=== PATIENT | male | born 1945 | race African-American/Black ===

== ENCOUNTER 2019-05-07 17:17 | Inpatient (IN) | payer OTHER ==
[~2019-05-07] VITALS: Ht 182.9 cm; Wt 87.5 kg
[2019-05-07] MEDS ORDERED: POTA20TA4 PO (18:54)
[2019-05-07] MEDS ORDERED: CIME200T6 PO (18:54)
[2019-05-07] MEDS ORDERED: CHOL200027 PO (18:54)
[2019-05-07] MEDS ORDERED: PRAV10TA2 PO (18:54)
[2019-05-07] MEDS ORDERED: SERT100T8 PO (18:54)
[2019-05-07] MEDS ORDERED: CYAN100031 PO (18:54)
[2019-05-07] MEDS ORDERED: OLAN5TAB7 PO (18:54)
[2019-05-07] MEDS ORDERED: FLUT15.812 NS (18:54)
[2019-05-07] MEDS ORDERED: ACET500T68 PO (18:54)
[2019-05-07] MEDS ORDERED: METF-550 PO (18:54)
[2019-05-07] MEDS ORDERED: QUET50TA5 PO (18:54)
[2019-05-07] MEDS ORDERED: RIVA1PAT23 TD (18:54)
[2019-05-07] MEDS ORDERED: GLIP5TAB10 PO (18:54)
[2019-05-07] MEDS ORDERED: MEMA10TA PO (18:54)
[2019-05-07] MEDS ORDERED: FLUO40CA2 PO (18:54)
[2019-05-07] MEDS ORDERED: ASPI-630 PO (18:54)
[2019-05-07] MEDS ORDERED: LISI10TA2 PO (18:54)
[2019-05-07] MEDS ORDERED: EXEN10PE3 SQ (18:54)
[2019-05-07] MEDS ORDERED: FOLI0.8C PO (18:54)
[2019-05-07] MEDS ORDERED: QUET200T4 PO (18:54)
[2019-05-07] MEDS ORDERED: MULT1CAP15 PO (18:54)
--- NOTE | 2019-05-07 19:00 | HP ---
ADMIT DATE: 05/07/2019 PSYCHIATRIC ADMISSION HISTORY AND EVALUATION This note covers elements not covered in my initial note 05/07/2019. IDENTIFYING DATA: The patient is a 73-year-old -Samoan male, referred to us from the [facility] in [place] Emergency Room where he presented from [facility] at the behest of the rn case mgr at [facility]. The patient has a history of dementia; Alzheimer's, vascular type. He has been an inpatient at [facility] for several weeks. Despite this behaviorally, he was unmanageable, more angry, irritable, labile in the evening and therefore could not be accepted for placement in a nursing facility. [facility] staff coordinated his visit to the ER, he was found to be medically stable and then referred to us for inpatient psychiatric stabilization. CHIEF COMPLAINT: "There is nothing wrong with my memory." On direct questioning after this, the patient was unaware of the year or who the president was, quite oriented just to himself. HISTORY OF PRESENT ILLNESS: The patient has a history of dementia; Alzheimer's, vascular type. Reportedly, he also has a past history of alcohol abuse, though details are unclear. Additionally, the patient has a history of PTSD. As noted, he has been at the [facility], inpatient hospitalization for 6-8 weeks and adjustments were being made in his psychotropics, but he had failed all of this. He was grabbing at nursing staff's breast. He was agitated, pacing, urinating on the floor at times, aggressive towards staff and peers. No clear history of bipolar disorder, suicidal or homicidal ideation. PAST PSYCHIATRIC HISTORY: As above. MEDICAL HISTORY: Positive for diabetes mellitus, hypertension, CHF, edema, osteoarthritis. He is in a wheelchair. DRUG ALLERGIES: Negative. CODE STATUS: DNR. FAMILY HISTORY: Noncontributory. SOCIAL HISTORY: Positive for PTSD from past trauma and service questionably. Positive for questionable alcohol abuse. No physical, sexual or elder abuse history is noted. Not known to be a perpetrator. DIET: Regular. CURRENT PSYCHOTROPICS: MRAD was reviewed. LABORATORY DATA: Reviewed. MENTAL STATUS EXAMINATION: The patient was seen individually in the evening of 05/07/2019. He is seated in a wheelchair in his room, met him shortly after he arrived on the unit. He is not very verbal. Insight, judgment, recent and remote memory, attention, concentration, fund of knowledge poor consistent with his diagnosis. He does appear somewhat paranoid, depressed. LABORATORY DATA: Reviewed. IMPRESSION: Major neurocognitive disorder, multifactorial, possibly Alzheimer, vascular, questionably alcohol with delusion, depression, behavioral disturbance; anxiety disorder, unspecified; impulse control disorder, unspecified. Rest as above. PLAN: Admit to Geropsychiatry Unit at [facility]. I will see the patient daily individually from a psychiatric standpoint. Medical followup with Dr. Garcia. Continue the patient on his current psychotropics. Observe baseline, adjust further as clinically indicated. Consider Depakote as a mood stabilizer. Estimated length of stay 10-12 days. DISPOSITION: Plans to [facility] as coordinated with the [facility]. ABIGAIL HORNE MD DR: MINOO/parul JOB#: [id number] / [id number]
[2019-05-07] MEDS ORDERED: MAG HYDROX/AL HYDROX/SIMETH 30 ML ORAL.SUSP PO PRN (19:45)
[2019-05-07] MEDS: FAMOTIDINE 20 MG TABLET PO SCH (20:08)
[2019-05-07] MEDS: QUEtiapine 100 MG TABLET. PO SCH (20:08)
[2019-05-07] MEDS: ATORVASTATIN CALCIUM 10 MG TABLET. PO SCH (20:08)
[2019-05-07] MEDS: ACETAMINOPHEN 500 MG TABLET PO SCH (20:08)
[2019-05-07 21:11] VITALS: BP 135/83
--- NOTE | 2019-05-07 21:36 | PDOC ---
Exam Note: Hamlet Note: Please also refer to the separate dictated note~for this date of service dictated separately.~Patient seen individually. Discussed the patient with Nursing staff reviewed the chart.~Reviewed interim history and current functioning. Reviewed vital signs,~Labs/ Radiology~and current medications noted below. Continue current treatment with the changes noted in the dictated addendum note Assessment: Vital Signs/I&O: Vital Signs Date Time Temp Pulse Resp B/P (MAP) Pulse Ox O2 Delivery O2 Flow Rate FiO2 05/07/19 21:11 98.2 79 18 135/83 (100) 100 Room Air Labs: Laboratory Tests Test 05/07/19 19:12 Glucose (Fingerstick) 193 mg/dL (70-99) H Current Medications: Meds: Current Medications Medications (Trade) Dose Ordered Sig/Samaria Route PRN Reason Start Time Stop Time Status Last Admin Dose Admin Acetaminophen (Tylenol) 500 mg BID PO 05/07/19 21:00 05/07/19 20:08 Famotidine (Pepcid) 20 mg HS PO 05/07/19 21:00 05/07/19 20:08 Atorvastatin Calcium (Lipitor) 5 mg QHS PO 05/07/19 21:00 05/07/19 20:08 Quetiapine Fumarate (SEROquel) 200 mg HS PO 05/07/19 21:00 05/07/19 20:08 I have reviewed the current psychotropics carefully including drug interactions. Risk benefit ratio favors no change other than as noted in my dictated progress note. Diagnosis: Problems: (1) Anxiety disorder (2) Dementia in Alzheimer's disease with delusions (3) Dementia in Alzheimer's disease with depression (4) Dementia, vascular, with delusions (5) Dementia, vascular, with depression (6) Impulse control disorder ABIGAIL HORNE MD May 07, 2019 21:36
[2019-05-08 05:34] VITALS: BP 148/76
[2019-05-08 07:14] LABS: BACTERIA,URINE 0 /HPF (0-FEW); BILIRUBIN,URINE NEG (NEG); CLARITY,URINE CLEAR; COLOR,URINE YELLOW; GLUCOSE,URINE 500 mg/dL (NEG); NITRITE,URINE NEG (NEG); SQUAMOUS EPITHELIAL CELL,UR FEW /LPF
[2019-05-08 08:44] LABS: BASO % 0 % (0-3); EOS # 0.1 x10^3/uL (0.0-0.7); EOS % 3 % (0-3); HEMATOCRIT 38.6 % (39.0-53.0); HEMOGLOBIN 12.5 g/dL (13.0-17.5); LYMPH # 1.3 x10^3/uL (1.0-4.8); LYMPH % 32 % (24-48); MEAN CORPUSCULAR HEMOGLOBIN 28 pg (25-35); MEAN CORPUSCULAR HGB CONC 33 g/dL (31-37); MEAN CORPUSCULAR VOLUME 87 fL (79-100); MONO # 0.3 x10^3/uL (0.0-1.1); MONO % 8 % (0-9); NEUT # 2.4 x10^3uL (1.8-7.7); NEUT % 57 % (31-73); PLATELET COUNT 202 x10^3/uL (140-400); RED BLOOD COUNT 4.45 x10^6/uL (4.30-5.70); RED CELL DISTRIBUTION WIDTH 14.3 % (11.5-14.5); WHITE BLOOD COUNT 4.2 x10^3/uL (4.0-11.0)
[2019-05-08 08:53] LABS: ALBUMIN/GLOBULIN RATIO 0.7 (1.0-1.7); CALCIUM 8.5 mg/dL (8.5-10.1); CREATININE 1.2 mg/dL (0.7-1.3); GFR 71.8; MAGNESIUM 1.3 mg/dL (1.8-2.4); POTASSIUM 4.1 mmol/L (3.5-5.1); TOTAL BILIRUBIN 0.3 mg/dL (0.2-1.0); TOTAL PROTEIN 7.3 g/dL (6.4-8.2)
[2019-05-08] MEDS: MEMANTINE 10 MG TABLET. PO SCH (09:00)
[2019-05-08] MEDS: CYANOCOBALAMIN (VITAMIN B-12) 1,000 MCG TABLET. PO SCH (09:08)
[2019-05-08] MEDS: MULTIVITAMIN with MINERAL TABLET. PO SCH (09:08)
[2019-05-08] MEDS: FLUoxetine HCL 20 MG CAPSULE PO SCH (09:08)
[2019-05-08] MEDS: LISINOPRIL 10 MG TABLET PO SCH (09:08)
[2019-05-08] MEDS: QUEtiapine 50 MG TABLET. PO SCH ×2 (09:08→14:13)
[2019-05-08] MEDS: CHOLECALCIFEROL (VITAMIN D3) 1,000 UNIT TABLET PO SCH (09:09)
[2019-05-08] MEDS: metFORMIN XR 500 MG TAB.ER.24H PO SCH ×2 (09:10→17:38)
[2019-05-08] MEDS: ACETAMINOPHEN 500 MG TABLET PO SCH ×2 (09:11→19:01)
[2019-05-08] MEDS: ASPIRIN 81 MG TAB.CHEW PO SCH (09:11)
[2019-05-08] MEDS: SERTRALINE 100 MG TABLET. PO SCH (09:11)
[2019-05-08] MEDS: POTASSIUM CHLORIDE 20 MEQ TABLET.ER. PO SCH (09:11)
[2019-05-08] MEDS: FOLIC ACID 1 MG TABLET PO SCH (09:12)
[2019-05-08] MEDS: RIVASTIGMINE 9.5MG PATCH. TD SCH (09:12)
[2019-05-08] MEDS: glipiZIDE 5 MG TABLET PO SCH ×2 (09:12→17:38)
[2019-05-08] MEDS: FLUTICASONE 50MCG/NASAL SPRAY 16GM BOTTLE. NS SCH (09:13)
[2019-05-08 12:59] LABS: THYROID STIM HORMONE (TSH) 2.499 uIU/mL (0.358-3.740)
--- NOTE | 2019-05-08 13:45 | PN ---
DATE: 05/08/2019 SUBJECTIVE: The patient was seen today, met with the staff, chart reviewed and also covering for Dr. Chiu. Staff reports since admission, he has settled down, mostly calm and cooperative. The patient apparently was making sexually inappropriate comments towards female staff prior to coming here. The patient apparently spent [address] [facility] in [place] and he was a resident prior to that at [facility] then he returned to [facility] and they decided to send him here because of the patient's continued behavior problems. The patient also exhibited other behavior problems including increased agitation, pacing and urinating on the floor and also grabbing nursing staff breasts. OBSERVATION: VITAL SIGNS: Temperature 98.1, blood pressure 148/76, pulse 69, respirations 18, O2 sat 97%. GENERAL: Slept about 6 hours last night. The patient's appetite is fair. The patient tends to isolate himself. MEDICATIONS: The patient's current medications include Prozac 40 mg daily plus 100 mg daily, Exelon patch 1 daily, Seroquel 50 mg b.i.d., Namenda 10 mg daily, Seroquel 200 mg at night and also olanzapine 5 mg b.i.d. p.r.n. The patient is not having any side effects. LABORATORY DATA: The patient's lab reviewed. No significant change from prior levels. ASSESSMENT: Major neurocognitive disorder, most likely Alzheimer's with delusions, depression and behavioral disturbances, generalized anxiety disorder and consider alcohol amnestic disorder. PLAN: Continue with the treatment. LENGTH OF STAY: 7-10 days. SHANIKA HILL MD DR: RANDALL/parul JOB#: [id number] / [id number]
[2019-05-08 15:37] VITALS: BP 127/83
[2019-05-08] MEDS: FAMOTIDINE 20 MG TABLET PO SCH (19:01)
[2019-05-08] MEDS: QUEtiapine 100 MG TABLET. PO SCH (19:01)
[2019-05-08] MEDS: ATORVASTATIN CALCIUM 10 MG TABLET. PO SCH (19:01)
[2019-05-08] MEDS: MAGNESIUM OXIDE 400 MG TABLET PO SCH (19:37)
--- NOTE | 2019-05-09 04:00 | EKG ---
[address] [address] Test Date: 2019-05-08 Test Time: 09:44:49 Pat Name: TOMÁS OSORIO Department: Room: [facility] 1 Gender: M Master Black Belt: TERRY : 1945 Requested By: ABIGAIL HORNE Order Number: [id number] Reading MD: Ilir Velez MD Measurements Intervals [place] Rate: 82 P: 53 NH: 190 QRS: -48 QRSD: 72 T: 85 QT: 342 QTc: 402 Interpretive Statements SINUS RHYTHM Electronically Signed On 06-09-2019 10:00:02 THIRD HELPER by Ilir Velez MD
[2019-05-09 05:37] LABS: HEMOGLOBIN A1C 7.8 % (4.8-5.6)
[2019-05-09 05:45] VITALS: BP 126/66
[2019-05-09] MEDS ORDERED: FLU VAX QS 2019-20 (36MOS+)/PF 0.5 ML SYRINGE. VAX IM ONE (09:00)
[2019-05-09] MEDS: RIVASTIGMINE 9.5MG PATCH. TD SCH (09:04)
[2019-05-09] MEDS: FLUoxetine HCL 20 MG CAPSULE PO SCH (09:05)
[2019-05-09] MEDS: metFORMIN XR 500 MG TAB.ER.24H PO SCH ×2 (09:05→16:49)
[2019-05-09] MEDS: LISINOPRIL 10 MG TABLET PO SCH (09:05)
[2019-05-09] MEDS: POTASSIUM CHLORIDE 20 MEQ TABLET.ER. PO SCH (09:05)
[2019-05-09] MEDS: FOLIC ACID 1 MG TABLET PO SCH (09:06)
[2019-05-09] MEDS: QUEtiapine 50 MG TABLET. PO SCH ×2 (09:06→14:06)
[2019-05-09] MEDS: ACETAMINOPHEN 500 MG TABLET PO SCH ×2 (09:06→20:17)
[2019-05-09] MEDS: CYANOCOBALAMIN (VITAMIN B-12) 1,000 MCG TABLET. PO SCH (09:06)
[2019-05-09] MEDS: MULTIVITAMIN with MINERAL TABLET. PO SCH (09:06)
[2019-05-09] MEDS: CHOLECALCIFEROL (VITAMIN D3) 1,000 UNIT TABLET PO SCH (09:06)
[2019-05-09] MEDS: MAGNESIUM OXIDE 400 MG TABLET PO SCH ×3 (09:06→20:17)
[2019-05-09] MEDS: SERTRALINE 100 MG TABLET. PO SCH (09:06)
[2019-05-09] MEDS: MEMANTINE 10 MG TABLET. PO SCH (09:06)
[2019-05-09] MEDS: ASPIRIN 81 MG TAB.CHEW PO SCH (09:07)
[2019-05-09] MEDS: glipiZIDE 5 MG TABLET PO SCH ×2 (09:07→16:49)
[2019-05-09] MEDS: FLUTICASONE 50MCG/NASAL SPRAY 16GM BOTTLE. NS SCH (09:07)
[2019-05-09 16:15] VITALS: BP 160/91
[2019-05-09] MEDS ORDERED: QUEtiapine 50 MG TABLET. PO ONE (20:00)
[2019-05-09] MEDS: ATORVASTATIN CALCIUM 10 MG TABLET. PO SCH (20:16)
[2019-05-09] MEDS: FAMOTIDINE 20 MG TABLET PO SCH (20:16)
[2019-05-09] MEDS: QUEtiapine 100 MG TABLET. PO SCH (20:17)
[2019-05-09] MEDS ORDERED: INSULIN GLARGINE SYRINGE. SQ SCH (21:00)
--- NOTE | 2019-05-10 04:01 | CONS ---
DATE OF CONSULTATION: 05/08/2019 REASON FOR CONSULTATION: Medical management. HISTORY OF PRESENT ILLNESS: The patient is a 73-year-old -Y[place]i male patient who apparently was at [place] [facility] as well as [facility]. He was admitted to this unit on account of being aggressive towards staff and peers, grabbing at the nursing staff breasts, agitated, pacing, urinating on the floor, all this in a background of dementia, posttraumatic stress disorder and impulse control disorder. The patient himself is very demented, does not really give any useful information. PAST MEDICAL HISTORY: Significant for type 2 diabetes mellitus, diabetic peripheral neuropathy, diabetic retinopathy and chronic kidney disease most likely due to diabetic nephropathy. He has also hypertension, benign prostatic hypertrophy, erectile dysfunction, hyperlipidemia, obstructive sleep apnea, iron deficiency anemia and gastroesophageal reflux disease. PAST SURGICAL HISTORY: Unobtainable. FAMILY HISTORY: Noncontributory. SOCIAL HISTORY: He apparently is a resident at [facility]. He apparently has questionable alcohol abuse and is known to have posttraumatic stress disorder from ____ services. ALLERGIES: He is allergic to LISINOPRIL, LOSARTAN and SILDENAFIL. MEDICATIONS: He is currently on following medications: Rivastigmine for Exelon 9.5 mg 24 hours transdermal patch daily, pravastatin sodium 10 mg at bedtime, lisinopril 10 mg once a day, aspirin 81 mg chewable tablet once a day, acetaminophen 500 mg twice a day, fluoxetine 40 mg daily, sertraline 100 mg daily, olanzapine 5 mg twice a day as needed for agitation, Seroquel 50 mg p.o. b.i.d., Seroquel 200 mg at bedtime. He is on Namenda 10 mg daily, potassium chloride 20 mEq once a day, Flonase 2 sprays to each nostril once a day, cimetidine 200 mg at bedtime, metformin 500 mg extended release, he takes 750 mg twice a day, Byetta 10 mcg in 0.04 mL injector the patient takes 250 mg mcg subcutaneously weekly, glipizide 5 mg twice a day, cyanocobalamin 1000 mcg once a day, folic acid 800 mcg once a day, vitamin D3/cholecalciferol 2000 international units once a day and multivitamin 1 tablet once a day. REVIEW OF SYSTEMS: Unobtainable. PHYSICAL EXAMINATION: GENERAL: When I saw him this afternoon, he was sitting at the edge of the bed comfortably, in no apparent distress. There is no pallor, jaundice or cyanosis. No lymphadenopathy, no thyromegaly. No jugular venous distention. No limb edema. VITAL SIGNS: His heart rate was 88, blood pressure was 127/83, temperature was 97.4, respiratory rate was 16, and oxygen saturation was 98% on room air. HEAD, EYES, EARS, NOSE AND THROAT: Showed normocephalic, atraumatic. NECK: Supple. CARDIAC: Normal first and second heart sounds. No gallop or murmur. CHEST: Clear to auscultation. No crepitation or rhonchi. ABDOMEN: Distended, soft, nontender. NEUROLOGIC: He is demented, but without any obvious lateralizing sign. All his cranial nerves are intact. He moves extremities without difficulty, ambulates without assistance or assistive devices. LABORATORY DATA: Showed a white cell count 4200, hemoglobin 12.5, hematocrit 38.6, MCV 87, and platelet count 202,000 with normal manual differential. His chemistry showed a serum sodium 139, potassium 4.1, chloride 102, bicarbonate 33, anion gap of 4, BUN 15, creatinine 1.2, estimated GFR was 72 mL per minute, glucose 188, calcium was 8.5, magnesium was 1.3. Serum iron was 45, TIBC was 199 and iron saturation was 23. His total bilirubin, AST, ALT, alkaline phosphatase were normal. Total protein was 7.3, albumin 3. Serum triglycerides were 80, total cholesterol 124, LDL cholesterol was 59, VLDL was 16, and HDL cholesterol was 49, the ratio was 2. His TSH was 2.499. His total T3 was 60 and total T4 was 6.1. Urinalysis was essentially unremarkable. IMPRESSION AND PLAN: All in all, this patient is medically stable. His vital signs are stable. All his lab works are within acceptable range. There is no evidence of any urinary tract infection. The only abnormality obviously is marked hypomagnesemia. His magnesium is only 1.3, for which I will start him on magnesium oxide. Other than that, I would continue all his other medications and we will follow all his labs that are still pending at the time of this dictation. Thank you, Dr. Chiu for allowing me to participate in the care of this patient. NATA CHE MD DR: Brianne JOB#: [id number] / [id number]
[2019-05-10] MEDS: LISINOPRIL 10 MG TABLET PO SCH (05:49)
[2019-05-10 05:58] VITALS: BP 182/102
[2019-05-10] MEDS ORDERED: INSULIN NPH/REG HUM 70/30 300 UNITS/3 ML VIAL. SQ SCH ×2 (08:00→12:00)
[2019-05-10] MEDS: SERTRALINE 100 MG TABLET. PO SCH (09:03)
[2019-05-10] MEDS: MEMANTINE 10 MG TABLET. PO SCH (09:03)
[2019-05-10] MEDS: CHOLECALCIFEROL (VITAMIN D3) 1,000 UNIT TABLET PO SCH (09:03)
[2019-05-10] MEDS: metFORMIN XR 500 MG TAB.ER.24H PO SCH ×2 (09:04→17:14)
[2019-05-10] MEDS: FOLIC ACID 1 MG TABLET PO SCH (09:04)
[2019-05-10] MEDS: FLUoxetine HCL 20 MG CAPSULE PO SCH (09:04)
[2019-05-10] MEDS: MULTIVITAMIN with MINERAL TABLET. PO SCH (09:04)
[2019-05-10] MEDS: QUEtiapine 50 MG TABLET. PO SCH ×2 (09:04→14:28)
[2019-05-10] MEDS: ACETAMINOPHEN 500 MG TABLET PO SCH ×2 (09:04→21:21)
[2019-05-10] MEDS: CYANOCOBALAMIN (VITAMIN B-12) 1,000 MCG TABLET. PO SCH (09:05)
[2019-05-10] MEDS: POTASSIUM CHLORIDE 20 MEQ TABLET.ER. PO SCH (09:05)
[2019-05-10] MEDS: ASPIRIN 81 MG TAB.CHEW PO SCH (09:05)
[2019-05-10] MEDS: MAGNESIUM OXIDE 400 MG TABLET PO SCH ×3 (09:05→21:21)
[2019-05-10] MEDS: glipiZIDE 5 MG TABLET PO SCH ×2 (09:05→17:14)
[2019-05-10] MEDS: FLUTICASONE 50MCG/NASAL SPRAY 16GM BOTTLE. NS SCH (09:06)
[2019-05-10] MEDS: RIVASTIGMINE 9.5MG PATCH. TD SCH (09:06)
--- NOTE | 2019-05-10 10:10 | PN ---
DATE: 05/09/2019 SUBJECTIVE: The patient was seen today, met with the staff, chart reviewed. The patient continued to exhibit some emotional lability, increased agitation, combative, also verbally abusive at times and the patient is also exhibiting impulse control, explosive temper and having difficulty processing information. OBSERVATION: VITAL SIGNS: Temperature 97.3, blood pressure 126/66, pulse 79, respirations 14, O2 sat 100%. GENERAL: Slept about 7 hours last night. LABORATORY DATA: The patient's lab reviewed. MEDICATIONS: The patient's current medications include Prozac 40 mg daily, Zoloft 100 mg daily, Exelon patch 9.5 mg daily, Seroquel 50 mg b.i.d. and 200 mg at night, Namenda 10 mg daily and Zyprexa 5 mg p.r.n. twice a day. The patient is not having any side effects to medications. ASSESSMENT: 1. Major neurocognitive disorder, multifactorial including Alzheimer's, vascular, alcohol-induced with delusions, depression and behavioral disturbances. 2. Anxiety disorder, unspecified. 3. Impulse control disorder, unspecified. PLAN: To continue with the treatment. Continue with the current medications. LENGTH OF STAY: 4-5 days. SHANIKA HILL MD DR: RANDALL/parul JOB#: [id number] / [id number]
[2019-05-10] MEDS: INSULIN LISPRO 300 UNITS/3 ML VIAL. SQ SCH ×2 (12:00→17:17)
[2019-05-10 15:57] VITALS: BP 137/80
[2019-05-10] MEDS: INSULIN GLARGINE SYRINGE. SQ SCH (21:00)
--- NOTE | 2019-05-10 21:15 | PDOC ---
Exam Note: Hamlet Note: Please also refer to the separate dictated note~for this date of service dictated separately.~Patient seen individually. Discussed the patient with Nursing staff reviewed the chart.~Reviewed interim history and current functioning. Reviewed vital signs,~Labs/ Radiology~and current medications noted below. Continue current treatment with the changes noted in the dictated addendum note Assessment: Vital Signs/I&O: Vital Signs Date Time Temp Pulse Resp B/P (MAP) Pulse Ox O2 Delivery O2 Flow Rate FiO2 05/10/19 15:57 97.8 83 18 137/80 (99) 98 05/08/19 05:34 Room Air I & O 05/09/19 05/09/19 05/10/19 15:00 23:00 07:00 Intake Total 960 ml 540 ml Balance 960 ml 540 ml Labs: Laboratory Tests Test 05/10/19 07:57 05/10/19 12:15 05/10/19 16:43 05/10/19 19:45 Glucose (Fingerstick) 84 mg/dL (70-99) 97 mg/dL (70-99) 181 mg/dL (70-99) H 82 mg/dL (70-99) Current Medications: Meds: Current Medications Medications (Trade) Dose Ordered Sig/Samaria Route PRN Reason Start Time Stop Time Status Last Admin Dose Admin Insulin Human Lispro (HumaLOG) 12 units BIDWMEALS SQ 05/10/19 17:00 05/10/19 17:17 I have reviewed the current psychotropics carefully including drug interactions. Risk benefit ratio favors no change other than as noted in my dictated progress note. Diagnosis: Problems: (1) Anxiety disorder (2) Dementia in Alzheimer's disease with delusions (3) Dementia in Alzheimer's disease with depression (4) Dementia, vascular, with delusions (5) Dementia, vascular, with depression (6) Impulse control disorder ABIGAIL HORNE MD May 10, 2019 21:15
[2019-05-10] MEDS: FAMOTIDINE 20 MG TABLET PO SCH (21:21)
[2019-05-10] MEDS: ATORVASTATIN CALCIUM 10 MG TABLET. PO SCH (21:21)
[2019-05-10] MEDS: QUEtiapine 100 MG TABLET. PO SCH (21:22)
[2019-05-11 05:21] VITALS: BP 136/76
[2019-05-11] MEDS: INSULIN LISPRO 300 UNITS/3 ML VIAL. SQ SCH ×3 (08:00→17:00)
[2019-05-11] MEDS: POTASSIUM CHLORIDE 20 MEQ TABLET.ER. PO SCH (08:59)
[2019-05-11] MEDS: ACETAMINOPHEN 500 MG TABLET PO SCH ×2 (08:59→21:26)
[2019-05-11] MEDS: ASPIRIN 81 MG TAB.CHEW PO SCH (08:59)
[2019-05-11] MEDS: FOLIC ACID 1 MG TABLET PO SCH (09:00)
[2019-05-11] MEDS: glipiZIDE 5 MG TABLET PO SCH ×2 (09:00→17:18)
[2019-05-11] MEDS: SERTRALINE 100 MG TABLET. PO SCH (09:00)
[2019-05-11] MEDS: CHOLECALCIFEROL (VITAMIN D3) 1,000 UNIT TABLET PO SCH (09:00)
[2019-05-11] MEDS: MULTIVITAMIN with MINERAL TABLET. PO SCH (09:00)
[2019-05-11] MEDS: MAGNESIUM OXIDE 400 MG TABLET PO SCH ×3 (09:00→21:26)
[2019-05-11] MEDS: metFORMIN XR 500 MG TAB.ER.24H PO SCH ×2 (09:00→17:18)
[2019-05-11] MEDS: FLUTICASONE 50MCG/NASAL SPRAY 16GM BOTTLE. NS SCH (09:01)
[2019-05-11] MEDS: LISINOPRIL 10 MG TABLET PO SCH (09:01)
[2019-05-11] MEDS: CYANOCOBALAMIN (VITAMIN B-12) 1,000 MCG TABLET. PO SCH (09:01)
[2019-05-11] MEDS: QUEtiapine 25 MG TABLET. PO SCH (09:01)
[2019-05-11] MEDS: QUEtiapine 50 MG TABLET. PO SCH (14:39)
[2019-05-11 16:17] VITALS: BP 154/85
[2019-05-11] MEDS ORDERED: DEXTROSE ORAL GEL 15 GM TUBE. ONE (20:40)
[2019-05-11] MEDS: INSULIN GLARGINE SYRINGE. SQ SCH (21:00)
[2019-05-11] MEDS: QUEtiapine 100 MG TABLET. PO SCH (21:26)
[2019-05-11] MEDS: FAMOTIDINE 20 MG TABLET PO SCH (21:26)
[2019-05-11] MEDS: ATORVASTATIN CALCIUM 10 MG TABLET. PO SCH (21:26)
--- NOTE | 2019-05-11 21:33 | PDOC ---
Exam Note: Hamlet Note: Please also refer to the separate dictated note~for this date of service dictated separately.~Patient seen individually. Discussed the patient with Nursing staff reviewed the chart.~Reviewed interim history and current functioning. Reviewed vital signs,~Labs/ Radiology~and current medications noted below. Continue current treatment with the changes noted in the dictated addendum note Assessment: Vital Signs/I&O: Vital Signs Date Time Temp Pulse Resp B/P (MAP) Pulse Ox O2 Delivery O2 Flow Rate FiO2 05/11/19 16:17 98.6 84 16 154/85 (108) 97 05/08/19 05:34 Room Air I & O 05/10/19 05/10/19 05/11/19 15:00 23:00 07:00 Intake Total 840 ml 720 ml Balance 840 ml 720 ml Labs: Laboratory Tests Test 05/11/19 12:02 05/11/19 17:06 05/11/19 19:19 05/11/19 20:39 Glucose (Fingerstick) 147 mg/dL (70-99) H 111 mg/dL (70-99) H 57 mg/dL (70-99) L 55 mg/dL (70-99) L Current Medications: Meds: Current Medications Medications (Trade) Dose Ordered Sig/Samaria Route PRN Reason Start Time Stop Time Status Last Admin Dose Admin Quetiapine Fumarate (SEROquel) 75 mg DAILY PO 05/11/19 09:00 05/11/19 09:01 Quetiapine Fumarate (SEROquel) 50 mg 1400 PO 05/11/19 14:00 05/11/19 14:39 I have reviewed the current psychotropics carefully including drug interactions. Risk benefit ratio favors no change other than as noted in my dictated progress note. Diagnosis: Problems: (1) Anxiety disorder (2) Dementia in Alzheimer's disease with delusions (3) Dementia in Alzheimer's disease with depression (4) Dementia, vascular, with delusions (5) Dementia, vascular, with depression (6) Impulse control disorder ABIGAIL HORNE MD May 11, 2019 21:33
[2019-05-12 05:18] VITALS: BP 120/67
[2019-05-12] MEDS: FLUTICASONE 50MCG/NASAL SPRAY 16GM BOTTLE. NS SCH ×2 (09:00→09:14)
[2019-05-12] MEDS: ASPIRIN 81 MG TAB.CHEW PO SCH (09:12)
[2019-05-12] MEDS: CYANOCOBALAMIN (VITAMIN B-12) 1,000 MCG TABLET. PO SCH (09:12)
[2019-05-12] MEDS: SERTRALINE 100 MG TABLET. PO SCH (09:13)
[2019-05-12] MEDS: MAGNESIUM OXIDE 400 MG TABLET PO SCH ×3 (09:13→19:22)
[2019-05-12] MEDS: CHOLECALCIFEROL (VITAMIN D3) 1,000 UNIT TABLET PO SCH (09:13)
[2019-05-12] MEDS: glipiZIDE 5 MG TABLET PO SCH ×2 (09:13→17:33)
[2019-05-12] MEDS: POTASSIUM CHLORIDE 20 MEQ TABLET.ER. PO SCH (09:13)
[2019-05-12] MEDS: QUEtiapine 25 MG TABLET. PO SCH (09:13)
[2019-05-12] MEDS: LISINOPRIL 10 MG TABLET PO SCH (09:14)
[2019-05-12] MEDS: MULTIVITAMIN with MINERAL TABLET. PO SCH (09:14)
[2019-05-12] MEDS: FOLIC ACID 1 MG TABLET PO SCH (09:14)
[2019-05-12] MEDS: metFORMIN XR 500 MG TAB.ER.24H PO SCH ×2 (09:14→17:33)
[2019-05-12] MEDS: ACETAMINOPHEN 500 MG TABLET PO SCH ×2 (09:15→19:21)
[2019-05-12] MEDS: INSULIN LISPRO 300 UNITS/3 ML VIAL. SQ SCH ×3 (09:17→17:00)
[2019-05-12] MEDS: QUEtiapine 50 MG TABLET. PO SCH (13:54)
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
[2019-05-12 15:44] VITALS: BP 138/82
[2019-05-12] MEDS: METHYL SALICYLATE/MENTHOL TOPICAL OINTMENT 57GM TUBE. TP PRN (16:42)
[2019-05-12] MEDS: DEXTROSE ORAL GEL 15 GM TUBE. PO PRN (19:20)
[2019-05-12] MEDS: QUEtiapine 100 MG TABLET. PO SCH (19:21)
[2019-05-12] MEDS: FAMOTIDINE 20 MG TABLET PO SCH (19:21)
[2019-05-12] MEDS: ATORVASTATIN CALCIUM 10 MG TABLET. PO SCH (19:22)
[2019-05-12] MEDS: INSULIN GLARGINE SYRINGE. SQ SCH (19:22)
--- NOTE | 2019-05-12 20:54 | PDOC ---
Exam Note: Hamlet Note: Please also refer to the separate dictated note~for this date of service dictated separately.~Patient seen individually. Discussed the patient with Nursing staff reviewed the chart.~Reviewed interim history and current functioning. Reviewed vital signs,~Labs/ Radiology~and current medications noted below. Continue current treatment with the changes noted in the dictated addendum note Assessment: Vital Signs/I&O: Vital Signs Date Time Temp Pulse Resp B/P (MAP) Pulse Ox O2 Delivery O2 Flow Rate FiO2 05/12/19 15:44 98.2 88 18 138/82 (100) 99 05/12/19 05:18 Room Air I & O 05/11/19 05/11/19 05/12/19 14:59 22:59 06:59 Intake Total 840 ml 360 ml Balance 840 ml 360 ml Labs: Laboratory Tests Test 05/11/19 21:30 05/12/19 07:31 05/12/19 12:08 05/12/19 16:48 Glucose (Fingerstick) 88 mg/dL (70-99) 83 mg/dL (70-99) 190 mg/dL (70-99) H 74 mg/dL (70-99) Test 05/12/19 19:13 05/12/19 19:49 Glucose (Fingerstick) 57 mg/dL (70-99) L 69 mg/dL (70-99) L Current Medications: Meds: Current Medications Medications (Trade) Dose Ordered Sig/Samaria Route PRN Reason Start Time Stop Time Status Last Admin Dose Admin Glucose (Insta-Glucose) 15 gm PRN Q15MIN PRN PO LOW BLOOD SUGAR 05/12/19 09:45 05/12/19 19:20 I have reviewed the current psychotropics carefully including drug interactions. Risk benefit ratio favors no change other than as noted in my dictated progress note. Diagnosis: Problems: (1) Anxiety disorder (2) Dementia in Alzheimer's disease with delusions (3) Dementia in Alzheimer's disease with depression (4) Dementia, vascular, with delusions (5) Dementia, vascular, with depression (6) Impulse control disorder ABIGAIL HORNE MD May 12, 2019 20:54
[2019-05-13 05:44] VITALS: BP 153/91
[2019-05-13] MEDS: metFORMIN XR 500 MG TAB.ER.24H PO SCH ×2 (07:41→17:00)
[2019-05-13] MEDS: DIVALPROEX 125 MG CAP.SPRINK PO SCH ×2 (07:41→17:00)
[2019-05-13] MEDS: MAGNESIUM OXIDE 400 MG TABLET PO SCH ×3 (07:41→19:19)
[2019-05-13] MEDS: POTASSIUM CHLORIDE 20 MEQ TABLET.ER. PO SCH (07:42)
[2019-05-13] MEDS: FOLIC ACID 1 MG TABLET PO SCH (07:42)
[2019-05-13] MEDS: LISINOPRIL 10 MG TABLET PO SCH (07:42)
[2019-05-13] MEDS: ASPIRIN 81 MG TAB.CHEW PO SCH (07:42)
[2019-05-13] MEDS: CYANOCOBALAMIN (VITAMIN B-12) 1,000 MCG TABLET. PO SCH (07:42)
[2019-05-13] MEDS: CHOLECALCIFEROL (VITAMIN D3) 1,000 UNIT TABLET PO SCH (07:43)
[2019-05-13] MEDS: SERTRALINE 100 MG TABLET. PO SCH (07:43)
[2019-05-13] MEDS: QUEtiapine 25 MG TABLET. PO SCH (07:43)
[2019-05-13] MEDS: glipiZIDE 5 MG TABLET PO SCH ×2 (07:43→17:00)
[2019-05-13] MEDS: MULTIVITAMIN with MINERAL TABLET. PO SCH (07:43)
[2019-05-13] MEDS: ACETAMINOPHEN 500 MG TABLET PO SCH ×2 (07:43→19:22)
[2019-05-13] MEDS: FLUTICASONE 50MCG/NASAL SPRAY 16GM BOTTLE. NS SCH (09:00)
[2019-05-13] MEDS: INSULIN LISPRO 300 UNITS/3 ML VIAL. SQ SCH ×3 (09:07→17:00)
[2019-05-13] MEDS: QUEtiapine 50 MG TABLET. PO SCH (14:00)
[2019-05-13 16:25] VITALS: BP 101/61
[2019-05-13] MEDS ORDERED: INSULIN GLARGINE SYRINGE. SQ SCH (18:15)
[2019-05-13] MEDS: DEXTROSE ORAL GEL 15 GM TUBE. PO PRN (19:17)
[2019-05-13] MEDS: QUEtiapine 100 MG TABLET. PO SCH (19:19)
[2019-05-13] MEDS: FAMOTIDINE 20 MG TABLET PO SCH (19:19)
[2019-05-13] MEDS: ATORVASTATIN CALCIUM 10 MG TABLET. PO SCH (19:20)
[2019-05-13] MEDS: INSULIN GLARGINE SYRINGE. SQ SCH (19:21)
[2019-05-13 20:13] VITALS: BP 146/93
--- NOTE | 2019-05-13 21:12 | PDOC ---
Exam Note: Hamlet Note: Please also refer to the separate dictated note~for this date of service dictated separately.~Patient seen individually. Discussed the patient with Nursing staff reviewed the chart.~Reviewed interim history and current functioning. Reviewed vital signs,~Labs/ Radiology~and current medications noted below. Continue current treatment with the changes noted in the dictated addendum note Assessment: Vital Signs/I&O: Vital Signs Date Time Temp Pulse Resp B/P (MAP) Pulse Ox O2 Delivery O2 Flow Rate FiO2 05/13/19 20:13 78 20 146/93 (110) 96 Room Air 05/13/19 16:25 98.0 I & O 05/12/19 05/12/19 05/13/19 15:00 23:00 07:00 Intake Total 720 ml 480 ml 240 ml Balance 720 ml 480 ml 240 ml Labs: Laboratory Tests Test 05/13/19 07:22 05/13/19 11:50 05/13/19 17:01 05/13/19 19:13 Glucose (Fingerstick) 162 mg/dL (70-99) H 110 mg/dL (70-99) H 73 mg/dL (70-99) 55 mg/dL (70-99) L Test 05/13/19 19:48 05/13/19 20:12 Glucose (Fingerstick) 74 mg/dL (70-99) 119 mg/dL (70-99) H Current Medications: Meds: Current Medications Medications (Trade) Dose Ordered Sig/Samaria Route PRN Reason Start Time Stop Time Status Last Admin Dose Admin Divalproex Sodium (Depakote Sprinkles) 125 mg 0900,1700 PO 05/13/19 09:00 05/13/19 07:41 I have reviewed the current psychotropics carefully including drug interactions. Risk benefit ratio favors no change other than as noted in my dictated progress note. Diagnosis: Problems: (1) Anxiety disorder (2) Dementia in Alzheimer's disease with delusions (3) Dementia in Alzheimer's disease with depression (4) Dementia, vascular, with delusions (5) Dementia, vascular, with depression (6) Impulse control disorder ABIGAIL HORNE MD May 13, 2019 21:12
--- NOTE | 2019-05-14 00:50 | PN ---
DATE: 05/10/2019 PSYCHIATRIC PROGRESS NOTE This late entry 05/10/2019 covers elements not covered in my initial note. SUBJECTIVE: I met with the patient evening of 05/10/2019. Discussed with nursing staff, reviewed the chart, and reviewed information from Dr. Hernandez, who covered for me over the past couple of days. The patient slept 5-1/2 hours previous night per GREGORY Garcia. He remains confused, oriented x 1, verbally aggressive after lunch. He is quite demented and it is unclear whether Namenda and Exelon patch any benefit for him and we will stop it and change the Prozac 40 mg a day to Zoloft 100 mg a day for his mood, anxiety, irritability, and obsessive thought processes. REVIEW OF SYSTEMS: No CV, , pulmonary, eye, ENT system symptoms on review. Reliability poor. Gait unsteady at times. MENTAL STATUS EXAM: Oriented to himself. Insight, judgment, recent and remote memory, attention, concentration, fund of knowledge poor, consistent with his diagnosis mentioned in my initial note. PLAN: Make the changes noted above and increase the Seroquel from 50 mg twice a day and 200 mg at bedtime to 75 mg in the morning, 50 mg in the afternoon, and 200 mg at night. Rest as above. ABIGAIL HORNE MD DR: MINOO/parul JOB#: [id number] / [id number]
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
[2019-05-14 04:54] VITALS: BP 166/82
[2019-05-14] MEDS: INSULIN LISPRO 300 UNITS/3 ML VIAL. SQ SCH ×3 (08:03→17:18)
[2019-05-14] MEDS: metFORMIN XR 500 MG TAB.ER.24H PO SCH ×2 (08:03→16:30)
[2019-05-14] MEDS: FLUTICASONE 50MCG/NASAL SPRAY 16GM BOTTLE. NS SCH (08:04)
[2019-05-14] MEDS: ASPIRIN 81 MG TAB.CHEW PO SCH (08:05)
[2019-05-14] MEDS: POTASSIUM CHLORIDE 20 MEQ TABLET.ER. PO SCH (08:05)
[2019-05-14] MEDS: DIVALPROEX 125 MG CAP.SPRINK PO SCH ×2 (08:05→16:06)
[2019-05-14] MEDS: MAGNESIUM OXIDE 400 MG TABLET PO SCH ×3 (08:05→19:52)
[2019-05-14] MEDS: FOLIC ACID 1 MG TABLET PO SCH (08:05)
[2019-05-14] MEDS: LISINOPRIL 10 MG TABLET PO SCH (08:06)
[2019-05-14] MEDS: QUEtiapine 25 MG TABLET. PO SCH (08:06)
[2019-05-14] MEDS: MULTIVITAMIN with MINERAL TABLET. PO SCH (08:06)
[2019-05-14] MEDS: ACETAMINOPHEN 500 MG TABLET PO SCH ×2 (08:06→19:52)
[2019-05-14] MEDS: CYANOCOBALAMIN (VITAMIN B-12) 1,000 MCG TABLET. PO SCH (08:06)
[2019-05-14] MEDS: SERTRALINE 100 MG TABLET. PO SCH (08:07)
[2019-05-14] MEDS: CHOLECALCIFEROL (VITAMIN D3) 1,000 UNIT TABLET PO SCH (08:07)
[2019-05-14] MEDS ORDERED: EXENATIDE SQ SCH (09:00)
[2019-05-14 09:42] LABS: BASO % 0 % (0-3); EOS # 0.2 x10^3/uL (0.0-0.7); EOS % 3 % (0-3); HEMATOCRIT 35.8 % (39.0-53.0); HEMOGLOBIN 11.8 g/dL (13.0-17.5); LYMPH % 19 % (24-48); MEAN CORPUSCULAR HEMOGLOBIN 29 pg (25-35); MEAN CORPUSCULAR HGB CONC 33 g/dL (31-37); MEAN CORPUSCULAR VOLUME 88 fL (79-100); MONO # 0.5 x10^3/uL (0.0-1.1); MONO % 11 % (0-9); NEUT # 3.3 x10^3uL (1.8-7.7); NEUT % 67 % (31-73); PLATELET COUNT 218 x10^3/uL (140-400); RED BLOOD COUNT 4.08 x10^6/uL (4.30-5.70); RED CELL DISTRIBUTION WIDTH 14.8 % (11.5-14.5)
[2019-05-14 09:53] LABS: ALBUMIN 3.1 g/dL (3.4-5.0); ALBUMIN/GLOBULIN RATIO 0.8 (1.0-1.7); CREATININE 1.2 mg/dL (0.7-1.3); GFR 71.8; POTASSIUM 4.4 mmol/L (3.5-5.1); TOTAL BILIRUBIN 0.3 mg/dL (0.2-1.0); TOTAL PROTEIN 7.1 g/dL (6.4-8.2)
--- NOTE | 2019-05-14 11:07 | PN ---
DATE: 05/13/2019 PSYCHIATRIC PROGRESS NOTE This late entry 05/13/2019 covers elements not covered in my initial note. SUBJECTIVE: I met with the patient evening of 05/13/2019. Per GREGORY Torres, the patient slept 5-1/4 hours previous night. He remains confused, forgetful, less agitated, but redirected. He did receive Zyprexa p.r.n. at night, seemed to do better and gets more agitated, confused in the evening, sometimes sexually inappropriate. He was sedated in the evening of 05/13/2019. His medications at 1700 were held as a consequence of this. Blood sugar was low, will defer to Dr. Garcia. REVIEW OF SYSTEMS: No CV, , pulmonary, eye, ENT system symptoms on review. Reliability poor. MENTAL STATUS EXAM: Oriented to himself. Insight, judgment, recent and remote memory, attention, concentration, fund of knowledge poor, consistent with his diagnosis. IMPRESSION: Major neurocognitive disorder, Alzheimer, vascular with delusion, depression, behavioral disturbance; anxiety disorder, unspecified; impulse control disorder, unspecified; post-traumatic stress disorder. Rest unchanged from admission. PLAN: Continue current psychotropics, Zoloft 100 mg a day, Seroquel 75 mg a.m., 50 mg at 1400, 200 mg at bedtime. We may need to reduce this if sedation persists. Continue Zyprexa p.r.n., Depakote Sprinkles 125 mg twice a day. Check CBC, CMP, valproic acid level, then adjust as clinically indicated. ABIGAIL HORNE MD DR: MINOO/parul JOB#: [id number] / [id number]
[2019-05-14] MEDS ORDERED: INSULIN LISPRO 300 UNITS/3 ML VIAL. SQ SCH (12:00)
[2019-05-14] MEDS: QUEtiapine 50 MG TABLET. PO SCH (13:49)
[2019-05-14 15:47] VITALS: BP 110/72
[2019-05-14] MEDS: QUEtiapine 100 MG TABLET. PO SCH (19:52)
[2019-05-14] MEDS: FAMOTIDINE 20 MG TABLET PO SCH (19:53)
[2019-05-14] MEDS: PRAZOSIN 1 MG CAPSULE. PO SCH (19:53)
[2019-05-14] MEDS: ATORVASTATIN CALCIUM 10 MG TABLET. PO SCH (19:53)
[2019-05-14] MEDS: INSULIN GLARGINE SYRINGE. SQ SCH (19:58)
--- NOTE | 2019-05-14 21:00 | PDOC ---
Exam Note: Hamlet Note: Please also refer to the separate dictated note~for this date of service dictated separately.~Patient seen individually. Discussed the patient with Nursing staff reviewed the chart.~Reviewed interim history and current functioning. Reviewed vital signs,~Labs/ Radiology~and current medications noted below. Continue current treatment with the changes noted in the dictated addendum note Assessment: Vital Signs/I&O: Vital Signs Date Time Temp Pulse Resp B/P (MAP) Pulse Ox O2 Delivery O2 Flow Rate FiO2 05/14/19 19:53 84 163/72 05/14/19 15:47 97.4 16 98 05/14/19 04:54 Room Air I & O 05/13/19 05/13/19 05/14/19 15:00 23:00 07:00 Intake Total 960 ml 480 ml Balance 960 ml 480 ml Labs: Laboratory Tests Test 05/14/19 07:07 05/14/19 09:18 05/14/19 11:39 05/14/19 16:36 Glucose (Fingerstick) 122 mg/dL (70-99) H 127 mg/dL (70-99) H 113 mg/dL (70-99) H White Blood Count 5.0 x10^3/uL (4.0-11.0) Red Blood Count 4.08 x10^6/uL (4.30-5.70) L Hemoglobin 11.8 g/dL (13.0-17.5) L Hematocrit 35.8 % (39.0-53.0) L Mean Corpuscular Volume 88 fL (79-100) Mean Corpuscular Hemoglobin 29 pg (25-35) Mean Corpuscular Hemoglobin Concent 33 g/dL (31-37) Red Cell Distribution Width 14.8 % (11.5-14.5) H Platelet Count 218 x10^3/uL (140-400) Neutrophils (%) (Auto) 67 % (31-73) Lymphocytes (%) (Auto) 19 % (24-48) L Monocytes (%) (Auto) 11 % (0-9) H Eosinophils (%) (Auto) 3 % (0-3) Basophils (%) (Auto) 0 % (0-3) Neutrophils # (Auto) 3.3 x10^3uL (1.8-7.7) Lymphocytes # (Auto) 1.0 x10^3/uL (1.0-4.8) Monocytes # (Auto) 0.5 x10^3/uL (0.0-1.1) Eosinophils # (Auto) 0.2 x10^3/uL (0.0-0.7) Basophils # (Auto) 0.0 x10^3/uL (0.0-0.2) Sodium Level 142 mmol/L (136-145) Potassium Level 4.4 mmol/L (3.5-5.1) Chloride Level 104 mmol/L (98-107) Carbon Dioxide Level 32 mmol/L (21-32) Anion Gap 6 (6-14) Blood Urea Nitrogen 20 mg/dL (8-26) Creatinine 1.2 mg/dL (0.7-1.3) Estimated GFR (Cockcroft-Gault) 71.8 BUN/Creatinine Ratio 17 (6-20) Glucose Level 181 mg/dL (70-99) H Calcium Level 9.0 mg/dL (8.5-10.1) Total Bilirubin 0.3 mg/dL (0.2-1.0) Aspartate Amino Transferase (AST) 15 U/L (15-37) Alanine Aminotransferase (ALT) 19 U/L (16-63) Alkaline Phosphatase 56 U/L (46-116) Total Protein 7.1 g/dL (6.4-8.2) Albumin 3.1 g/dL (3.4-5.0) L Albumin/Globulin Ratio 0.8 (1.0-1.7) L Test 05/14/19 19:16 Glucose (Fingerstick) 161 mg/dL (70-99) H Current Medications: Meds: Current Medications Medications (Trade) Dose Ordered Sig/Samaria Route PRN Reason Start Time Stop Time Status Last Admin Dose Admin Insulin Human Lispro (HumaLOG) 8 units TIDWMEALS SQ 05/14/19 08:00 05/14/19 17:18 Prazosin HCl (Minipress) 1 mg HS PO 05/14/19 21:00 05/15/19 23:00 05/14/19 19:53 I have reviewed the current psychotropics carefully including drug interactions. Risk benefit ratio favors no change other than as noted in my dictated progress note. Diagnosis: Problems: (1) Anxiety disorder (2) Dementia in Alzheimer's disease with delusions (3) Dementia in Alzheimer's disease with depression (4) Dementia, vascular, with delusions (5) Dementia, vascular, with depression (6) Impulse control disorder ABIGAIL HORNE MD May 14, 2019 21:00
[2019-05-15 04:58] VITALS: BP 152/81
[2019-05-15] MEDS: metFORMIN XR 500 MG TAB.ER.24H PO SCH ×2 (08:23→16:53)
[2019-05-15] MEDS: FLUTICASONE 50MCG/NASAL SPRAY 16GM BOTTLE. NS SCH (08:23)
[2019-05-15] MEDS: ASPIRIN 81 MG TAB.CHEW PO SCH (08:23)
[2019-05-15] MEDS: LISINOPRIL 10 MG TABLET PO SCH (08:24)
[2019-05-15] MEDS: POTASSIUM CHLORIDE 20 MEQ TABLET.ER. PO SCH (08:24)
[2019-05-15] MEDS: DIVALPROEX 125 MG CAP.SPRINK PO SCH ×2 (08:24→16:53)
[2019-05-15] MEDS: QUEtiapine 25 MG TABLET. PO SCH (08:24)
[2019-05-15] MEDS: MAGNESIUM OXIDE 400 MG TABLET PO SCH ×3 (08:24→21:54)
[2019-05-15] MEDS: FOLIC ACID 1 MG TABLET PO SCH (08:24)
[2019-05-15] MEDS: CHOLECALCIFEROL (VITAMIN D3) 1,000 UNIT TABLET PO SCH (08:25)
[2019-05-15] MEDS: ACETAMINOPHEN 500 MG TABLET PO SCH ×2 (08:25→21:55)
[2019-05-15] MEDS: MULTIVITAMIN with MINERAL TABLET. PO SCH (08:25)
[2019-05-15] MEDS: CYANOCOBALAMIN (VITAMIN B-12) 1,000 MCG TABLET. PO SCH (08:25)
[2019-05-15] MEDS: SERTRALINE 100 MG TABLET. PO SCH (08:25)
[2019-05-15] MEDS: INSULIN LISPRO 300 UNITS/3 ML VIAL. SQ SCH ×2 (08:26→12:22)
[2019-05-15] MEDS: QUEtiapine 50 MG TABLET. PO SCH (13:12)
[2019-05-15 16:42] VITALS: BP 98/64
[2019-05-15] MEDS: INSULIN GLARGINE SYRINGE. SQ SCH (21:00)
--- NOTE | 2019-05-15 21:26 | PDOC ---
Exam Note: Hamlet Note: Please also refer to the separate dictated note~for this date of service dictated separately.~Patient seen individually. Discussed the patient with Nursing staff reviewed the chart.~Reviewed interim history and current functioning. Reviewed vital signs,~Labs/ Radiology~and current medications noted below. Continue current treatment with the changes noted in the dictated addendum note Assessment: Vital Signs/I&O: Vital Signs Date Time Temp Pulse Resp B/P (MAP) Pulse Ox O2 Delivery O2 Flow Rate FiO2 05/15/19 16:42 98.2 104 20 98/64 (75) 98 Room Air I & O 05/14/19 05/14/19 05/15/19 15:00 23:00 07:00 Intake Total 1080 ml 600 ml Balance 1080 ml 600 ml Labs: Laboratory Tests Test 05/15/19 07:49 05/15/19 11:46 05/15/19 16:33 05/15/19 19:18 Glucose (Fingerstick) 128 mg/dL (70-99) H 165 mg/dL (70-99) H 96 mg/dL (70-99) 39 mg/dL (70-99) *L Test 05/15/19 20:09 Glucose (Fingerstick) 83 mg/dL (70-99) Current Medications: Meds: Current Medications Medications (Trade) Dose Ordered Sig/Samaria Route PRN Reason Start Time Stop Time Status Last Admin Dose Admin Olanzapine (ZyPREXA ZYDIS) 5 mg PRN QID PRN PO PSYCHOSIS 05/14/19 21:45 05/15/19 12:17 I have reviewed the current psychotropics carefully including drug interactions. Risk benefit ratio favors no change other than as noted in my dictated progress note. Diagnosis: Problems: (1) Anxiety disorder (2) Dementia in Alzheimer's disease with delusions (3) Dementia in Alzheimer's disease with depression (4) Dementia, vascular, with delusions (5) Dementia, vascular, with depression (6) Impulse control disorder ABIGAIL HORNE MD May 15, 2019 21:26
[2019-05-15] MEDS: ATORVASTATIN CALCIUM 10 MG TABLET. PO SCH (21:54)
[2019-05-15] MEDS: FAMOTIDINE 20 MG TABLET PO SCH (21:55)
[2019-05-15] MEDS: QUEtiapine 100 MG TABLET. PO SCH (21:55)
[2019-05-15] MEDS: PRAZOSIN 1 MG CAPSULE. PO SCH (22:00)
[2019-05-16 05:05] VITALS: BP 104/52
[2019-05-16] MEDS: INSULIN LISPRO 300 UNITS/3 ML VIAL. SQ SCH ×3 (08:00→17:00)
[2019-05-16] MEDS: MULTIVITAMIN with MINERAL TABLET. PO SCH (08:19)
[2019-05-16] MEDS: CYANOCOBALAMIN (VITAMIN B-12) 1,000 MCG TABLET. PO SCH (08:19)
[2019-05-16] MEDS: DIVALPROEX 125 MG CAP.SPRINK PO SCH ×2 (08:19→17:00)
[2019-05-16] MEDS: QUEtiapine 25 MG TABLET. PO SCH (08:19)
[2019-05-16] MEDS: POTASSIUM CHLORIDE 20 MEQ TABLET.ER. PO SCH (08:19)
[2019-05-16] MEDS: FOLIC ACID 1 MG TABLET PO SCH (08:19)
[2019-05-16] MEDS: metFORMIN XR 500 MG TAB.ER.24H PO SCH ×2 (08:19→17:00)
[2019-05-16] MEDS: CHOLECALCIFEROL (VITAMIN D3) 1,000 UNIT TABLET PO SCH (08:20)
[2019-05-16] MEDS: ASPIRIN 81 MG TAB.CHEW PO SCH (08:20)
[2019-05-16] MEDS: MAGNESIUM OXIDE 400 MG TABLET PO SCH ×3 (08:20→21:53)
[2019-05-16] MEDS: SERTRALINE 100 MG TABLET. PO SCH (08:21)
[2019-05-16] MEDS: ACETAMINOPHEN 500 MG TABLET PO SCH ×2 (08:21→21:53)
[2019-05-16] MEDS: LISINOPRIL 10 MG TABLET PO SCH (08:21)
[2019-05-16] MEDS: FLUTICASONE 50MCG/NASAL SPRAY 16GM BOTTLE. NS SCH (08:22)
[2019-05-16 08:34] LABS: ALBUMIN/GLOBULIN RATIO 0.7 (1.0-1.7); ALK PHOS 57 U/L (46-116); ALT (SGPT) 18 U/L (16-63); ANION GAP 8 (6-14); AST (SGOT) 15 U/L (15-37); BLOOD UREA NITROGEN 18 mg/dL (8-26); BUN/CREATININE RATIO 16 (6-20); CALCIUM 8.8 mg/dL (8.5-10.1); CARBON DIOXIDE 29 mmol/L (21-32); CHLORIDE 104 mmol/L (98-107); CREATININE 1.1 mg/dL (0.7-1.3); GFR 79.4; GLUCOSE 145 mg/dL (70-99); POTASSIUM 4.4 mmol/L (3.5-5.1); SODIUM 141 mmol/L (136-145); TOTAL BILIRUBIN 0.3 mg/dL (0.2-1.0); TOTAL PROTEIN 7.1 g/dL (6.4-8.2)
[2019-05-16 08:57] LABS: BASO % 0 % (0-3); EOS # 0.2 x10^3/uL (0.0-0.7); EOS % 3 % (0-3); HEMATOCRIT 35.9 % (39.0-53.0); HEMOGLOBIN 11.7 g/dL (13.0-17.5); LYMPH # 0.9 x10^3/uL (1.0-4.8); LYMPH % 18 % (24-48); MEAN CORPUSCULAR HEMOGLOBIN 29 pg (25-35); MEAN CORPUSCULAR HGB CONC 33 g/dL (31-37); MEAN CORPUSCULAR VOLUME 88 fL (79-100); MONO # 0.7 x10^3/uL (0.0-1.1); MONO % 15 % (0-9); NEUT # 3.3 x10^3uL (1.8-7.7); NEUT % 64 % (31-73); PLATELET COUNT 211 x10^3/uL (140-400); RED BLOOD COUNT 4.08 x10^6/uL (4.30-5.70); RED CELL DISTRIBUTION WIDTH 14.8 % (11.5-14.5); WHITE BLOOD COUNT 5.1 x10^3/uL (4.0-11.0)
[2019-05-16 09:28] LABS: VAL ACID 16 mcg/mL (50-100)
[2019-05-16] MEDS: QUEtiapine 50 MG TABLET. PO SCH (12:59)
--- NOTE | 2019-05-16 13:54 | RAD ---
AP chest. HISTORY: Diminished lung sounds, congestion AP view was taken of the chest. There is elevation of the right diaphragm. I do not have an old study for comparison. Heart is within normal limits in size. There is mild atelectasis in the right lung base without other definite infiltrates. There is not evidence of heart failure. IMPRESSION: 1. Elevated right diaphragm. 2. Linear atelectasis without other definite infiltrates. Electronically signed by: Onel Rojo MD (05/16/2019 1:51 PM) [id number]
[2019-05-16 15:52] VITALS: BP 161/88
--- NOTE | 2019-05-16 20:47 | PDOC ---
Exam Note: Hamlet Note: Please also refer to the separate dictated note~for this date of service dictated separately.~Patient seen individually. Discussed the patient with Nursing staff reviewed the chart.~Reviewed interim history and current functioning. Reviewed vital signs,~Labs/ Radiology~and current medications noted below. Continue current treatment with the changes noted in the dictated addendum note Assessment: Vital Signs/I&O: Vital Signs Date Time Temp Pulse Resp B/P (MAP) Pulse Ox O2 Delivery O2 Flow Rate FiO2 05/16/19 15:52 97.7 89 16 161/88 (112) 99 05/15/19 16:42 Room Air I & O 05/15/19 05/15/19 05/16/19 15:00 23:00 07:00 Intake Total 480 ml 480 ml Balance 480 ml 480 ml Labs: Laboratory Tests Test 05/16/19 04:59 05/16/19 08:05 05/16/19 11:38 05/16/19 16:25 Glucose (Fingerstick) 109 mg/dL (70-99) H 160 mg/dL (70-99) H 143 mg/dL (70-99) H White Blood Count 5.1 x10^3/uL (4.0-11.0) Red Blood Count 4.08 x10^6/uL (4.30-5.70) L Hemoglobin 11.7 g/dL (13.0-17.5) L Hematocrit 35.9 % (39.0-53.0) L Mean Corpuscular Volume 88 fL (79-100) Mean Corpuscular Hemoglobin 29 pg (25-35) Mean Corpuscular Hemoglobin Concent 33 g/dL (31-37) Red Cell Distribution Width 14.8 % (11.5-14.5) H Platelet Count 211 x10^3/uL (140-400) Neutrophils (%) (Auto) 64 % (31-73) Lymphocytes (%) (Auto) 18 % (24-48) L Monocytes (%) (Auto) 15 % (0-9) H Eosinophils (%) (Auto) 3 % (0-3) Basophils (%) (Auto) 0 % (0-3) Neutrophils # (Auto) 3.3 x10^3uL (1.8-7.7) Lymphocytes # (Auto) 0.9 x10^3/uL (1.0-4.8) L Monocytes # (Auto) 0.7 x10^3/uL (0.0-1.1) Eosinophils # (Auto) 0.2 x10^3/uL (0.0-0.7) Basophils # (Auto) 0.0 x10^3/uL (0.0-0.2) Sodium Level 141 mmol/L (136-145) Potassium Level 4.4 mmol/L (3.5-5.1) Chloride Level 104 mmol/L (98-107) Carbon Dioxide Level 29 mmol/L (21-32) Anion Gap 8 (6-14) Blood Urea Nitrogen 18 mg/dL (8-26) Creatinine 1.1 mg/dL (0.7-1.3) Estimated GFR (Cockcroft-Gault) 79.4 BUN/Creatinine Ratio 16 (6-20) Glucose Level 145 mg/dL (70-99) H Calcium Level 8.8 mg/dL (8.5-10.1) Total Bilirubin 0.3 mg/dL (0.2-1.0) Aspartate Amino Transferase (AST) 15 U/L (15-37) Alanine Aminotransferase (ALT) 18 U/L (16-63) Alkaline Phosphatase 57 U/L (46-116) Total Protein 7.1 g/dL (6.4-8.2) Albumin 3.0 g/dL (3.4-5.0) L Albumin/Globulin Ratio 0.7 (1.0-1.7) L Valproic Acid Level 16 mcg/mL (50-100) L Valproic Acid Last Dose Date 05/15/19 Valproic Acid Last Dose Time 1700 Test 05/16/19 19:32 Glucose (Fingerstick) 155 mg/dL (70-99) H Current Medications: Meds: Current Medications Medications (Trade) Dose Ordered Sig/Samaria Route PRN Reason Start Time Stop Time Status Last Admin Dose Admin Insulin Human Lispro (HumaLOG) 4 units TIDWMEALS SQ 05/16/19 08:00 05/16/19 17:00 I have reviewed the current psychotropics carefully including drug interactions. Risk benefit ratio favors no change other than as noted in my dictated progress note. Diagnosis: Problems: (1) Anxiety disorder (2) Dementia in Alzheimer's disease with delusions (3) Dementia in Alzheimer's disease with depression (4) Dementia, vascular, with delusions (5) Dementia, vascular, with depression (6) Impulse control disorder ABIGAIL HORNE MD May 16, 2019 20:47
[2019-05-16] MEDS: FAMOTIDINE 20 MG TABLET PO SCH (21:53)
[2019-05-16] MEDS: ATORVASTATIN CALCIUM 10 MG TABLET. PO SCH (21:53)
[2019-05-16] MEDS: QUEtiapine 100 MG TABLET. PO SCH (21:53)
[2019-05-16] MEDS: INSULIN GLARGINE SYRINGE. SQ SCH (21:57)
[2019-05-16] MEDS: PRAZOSIN 1 MG CAPSULE. PO SCH (21:58)
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
--- NOTE | 2019-05-17 00:51 | PN ---
DATE: 05/15/2019 PSYCHIATRIC PROGRESS NOTE This late entry 05/15/2019 covers the elements not covered in my initial note. SUBJECTIVE: I met with the patient in the evening of 05/15/2019. The patient slept 6 hours previous night. He was somewhat sexually inappropriate with nursing staff, winking at staff, compliant with medications. Blood sugar was 39, later 85. We will check CBC, CMP, valproic acid level 15. REVIEW OF SYSTEMS: No CV, , pulmonary, eye, ENT system symptoms on review. Reliability poor. MENTAL STATUS EXAM: Oriented to himself. Insight, judgment, recent and remote memory, attention, concentration, fund of knowledge poor, consistent with his diagnosis mentioned in my initial note. PLAN: No change from initial note. MAN Louie HORNE MD DR: MINOO/parul JOB#: [id number] / [id number]
[2019-05-17 06:00] VITALS: BP 149/71
[2019-05-17] MEDS: FLUTICASONE 50MCG/NASAL SPRAY 16GM BOTTLE. NS SCH (08:17)
[2019-05-17] MEDS: metFORMIN XR 500 MG TAB.ER.24H PO SCH ×2 (08:18→17:27)
[2019-05-17] MEDS: CHOLECALCIFEROL (VITAMIN D3) 1,000 UNIT TABLET PO SCH (08:19)
[2019-05-17] MEDS: MAGNESIUM OXIDE 400 MG TABLET PO SCH ×3 (08:19→20:59)
[2019-05-17] MEDS: LISINOPRIL 10 MG TABLET PO SCH (08:19)
[2019-05-17] MEDS: ACETAMINOPHEN 500 MG TABLET PO SCH ×2 (08:20→20:59)
[2019-05-17] MEDS: CYANOCOBALAMIN (VITAMIN B-12) 1,000 MCG TABLET. PO SCH (08:20)
[2019-05-17] MEDS: DIVALPROEX 125 MG CAP.SPRINK PO SCH ×2 (08:20→17:26)
[2019-05-17] MEDS: POTASSIUM CHLORIDE 20 MEQ TABLET.ER. PO SCH (08:20)
[2019-05-17] MEDS: ASPIRIN 81 MG TAB.CHEW PO SCH (08:21)
[2019-05-17] MEDS: FOLIC ACID 1 MG TABLET PO SCH (08:21)
[2019-05-17] MEDS: QUEtiapine 25 MG TABLET. PO SCH (08:21)
[2019-05-17] MEDS: SERTRALINE 100 MG TABLET. PO SCH (08:21)
[2019-05-17] MEDS: MULTIVITAMIN with MINERAL TABLET. PO SCH (08:21)
[2019-05-17] MEDS: INSULIN GLARGINE SYRINGE. SQ SCH (08:26)
[2019-05-17] MEDS: INSULIN LISPRO 300 UNITS/3 ML VIAL. SQ SCH ×3 (08:32→17:29)
[2019-05-17] MEDS: QUEtiapine 50 MG TABLET. PO SCH (15:08)
[2019-05-17 15:55] VITALS: BP 158/88
--- NOTE | 2019-05-17 20:50 | PDOC ---
Exam Note: Hamlet Note: Please also refer to the separate dictated note~for this date of service dictated separately.~Patient seen individually. Discussed the patient with Nursing staff reviewed the chart.~Reviewed interim history and current functioning. Reviewed vital signs,~Labs/ Radiology~and current medications noted below. Continue current treatment with the changes noted in the dictated addendum note Assessment: Vital Signs/I&O: Vital Signs Date Time Temp Pulse Resp B/P (MAP) Pulse Ox O2 Delivery O2 Flow Rate FiO2 05/17/19 15:55 97.2 93 16 158/88 (111) 100 05/15/19 16:42 Room Air I & O 05/16/19 05/16/19 05/17/19 15:00 23:00 07:00 Intake Total 480 ml 360 ml 240 ml Balance 480 ml 360 ml 240 ml Labs: Laboratory Tests Test 05/17/19 01:15 05/17/19 07:31 05/17/19 11:50 05/17/19 16:59 Glucose (Fingerstick) 161 mg/dL (70-99) H 136 mg/dL (70-99) H 111 mg/dL (70-99) H 147 mg/dL (70-99) H Test 05/17/19 19:18 Glucose (Fingerstick) 146 mg/dL (70-99) H Current Medications: Meds: Current Medications Medications (Trade) Dose Ordered Sig/Samaria Route PRN Reason Start Time Stop Time Status Last Admin Dose Admin Prazosin HCl (Minipress) 2 mg HS PO 05/16/19 21:00 05/16/19 21:58 I have reviewed the current psychotropics carefully including drug interactions. Risk benefit ratio favors no change other than as noted in my dictated progress note. Diagnosis: Problems: (1) Anxiety disorder (2) Dementia in Alzheimer's disease with delusions (3) Dementia in Alzheimer's disease with depression (4) Dementia, vascular, with delusions (5) Dementia, vascular, with depression (6) Impulse control disorder ABIGALI HORNE MD May 17, 2019 20:50
[2019-05-17] MEDS: ATORVASTATIN CALCIUM 10 MG TABLET. PO SCH (20:59)
[2019-05-17] MEDS: FAMOTIDINE 20 MG TABLET PO SCH (20:59)
[2019-05-17] MEDS: PRAZOSIN 1 MG CAPSULE. PO SCH (20:59)
[2019-05-17] MEDS: QUEtiapine 100 MG TABLET. PO SCH (20:59)
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
[2019-05-18 05:55] VITALS: BP 144/79
[2019-05-18] MEDS: INSULIN LISPRO 300 UNITS/3 ML VIAL. SQ SCH ×3 (08:00→17:00)
[2019-05-18] MEDS: metFORMIN XR 500 MG TAB.ER.24H PO SCH ×2 (09:02→18:03)
[2019-05-18] MEDS: MULTIVITAMIN with MINERAL TABLET. PO SCH (09:03)
[2019-05-18] MEDS: ACETAMINOPHEN 500 MG TABLET PO SCH ×2 (09:03→19:45)
[2019-05-18] MEDS: CHOLECALCIFEROL (VITAMIN D3) 1,000 UNIT TABLET PO SCH (09:03)
[2019-05-18] MEDS: MAGNESIUM OXIDE 400 MG TABLET PO SCH ×3 (09:03→19:45)
[2019-05-18] MEDS: FOLIC ACID 1 MG TABLET PO SCH (09:04)
[2019-05-18] MEDS: SERTRALINE 100 MG TABLET. PO SCH (09:04)
[2019-05-18] MEDS: CYANOCOBALAMIN (VITAMIN B-12) 1,000 MCG TABLET. PO SCH (09:04)
[2019-05-18] MEDS: ASPIRIN 81 MG TAB.CHEW PO SCH (09:05)
[2019-05-18] MEDS: LISINOPRIL 10 MG TABLET PO SCH (09:05)
[2019-05-18] MEDS: POTASSIUM CHLORIDE 20 MEQ TABLET.ER. PO SCH (09:05)
[2019-05-18] MEDS: DIVALPROEX 125 MG CAP.SPRINK PO SCH ×2 (09:05→18:03)
[2019-05-18] MEDS: QUEtiapine 25 MG TABLET. PO SCH (09:06)
[2019-05-18] MEDS: FLUTICASONE 50MCG/NASAL SPRAY 16GM BOTTLE. NS SCH (09:06)
[2019-05-18] MEDS: QUEtiapine 50 MG TABLET. PO SCH (12:41)
[2019-05-18 15:38] VITALS: BP 134/83
[2019-05-18] MEDS: FAMOTIDINE 20 MG TABLET PO SCH (19:45)
[2019-05-18] MEDS: QUEtiapine 100 MG TABLET. PO SCH (19:45)
[2019-05-18] MEDS: ATORVASTATIN CALCIUM 10 MG TABLET. PO SCH (19:46)
[2019-05-18] MEDS: PRAZOSIN 1 MG CAPSULE. PO SCH (19:46)
[2019-05-18] MEDS: INSULIN GLARGINE SYRINGE. SQ SCH (19:50)
--- NOTE | 2019-05-18 21:13 | PDOC ---
Exam Note: Hamlet Note: Please also refer to the separate dictated note~for this date of service dictated separately.~Patient seen individually. Discussed the patient with Nursing staff reviewed the chart.~Reviewed interim history and current functioning. Reviewed vital signs,~Labs/ Radiology~and current medications noted below. Continue current treatment with the changes noted in the dictated addendum note Assessment: Vital Signs/I&O: Vital Signs Date Time Temp Pulse Resp B/P (MAP) Pulse Ox O2 Delivery O2 Flow Rate FiO2 05/18/19 19:46 93 134/83 05/18/19 15:38 97.9 18 98 05/15/19 16:42 Room Air I & O 05/17/19 05/17/19 05/18/19 15:00 23:00 07:00 Intake Total 480 ml 360 ml Balance 480 ml 360 ml Labs: Laboratory Tests Test 05/18/19 00:28 05/18/19 01:58 05/18/19 05:30 05/18/19 07:30 Glucose (Fingerstick) 65 mg/dL (70-99) L 112 mg/dL (70-99) H 128 mg/dL (70-99) H 107 mg/dL (70-99) H Test 05/18/19 11:57 05/18/19 16:54 05/18/19 19:13 Glucose (Fingerstick) 223 mg/dL (70-99) H 81 mg/dL (70-99) 105 mg/dL (70-99) H Current Medications: I have reviewed the current psychotropics carefully including drug interactions. Risk benefit ratio favors no change other than as noted in my dictated progress note. Diagnosis: Problems: (1) Anxiety disorder (2) Dementia in Alzheimer's disease with delusions (3) Dementia in Alzheimer's disease with depression (4) Dementia, vascular, with delusions (5) Dementia, vascular, with depression (6) Impulse control disorder ABIGAIL HORNE MD May 18, 2019 21:13
--- NOTE | 2019-05-18 22:33 | PN ---
DATE: 05/17/2019 PSYCHIATRIC PROGRESS NOTE This late entry 05/17/2019 covers elements not covered in my initial note. SUBJECTIVE: I met with the patient evening of 05/17/2019. Per GREGORY Jonas, the patient slept 6 hours previous night. He apparently had a "great day" per nursing staff, he has been confused, but more redirectable, not aggressive. Valproic acid level on 05/16/2015, subtherapeutic. AST, ALT unremarkable. Hemoglobin and hematocrit is low, will defer to Dr. Garcia. REVIEW OF SYSTEMS: No CV, , pulmonary, eye, ENT system symptoms on review. Reliability poor. MENTAL STATUS EXAM: Oriented to himself. Insight, judgment, recent and remote memory, attention, concentration, fund of knowledge poor, consistent with his diagnosis mentioned in my initial note. PLAN: No change from initial note. MAN Louie HORNE MD DR: MINOO/parul JOB#: [id number] / [id number]
[2019-05-19 06:05] VITALS: BP 123/72
[2019-05-19] MEDS: metFORMIN XR 500 MG TAB.ER.24H PO SCH ×2 (08:13→16:17)
[2019-05-19] MEDS: FLUTICASONE 50MCG/NASAL SPRAY 16GM BOTTLE. NS SCH (08:19)
[2019-05-19] MEDS: INSULIN LISPRO 300 UNITS/3 ML VIAL. SQ SCH ×3 (08:19→17:30)
[2019-05-19] MEDS: ASPIRIN 81 MG TAB.CHEW PO SCH (08:20)
[2019-05-19] MEDS: MAGNESIUM OXIDE 400 MG TABLET PO SCH ×3 (08:21→19:58)
[2019-05-19] MEDS: POTASSIUM CHLORIDE 20 MEQ TABLET.ER. PO SCH (08:21)
[2019-05-19] MEDS: DIVALPROEX 125 MG CAP.SPRINK PO SCH ×2 (08:21→16:17)
[2019-05-19] MEDS: QUEtiapine 25 MG TABLET. PO SCH (08:21)
[2019-05-19] MEDS: LISINOPRIL 10 MG TABLET PO SCH (08:21)
[2019-05-19] MEDS: FOLIC ACID 1 MG TABLET PO SCH (08:21)
[2019-05-19] MEDS: CHOLECALCIFEROL (VITAMIN D3) 1,000 UNIT TABLET PO SCH (08:22)
[2019-05-19] MEDS: MULTIVITAMIN with MINERAL TABLET. PO SCH (08:22)
[2019-05-19] MEDS: ACETAMINOPHEN 500 MG TABLET PO SCH ×2 (08:22→19:58)
[2019-05-19] MEDS: CYANOCOBALAMIN (VITAMIN B-12) 1,000 MCG TABLET. PO SCH (08:22)
[2019-05-19] MEDS: SERTRALINE 100 MG TABLET. PO SCH (08:22)
[2019-05-19] MEDS: QUEtiapine 50 MG TABLET. PO SCH (13:12)
[2019-05-19 15:52] VITALS: BP 164/89
[2019-05-19] MEDS: FAMOTIDINE 20 MG TABLET PO SCH (19:58)
[2019-05-19] MEDS: ATORVASTATIN CALCIUM 10 MG TABLET. PO SCH (19:58)
[2019-05-19] MEDS: PRAZOSIN 1 MG CAPSULE. PO SCH (19:59)
[2019-05-19] MEDS: QUEtiapine 100 MG TABLET. PO SCH (19:59)
[2019-05-19] MEDS: INSULIN GLARGINE SYRINGE. SQ SCH (20:03)
--- NOTE | 2019-05-19 21:01 | PDOC ---
Exam Note: Hamlet Note: Please also refer to the separate dictated note~for this date of service dictated separately.~Patient seen individually. Discussed the patient with Nursing staff reviewed the chart.~Reviewed interim history and current functioning. Reviewed vital signs,~Labs/ Radiology~and current medications noted below. Continue current treatment with the changes noted in the dictated addendum note Assessment: Vital Signs/I&O: Vital Signs Date Time Temp Pulse Resp B/P (MAP) Pulse Ox O2 Delivery O2 Flow Rate FiO2 05/19/19 19:59 83 164/89 05/19/19 15:52 98.5 18 98 Room Air I & O 05/18/19 05/18/19 05/19/19 15:00 23:00 07:00 Intake Total 960 ml 240 ml 120 ml Balance 960 ml 240 ml 120 ml Labs: Laboratory Tests Test 05/19/19 07:54 05/19/19 11:53 05/19/19 12:57 05/19/19 17:09 Glucose (Fingerstick) 124 mg/dL (70-99) H 59 mg/dL (70-99) L 90 mg/dL (70-99) 162 mg/dL (70-99) H Test 05/19/19 19:12 Glucose (Fingerstick) 117 mg/dL (70-99) H Current Medications: I have reviewed the current psychotropics carefully including drug interactions. Risk benefit ratio favors no change other than as noted in my dictated progress note. Diagnosis: Problems: (1) Anxiety disorder (2) Dementia in Alzheimer's disease with delusions (3) Dementia in Alzheimer's disease with depression (4) Dementia, vascular, with delusions (5) Dementia, vascular, with depression (6) Impulse control disorder ABIGAIL HORNE MD May 19, 2019 21:01
--- NOTE | 2019-05-20 03:10 | PN ---
DATE: 05/18/2019 PSYCHIATRIC PROGRESS NOTE This late entry 05/18/2019 covers elements not covered in my initial note. SUBJECTIVE: I met with the patient evening of 05/18/2019. Per report from nursing staff, the patient remains confused, anxious, restless at times, less agitated. REVIEW OF SYSTEMS: No CV, , pulmonary, eye system symptoms on review. Reliability poor. He has not been sexually inappropriate. MENTAL STATUS EXAM: Oriented to himself. Insight, judgment, recent and remote memory, attention, concentration, fund of knowledge poor, consistent with his diagnosis mentioned in my initial note. PLAN: No change from initial note. MAN Louie HORNE MD DR: MINOO/parul JOB#: [id number] / [id number]
[2019-05-20 05:56] VITALS: BP 164/83
[2019-05-20] MEDS: ASPIRIN 81 MG TAB.CHEW PO SCH (08:19)
[2019-05-20] MEDS: FOLIC ACID 1 MG TABLET PO SCH (08:19)
[2019-05-20] MEDS: MULTIVITAMIN with MINERAL TABLET. PO SCH (08:20)
[2019-05-20] MEDS: QUEtiapine 25 MG TABLET. PO SCH (08:20)
[2019-05-20] MEDS: SERTRALINE 100 MG TABLET. PO SCH (08:21)
[2019-05-20] MEDS: DIVALPROEX 125 MG CAP.SPRINK PO SCH ×2 (08:21→17:16)
[2019-05-20] MEDS: LISINOPRIL 10 MG TABLET PO SCH (08:21)
[2019-05-20] MEDS: metFORMIN XR 500 MG TAB.ER.24H PO SCH ×2 (08:21→17:17)
[2019-05-20] MEDS: CHOLECALCIFEROL (VITAMIN D3) 1,000 UNIT TABLET PO SCH (08:21)
[2019-05-20] MEDS: ACETAMINOPHEN 500 MG TABLET PO SCH ×2 (08:22→19:57)
[2019-05-20] MEDS: CYANOCOBALAMIN (VITAMIN B-12) 1,000 MCG TABLET. PO SCH (08:22)
[2019-05-20] MEDS: MAGNESIUM OXIDE 400 MG TABLET PO SCH ×3 (08:22→19:49)
[2019-05-20] MEDS: POTASSIUM CHLORIDE 20 MEQ TABLET.ER. PO SCH (08:22)
[2019-05-20] MEDS: FLUTICASONE 50MCG/NASAL SPRAY 16GM BOTTLE. NS SCH (08:22)
[2019-05-20] MEDS: INSULIN LISPRO 300 UNITS/3 ML VIAL. SQ SCH ×3 (08:29→17:19)
[2019-05-20] MEDS: QUEtiapine 50 MG TABLET. PO SCH (13:24)
[2019-05-20 15:39] VITALS: BP 113/71
[2019-05-20] MEDS: FAMOTIDINE 20 MG TABLET PO SCH (19:49)
[2019-05-20] MEDS: QUEtiapine 100 MG TABLET. PO SCH (19:50)
[2019-05-20] MEDS: ATORVASTATIN CALCIUM 10 MG TABLET. PO SCH (19:50)
[2019-05-20] MEDS: PRAZOSIN 1 MG CAPSULE. PO SCH (19:50)
[2019-05-20] MEDS: INSULIN GLARGINE SYRINGE. SQ SCH (19:52)
--- NOTE | 2019-05-20 21:07 | PDOC ---
Exam Note: Hamlet Note: Please also refer to the separate dictated note~for this date of service dictated separately.~Patient seen individually. Discussed the patient with Nursing staff reviewed the chart.~Reviewed interim history and current functioning. Reviewed vital signs,~Labs/ Radiology~and current medications noted below. Continue current treatment with the changes noted in the dictated addendum note Assessment: Vital Signs/I&O: Vital Signs Date Time Temp Pulse Resp B/P (MAP) Pulse Ox O2 Delivery O2 Flow Rate FiO2 05/20/19 19:50 96 113/71 05/20/19 15:39 97.5 19 99 Room Air I & O 05/19/19 05/19/19 05/20/19 15:00 23:00 07:00 Intake Total 720 ml 360 ml Balance 720 ml 360 ml Labs: Laboratory Tests Test 05/20/19 07:44 05/20/19 12:16 05/20/19 16:34 05/20/19 19:09 Glucose (Fingerstick) 69 mg/dL (70-99) L 127 mg/dL (70-99) H 73 mg/dL (70-99) 54 mg/dL (70-99) L Test 05/20/19 19:52 Glucose (Fingerstick) 56 mg/dL (70-99) L Current Medications: Meds: Current Medications Medications (Trade) Dose Ordered Sig/Samaria Route PRN Reason Start Time Stop Time Status Last Admin Dose Admin Divalproex Sodium (Depakote Sprinkles) 250 mg 0900,1700 PO 05/20/19 09:00 05/20/19 17:16 I have reviewed the current psychotropics carefully including drug interactions. Risk benefit ratio favors no change other than as noted in my dictated progress note. Diagnosis: Problems: (1) Anxiety disorder (2) Dementia in Alzheimer's disease with delusions (3) Dementia in Alzheimer's disease with depression (4) Dementia, vascular, with delusions (5) Dementia, vascular, with depression (6) Impulse control disorder ABIGAIL HORNE MD May 20, 2019 21:07
[2019-05-21 06:02] VITALS: BP 158/81
[2019-05-21] MEDS: QUEtiapine 25 MG TABLET. PO SCH (08:22)
[2019-05-21] MEDS: CHOLECALCIFEROL (VITAMIN D3) 1,000 UNIT TABLET PO SCH (08:22)
[2019-05-21] MEDS: DIVALPROEX 125 MG CAP.SPRINK PO SCH ×2 (08:23→17:34)
[2019-05-21] MEDS: LISINOPRIL 10 MG TABLET PO SCH (08:23)
[2019-05-21] MEDS: POTASSIUM CHLORIDE 20 MEQ TABLET.ER. PO SCH (08:23)
[2019-05-21] MEDS: MAGNESIUM OXIDE 400 MG TABLET PO SCH ×3 (08:24→20:56)
[2019-05-21] MEDS: metFORMIN XR 500 MG TAB.ER.24H PO SCH ×2 (08:24→17:34)
[2019-05-21] MEDS: ACETAMINOPHEN 500 MG TABLET PO SCH ×2 (08:24→20:55)
[2019-05-21] MEDS: MULTIVITAMIN with MINERAL TABLET. PO SCH (08:24)
[2019-05-21] MEDS: ASPIRIN 81 MG TAB.CHEW PO SCH (08:24)
[2019-05-21] MEDS: CYANOCOBALAMIN (VITAMIN B-12) 1,000 MCG TABLET. PO SCH (08:24)
[2019-05-21] MEDS: SERTRALINE 100 MG TABLET. PO SCH (08:24)
[2019-05-21] MEDS: FLUTICASONE 50MCG/NASAL SPRAY 16GM BOTTLE. NS SCH (08:25)
[2019-05-21] MEDS: FOLIC ACID 1 MG TABLET PO SCH (08:25)
[2019-05-21] MEDS: INSULIN LISPRO 300 UNITS/3 ML VIAL. SQ SCH ×3 (08:35→17:00)
[2019-05-21] MEDS: QUEtiapine 50 MG TABLET. PO SCH (14:00)
[2019-05-21 15:49] VITALS: BP 127/86
[2019-05-21] MEDS: ATORVASTATIN CALCIUM 10 MG TABLET. PO SCH (20:56)
[2019-05-21] MEDS: FAMOTIDINE 20 MG TABLET PO SCH (20:56)
[2019-05-21] MEDS: PRAZOSIN 1 MG CAPSULE. PO SCH (20:57)
[2019-05-21] MEDS: QUEtiapine 100 MG TABLET. PO SCH (20:57)
[2019-05-21] MEDS: INSULIN GLARGINE SYRINGE. SQ SCH (20:58)
--- NOTE | 2019-05-21 21:09 | PDOC ---
Exam Note: Hamlet Note: Please also refer to the separate dictated note~for this date of service dictated separately.~Patient seen individually. Discussed the patient with Nursing staff reviewed the chart.~Reviewed interim history and current functioning. Reviewed vital signs,~Labs/ Radiology~and current medications noted below. Continue current treatment with the changes noted in the dictated addendum note Assessment: Vital Signs/I&O: Vital Signs Date Time Temp Pulse Resp B/P (MAP) Pulse Ox O2 Delivery O2 Flow Rate FiO2 05/21/19 20:57 89 127/86 05/21/19 15:49 98.0 18 99 05/20/19 15:39 Room Air I & O 05/20/19 05/20/19 05/21/19 15:00 23:00 07:00 Intake Total 960 ml 360 ml Balance 960 ml 360 ml Labs: Laboratory Tests Test 05/20/19 21:19 05/21/19 07:42 05/21/19 11:40 05/21/19 17:06 Glucose (Fingerstick) 77 mg/dL (70-99) 86 mg/dL (70-99) 103 mg/dL (70-99) H 44 mg/dL (70-99) L Test 05/21/19 17:08 05/21/19 19:21 Glucose (Fingerstick) 60 mg/dL (70-99) L 189 mg/dL (70-99) H Current Medications: Meds: Current Medications Medications (Trade) Dose Ordered Sig/Samaria Route PRN Reason Start Time Stop Time Status Last Admin Dose Admin Insulin Glargine (Lantus Syringe) 6 unit QHS SQ 05/21/19 21:00 05/21/19 20:58 I have reviewed the current psychotropics carefully including drug interactions. Risk benefit ratio favors no change other than as noted in my dictated progress note. Diagnosis: Problems: (1) Anxiety disorder (2) Dementia in Alzheimer's disease with delusions (3) Dementia in Alzheimer's disease with depression (4) Dementia, vascular, with delusions (5) Dementia, vascular, with depression (6) Impulse control disorder ABIGAIL HORNE MD May 21, 2019 21:09
--- NOTE | 2019-05-21 22:46 | PN ---
DATE: 05/19/2019 PSYCHIATRIC PROGRESS NOTE This late entry 05/19/2019 covers the elements not covered in my initial note. SUBJECTIVE: I met with the patient in the evening of 05/19/2019. Per GREGORY Thomson, the patient slept 6-1/4 hours previous night. He did well the previous night and during the day on 05/19/2019, laughing, joking, is a little anxious, restless at times, received Zyprexa Zydis x 2. He got agitated at one of the other demented patient and used profanity "I'm not going to [place] for __ M ----F---- R-----". This is per nursing report. REVIEW OF SYSTEMS: No CV, , pulmonary, eye, ENT system symptoms on review. Reliability is poor. MENTAL STATUS EXAM: Oriented to himself. Insight, judgment, recent and remote memory, attention, concentration, fund of knowledge poor, consistent with his diagnosis. IMPRESSION: Major neurocognitive disorder, Alzheimer, vascular with delusion, depression, behavioral disturbance; anxiety disorder, unspecified; impulse control disorder, unspecified; post-traumatic stress disorder. Rest unchanged. PLAN: Valproic acid level subtherapeutic at 16 on Depakote Sprinkles 125 mg twice a day, increase to 250 twice a day. Continue Minipress 2 mg a day, may need to increase this further. Maintain Zoloft, Seroquel. Rest unchanged for now. ABIGAIL HORNE MD DR: MINOO/parul JOB#: [id number] / [id number]
--- NOTE | 2019-05-22 02:05 | PN ---
DATE: 05/20/2019 PSYCHIATRIC PROGRESS NOTE This late entry 05/20/2019 covers elements not covered in my initial note. SUBJECTIVE: I met with the patient in the evening of 05/20/2019 and staffed at a treatment team meeting earlier in the day. The patient is sleeping about 6-1/2 hours average. Appetite 100%, calm, cooperative, disorganized. Received Zyprexa twice on 05/19/2019, none on 05/20/2019. He may be accepted at the [facility] on in [facility]. Labs are to be done on the since we adjusted the Depakote. REVIEW OF SYSTEMS: No CV, , pulmonary, eye, ENT system symptoms on review. Reliability poor. MENTAL STATUS EXAM: Oriented to himself. Insight, judgment, recent and remote memory, attention, concentration, fund of knowledge poor, consistent with his diagnosis. IMPRESSION: Major neurocognitive disorder, Alzheimer, vascular with delusion, depression, behavioral disturbance; anxiety disorder, unspecified; impulse control disorder, unspecified; post-traumatic stress disorder. Rest unchanged. PLAN: Continue psychotropics from initial note. Check labs level on the Depakote on 05/23/2019. Adjust further to reach therapeutic level. Rest unchanged for now. ABIGAIL HORNE MD DR: MINOO/parul JOB#: [id number] / [id number]
[2019-05-22 05:24] VITALS: BP 161/83
[2019-05-22] MEDS: metFORMIN XR 500 MG TAB.ER.24H PO SCH ×2 (08:16→17:18)
[2019-05-22] MEDS: INSULIN LISPRO 300 UNITS/3 ML VIAL. SQ SCH ×3 (08:18→17:19)
[2019-05-22] MEDS: FLUTICASONE 50MCG/NASAL SPRAY 16GM BOTTLE. NS SCH (08:18)
[2019-05-22] MEDS: ASPIRIN 81 MG TAB.CHEW PO SCH (08:19)
[2019-05-22] MEDS: POTASSIUM CHLORIDE 20 MEQ TABLET.ER. PO SCH (08:19)
[2019-05-22] MEDS: DIVALPROEX 125 MG CAP.SPRINK PO SCH ×2 (08:19→17:18)
[2019-05-22] MEDS: FOLIC ACID 1 MG TABLET PO SCH (08:19)
[2019-05-22] MEDS: MAGNESIUM OXIDE 400 MG TABLET PO SCH ×3 (08:20→21:18)
[2019-05-22] MEDS: MULTIVITAMIN with MINERAL TABLET. PO SCH (08:20)
[2019-05-22] MEDS: LISINOPRIL 10 MG TABLET PO SCH (08:20)
[2019-05-22] MEDS: QUEtiapine 25 MG TABLET. PO SCH (08:20)
[2019-05-22] MEDS: ACETAMINOPHEN 500 MG TABLET PO SCH ×2 (08:20→21:17)
[2019-05-22] MEDS: CYANOCOBALAMIN (VITAMIN B-12) 1,000 MCG TABLET. PO SCH (08:21)
[2019-05-22] MEDS: SERTRALINE 100 MG TABLET. PO SCH (08:21)
[2019-05-22] MEDS: CHOLECALCIFEROL (VITAMIN D3) 1,000 UNIT TABLET PO SCH (08:21)
[2019-05-22] MEDS: QUEtiapine 50 MG TABLET. PO SCH (13:29)
[2019-05-22 16:10] VITALS: BP 121/71
[2019-05-22] MEDS: FAMOTIDINE 20 MG TABLET PO SCH (21:17)
[2019-05-22] MEDS: QUEtiapine 100 MG TABLET. PO SCH (21:18)
[2019-05-22] MEDS: PRAZOSIN 1 MG CAPSULE. PO SCH (21:18)
[2019-05-22] MEDS: ATORVASTATIN CALCIUM 10 MG TABLET. PO SCH (21:18)
[2019-05-22] MEDS: INSULIN GLARGINE SYRINGE. SQ SCH (21:26)
--- NOTE | 2019-05-22 21:46 | PDOC ---
Exam Note: Hamlet Note: Please also refer to the separate dictated note~for this date of service dictated separately.~Patient seen individually. Discussed the patient with Nursing staff reviewed the chart.~Reviewed interim history and current functioning. Reviewed vital signs,~Labs/ Radiology~and current medications noted below. Continue current treatment with the changes noted in the dictated addendum note Assessment: Vital Signs/I&O: Vital Signs Date Time Temp Pulse Resp B/P (MAP) Pulse Ox O2 Delivery O2 Flow Rate FiO2 05/22/19 21:18 68 121/71 05/22/19 16:10 97.8 18 96 05/20/19 15:39 Room Air I & O 05/21/19 05/21/19 05/22/19 15:00 23:00 07:00 Intake Total 960 ml 720 ml Balance 960 ml 720 ml Labs: Laboratory Tests Test 05/22/19 07:41 05/22/19 11:50 05/22/19 17:13 05/22/19 19:17 Glucose (Fingerstick) 123 mg/dL (70-99) H 112 mg/dL (70-99) H 87 mg/dL (70-99) 128 mg/dL (70-99) H Current Medications: Meds: Current Medications Medications (Trade) Dose Ordered Sig/Samaria Route PRN Reason Start Time Stop Time Status Last Admin Dose Admin Insulin Human Lispro (HumaLOG) 3 units TIDWMEALS SQ 05/22/19 08:00 05/22/19 12:31 I have reviewed the current psychotropics carefully including drug interactions. Risk benefit ratio favors no change other than as noted in my dictated progress note. Diagnosis: Problems: (1) Anxiety disorder (2) Dementia in Alzheimer's disease with delusions (3) Dementia in Alzheimer's disease with depression (4) Dementia, vascular, with delusions (5) Dementia, vascular, with depression (6) Impulse control disorder ABIGAIL HORNE MD May 22, 2019 21:45
[2019-05-23 06:59] VITALS: BP 138/88
[2019-05-23] MEDS: FLUTICASONE 50MCG/NASAL SPRAY 16GM BOTTLE. NS SCH (08:17)
[2019-05-23] MEDS: INSULIN LISPRO 300 UNITS/3 ML VIAL. SQ SCH ×3 (08:17→17:21)
[2019-05-23] MEDS: ASPIRIN 81 MG TAB.CHEW PO SCH (08:17)
[2019-05-23] MEDS: metFORMIN XR 500 MG TAB.ER.24H PO SCH ×2 (08:17→17:21)
[2019-05-23] MEDS: POTASSIUM CHLORIDE 20 MEQ TABLET.ER. PO SCH (08:18)
[2019-05-23] MEDS: LISINOPRIL 10 MG TABLET PO SCH (08:18)
[2019-05-23] MEDS: MAGNESIUM OXIDE 400 MG TABLET PO SCH ×3 (08:18→20:01)
[2019-05-23] MEDS: DIVALPROEX 125 MG CAP.SPRINK PO SCH ×2 (08:18→17:21)
[2019-05-23] MEDS: FOLIC ACID 1 MG TABLET PO SCH (08:18)
[2019-05-23] MEDS: QUEtiapine 50 MG TABLET. PO SCH (08:19)
[2019-05-23] MEDS: MULTIVITAMIN with MINERAL TABLET. PO SCH (08:19)
[2019-05-23] MEDS: ACETAMINOPHEN 500 MG TABLET PO SCH ×2 (08:20→20:00)
[2019-05-23] MEDS: SERTRALINE 100 MG TABLET. PO SCH (08:20)
[2019-05-23] MEDS: CHOLECALCIFEROL (VITAMIN D3) 1,000 UNIT TABLET PO SCH (08:20)
[2019-05-23] MEDS: CYANOCOBALAMIN (VITAMIN B-12) 1,000 MCG TABLET. PO SCH (08:20)
[2019-05-23 10:31] LABS: BASO % 0 % (0-3); EOS # 0.1 x10^3/uL (0.0-0.7); EOS % 2 % (0-3); HEMATOCRIT 35.5 % (39.0-53.0); HEMOGLOBIN 11.6 g/dL (13.0-17.5); LYMPH # 1.3 x10^3/uL (1.0-4.8); LYMPH % 21 % (24-48); MEAN CORPUSCULAR HEMOGLOBIN 29 pg (25-35); MEAN CORPUSCULAR HGB CONC 33 g/dL (31-37); MEAN CORPUSCULAR VOLUME 87 fL (79-100); MONO # 0.5 x10^3/uL (0.0-1.1); MONO % 8 % (0-9); NEUT # 4.6 x10^3uL (1.8-7.7); NEUT % 69 % (31-73); PLATELET COUNT 219 x10^3/uL (140-400); RED BLOOD COUNT 4.09 x10^6/uL (4.30-5.70); RED CELL DISTRIBUTION WIDTH 14.5 % (11.5-14.5); WHITE BLOOD COUNT 6.6 x10^3/uL (4.0-11.0)
[2019-05-23 11:02] LABS: ALBUMIN 2.9 g/dL (3.4-5.0); ALBUMIN/GLOBULIN RATIO 0.7 (1.0-1.7); ALK PHOS 55 U/L (46-116); ALT (SGPT) 17 U/L (16-63); ANION GAP 3 (6-14); AST (SGOT) 15 U/L (15-37); BLOOD UREA NITROGEN 16 mg/dL (8-26); BUN/CREATININE RATIO 15 (6-20); CALCIUM 8.8 mg/dL (8.5-10.1); CARBON DIOXIDE 35 mmol/L (21-32); CHLORIDE 104 mmol/L (98-107); CREATININE 1.1 mg/dL (0.7-1.3); GFR 79.4; GLUCOSE 161 mg/dL (70-99); POTASSIUM 4.3 mmol/L (3.5-5.1); SODIUM 142 mmol/L (136-145); TOTAL BILIRUBIN 0.2 mg/dL (0.2-1.0); TOTAL PROTEIN 7.2 g/dL (6.4-8.2)
[2019-05-23 11:06] LABS: VAL ACID 31 mcg/mL (50-100)
[2019-05-23] MEDS: QUEtiapine 25 MG TABLET. PO SCH (13:37)
[2019-05-23 15:53] VITALS: BP 138/72
--- NOTE | 2019-05-23 16:10 | PN ---
DATE: 05/21/2019 PSYCHIATRIC PROGRESS NOTE This late entry 05/21/2019 covers elements not covered in my initial note. SUBJECTIVE: I met with the patient evening of 05/21/2019. Per Brian RN, the patient slept 7 hours previous night. He has made some inappropriate sexual comments to female nursing staff previous night and I addressed this with him. During the day on 05/21/2019, he has been fairly appropriate, was quite delusional previous night adamant that his paycheck was lying on the nursing station, but not aggressive. REVIEW OF SYSTEMS: No CV, , pulmonary, eye, ENT system symptoms on review. MENTAL STATUS EXAM: Oriented to himself. Insight, judgment, recent and remote memory, attention, concentration, fund of knowledge poor, consistent with his diagnosis mentioned in my initial note. PLAN: No change from initial note. MAN Louie HORNE MD DR: MINOO/parul JOB#: [id number] / [id number]
[2019-05-23] MEDS: PRAZOSIN 1 MG CAPSULE. PO SCH (20:00)
[2019-05-23] MEDS: ATORVASTATIN CALCIUM 10 MG TABLET. PO SCH (20:01)
[2019-05-23] MEDS: QUEtiapine 100 MG TABLET. PO SCH (20:01)
[2019-05-23] MEDS: FAMOTIDINE 20 MG TABLET PO SCH (20:01)
[2019-05-23] MEDS: INSULIN GLARGINE SYRINGE. SQ SCH (20:02)
--- NOTE | 2019-05-23 20:54 | PDOC ---
Exam Note: Hamlet Note: Please also refer to the separate dictated note~for this date of service dictated separately.~Patient seen individually. Discussed the patient with Nursing staff reviewed the chart.~Reviewed interim history and current functioning. Reviewed vital signs,~Labs/ Radiology~and current medications noted below. Continue current treatment with the changes noted in the dictated addendum note Assessment: Vital Signs/I&O: Vital Signs Date Time Temp Pulse Resp B/P (MAP) Pulse Ox O2 Delivery O2 Flow Rate FiO2 05/23/19 20:00 76 138/72 05/23/19 15:53 97.4 20 100 05/20/19 15:39 Room Air I & O 05/22/19 05/22/19 05/23/19 15:00 23:00 07:00 Intake Total 720 ml 480 ml Balance 720 ml 480 ml Labs: Laboratory Tests Test 05/23/19 00:59 05/23/19 07:41 05/23/19 10:05 05/23/19 11:38 Glucose (Fingerstick) 132 mg/dL (70-99) H 92 mg/dL (70-99) 160 mg/dL (70-99) H White Blood Count 6.6 x10^3/uL (4.0-11.0) Red Blood Count 4.09 x10^6/uL (4.30-5.70) L Hemoglobin 11.6 g/dL (13.0-17.5) L Hematocrit 35.5 % (39.0-53.0) L Mean Corpuscular Volume 87 fL (79-100) Mean Corpuscular Hemoglobin 29 pg (25-35) Mean Corpuscular Hemoglobin Concent 33 g/dL (31-37) Red Cell Distribution Width 14.5 % (11.5-14.5) Platelet Count 219 x10^3/uL (140-400) Neutrophils (%) (Auto) 69 % (31-73) Lymphocytes (%) (Auto) 21 % (24-48) L Monocytes (%) (Auto) 8 % (0-9) Eosinophils (%) (Auto) 2 % (0-3) Basophils (%) (Auto) 0 % (0-3) Neutrophils # (Auto) 4.6 x10^3uL (1.8-7.7) Lymphocytes # (Auto) 1.3 x10^3/uL (1.0-4.8) Monocytes # (Auto) 0.5 x10^3/uL (0.0-1.1) Eosinophils # (Auto) 0.1 x10^3/uL (0.0-0.7) Basophils # (Auto) 0.0 x10^3/uL (0.0-0.2) Sodium Level 142 mmol/L (136-145) Potassium Level 4.3 mmol/L (3.5-5.1) Chloride Level 104 mmol/L (98-107) Carbon Dioxide Level 35 mmol/L (21-32) H Anion Gap 3 (6-14) L Blood Urea Nitrogen 16 mg/dL (8-26) Creatinine 1.1 mg/dL (0.7-1.3) Estimated GFR (Cockcroft-Gault) 79.4 BUN/Creatinine Ratio 15 (6-20) Glucose Level 161 mg/dL (70-99) H Calcium Level 8.8 mg/dL (8.5-10.1) Total Bilirubin 0.2 mg/dL (0.2-1.0) Aspartate Amino Transferase (AST) 15 U/L (15-37) Alanine Aminotransferase (ALT) 17 U/L (16-63) Alkaline Phosphatase 55 U/L (46-116) Total Protein 7.2 g/dL (6.4-8.2) Albumin 2.9 g/dL (3.4-5.0) L Albumin/Globulin Ratio 0.7 (1.0-1.7) L Valproic Acid Level 31 mcg/mL (50-100) L Valproic Acid Last Dose Date 05/22/19 Valproic Acid Last Dose Time 1700 Test 05/23/19 17:03 05/23/19 19:09 Glucose (Fingerstick) 71 mg/dL (70-99) 171 mg/dL (70-99) H Current Medications: Meds: Current Medications Medications (Trade) Dose Ordered Sig/Samaria Route PRN Reason Start Time Stop Time Status Last Admin Dose Admin Quetiapine Fumarate (SEROquel) 25 mg DAILY@1400 PO 05/23/19 14:00 05/23/19 13:37 Quetiapine Fumarate (SEROquel) 50 mg DAILY PO 05/23/19 09:00 05/23/19 08:19 I have reviewed the current psychotropics carefully including drug interactions. Risk benefit ratio favors no change other than as noted in my dictated progress note. Diagnosis: Problems: (1) Anxiety disorder (2) Dementia in Alzheimer's disease with delusions (3) Dementia in Alzheimer's disease with depression (4) Dementia, vascular, with delusions (5) Dementia, vascular, with depression (6) Impulse control disorder ABIGAIL HORNE MD May 23, 2019 20:54
--- NOTE | 2019-05-23 21:52 | PN ---
DATE: 05/22/2019 PSYCHIATRIC PROGRESS NOTE. This late entry of 05/22/2019 covers the elements not covered in my initial note. SUBJECTIVE: I met with the patient in the evening. The patient slept 5-3/4 hours previous night. He remains confused, but no sexually inappropriate behaviors noted. He is compliant with medications. He has some trouble swallowing. Swallow study is being conducted and we will reduce the Seroquel slightly to see if this helps with the swallowing problems. He is currently on Seroquel 75 mg a.m., 50 mg at 1400, 200 mg at bedtime. We will reduce the morning Seroquel 75 mg down to 50 mg and the 50 mg at 1400 down to 25 mg, continue 200 mg at bedtime. REVIEW OF SYSTEMS: No CV, , pulmonary, eye, ENT system symptoms on review. Reliability poor. MENTAL STATUS EXAM: Oriented to himself. Insight, judgment, recent and remote memory, attention, concentration, fund of knowledge poor, consistent with his diagnosis. IMPRESSION: Major neurocognitive disorder, Alzheimer, vascular with delusion, depression, behavioral disturbance; anxiety disorder, unspecified; impulse control disorder, unspecified; post-traumatic stress disorder. Rest unchanged. PLAN: Change the Seroquel as noted above for reasons noted above, maintain Depakote along with Minipress 2 mg at bedtime, Zoloft 100 mg a day, Zyprexa p.r.n. Rest unchanged for now. Valproic acid level is subtherapeutic, but clinically adequate for now. ABIGAIL HORNE MD DR: MINOO/parul JOB#: [id number] / [id number]
[2019-05-24 06:01] VITALS: BP 146/78
[2019-05-24] MEDS: INSULIN LISPRO 300 UNITS/3 ML VIAL. SQ SCH ×4 (08:00→17:28)
[2019-05-24] MEDS: metFORMIN XR 500 MG TAB.ER.24H PO SCH ×2 (08:43→17:25)
[2019-05-24] MEDS: DIVALPROEX 125 MG CAP.SPRINK PO SCH ×2 (08:44→17:25)
[2019-05-24] MEDS: FOLIC ACID 1 MG TABLET PO SCH (08:44)
[2019-05-24] MEDS: MAGNESIUM OXIDE 400 MG TABLET PO SCH ×3 (08:44→19:53)
[2019-05-24] MEDS: ASPIRIN 81 MG TAB.CHEW PO SCH (08:44)
[2019-05-24] MEDS: POTASSIUM CHLORIDE 20 MEQ TABLET.ER. PO SCH (08:44)
[2019-05-24] MEDS: CHOLECALCIFEROL (VITAMIN D3) 1,000 UNIT TABLET PO SCH (08:45)
[2019-05-24] MEDS: MULTIVITAMIN with MINERAL TABLET. PO SCH (08:45)
[2019-05-24] MEDS: QUEtiapine 50 MG TABLET. PO SCH (08:45)
[2019-05-24] MEDS: ACETAMINOPHEN 500 MG TABLET PO SCH ×2 (08:45→19:53)
[2019-05-24] MEDS: LISINOPRIL 10 MG TABLET PO SCH (08:45)
[2019-05-24] MEDS: CYANOCOBALAMIN (VITAMIN B-12) 1,000 MCG TABLET. PO SCH (08:45)
[2019-05-24] MEDS: SERTRALINE 100 MG TABLET. PO SCH (08:46)
[2019-05-24] MEDS: FLUTICASONE 50MCG/NASAL SPRAY 16GM BOTTLE. NS SCH (09:00)
[2019-05-24] MEDS: QUEtiapine 25 MG TABLET. PO SCH (13:54)
[2019-05-24 15:56] VITALS: BP 151/79
[2019-05-24] MEDS: PRAZOSIN 1 MG CAPSULE. PO SCH (19:52)
[2019-05-24] MEDS: QUEtiapine 100 MG TABLET. PO SCH (19:53)
[2019-05-24] MEDS: FAMOTIDINE 20 MG TABLET PO SCH (19:53)
[2019-05-24] MEDS: ATORVASTATIN CALCIUM 10 MG TABLET. PO SCH (19:53)
[2019-05-24] MEDS: INSULIN GLARGINE SYRINGE. SQ SCH (19:56)
--- NOTE | 2019-05-24 21:15 | PDOC ---
Exam Note: Hamlet Note: Please also refer to the separate dictated note~for this date of service dictated separately.~Patient seen individually. Discussed the patient with Nursing staff reviewed the chart.~Reviewed interim history and current functioning. Reviewed vital signs,~Labs/ Radiology~and current medications noted below. Continue current treatment with the changes noted in the dictated addendum note Assessment: Vital Signs/I&O: Vital Signs Date Time Temp Pulse Resp B/P (MAP) Pulse Ox O2 Delivery O2 Flow Rate FiO2 05/24/19 19:52 90 151/79 05/24/19 15:56 97.2 18 97 Room Air I & O 05/23/19 05/23/19 05/24/19 15:00 23:00 07:00 Intake Total 720 ml 360 ml Balance 720 ml 360 ml Labs: Laboratory Tests Test 05/24/19 03:46 05/24/19 07:47 05/24/19 11:35 05/24/19 17:19 Glucose (Fingerstick) 61 mg/dL (70-99) L 130 mg/dL (70-99) H 96 mg/dL (70-99) 131 mg/dL (70-99) H Test 05/24/19 19:36 Glucose (Fingerstick) 138 mg/dL (70-99) H Current Medications: Meds: Current Medications Medications (Trade) Dose Ordered Sig/Samaria Route PRN Reason Start Time Stop Time Status Last Admin Dose Admin Divalproex Sodium (Depakote Sprinkles) 375 mg 0900,1700 PO 05/24/19 09:00 05/24/19 17:25 I have reviewed the current psychotropics carefully including drug interactions. Risk benefit ratio favors no change other than as noted in my dictated progress note. Diagnosis: Problems: (1) Anxiety disorder (2) Dementia in Alzheimer's disease with delusions (3) Dementia in Alzheimer's disease with depression (4) Dementia, vascular, with delusions (5) Dementia, vascular, with depression (6) Impulse control disorder ABIGAIL HORNE MD May 24, 2019 21:15
[2019-05-24] MEDS: hydrOXYzine HCL 25 MG TABLET PO PRN (23:00)
--- NOTE | 2019-05-25 01:35 | PN ---
DATE: 05/23/2019 PSYCHIATRIC PROGRESS NOTE This late entry of 05/23 covers elements not covered in my initial note. SUBJECTIVE: I met with the patient in the evening. Per GREGORY Chowdhury, the patient slept 6-1/4 hours the previous night. He has been calm, cooperative, confused, pleasant. Valproic acid level is 31 on Depakote Sprinkles 250 b.i.d., and we will increase it to 375 b.i.d. Check CBC, CMP, valproic acid level, ammonia level in 3 days. REVIEW OF SYSTEMS: No CV, , pulmonary, eye, ENT system symptoms on review. Reliability poor. MENTAL STATUS EXAMINATION: Oriented to himself, at times situation. Insight, judgment, recent and remote memory, attention, concentration, fund of knowledge poor; consistent with his diagnosis mentioned in my initial note. PLAN: No change from initial note. MAN Louie HORNE MD DR: MINOO/parul JOB#: [id number] / [id number]
[2019-05-25 05:55] VITALS: BP 154/87
[2019-05-25] MEDS: SERTRALINE 100 MG TABLET. PO SCH (09:27)
[2019-05-25] MEDS: MAGNESIUM OXIDE 400 MG TABLET PO SCH ×3 (09:27→20:18)
[2019-05-25] MEDS: medroxyPROGESTERone 5 MG TABLET PO SCH (09:27)
[2019-05-25] MEDS: CYANOCOBALAMIN (VITAMIN B-12) 1,000 MCG TABLET. PO SCH (09:27)
[2019-05-25] MEDS: DIVALPROEX 125 MG CAP.SPRINK PO SCH ×2 (09:27→17:24)
[2019-05-25] MEDS: QUEtiapine 50 MG TABLET. PO SCH (09:27)
[2019-05-25] MEDS: ACETAMINOPHEN 500 MG TABLET PO SCH ×2 (09:27→20:18)
[2019-05-25] MEDS: LISINOPRIL 10 MG TABLET PO SCH (09:28)
[2019-05-25] MEDS: MULTIVITAMIN with MINERAL TABLET. PO SCH (09:28)
[2019-05-25] MEDS: POTASSIUM CHLORIDE 20 MEQ TABLET.ER. PO SCH (09:29)
[2019-05-25] MEDS: CHOLECALCIFEROL (VITAMIN D3) 1,000 UNIT TABLET PO SCH (09:29)
[2019-05-25] MEDS: metFORMIN XR 500 MG TAB.ER.24H PO SCH ×2 (09:29→17:24)
[2019-05-25] MEDS: FOLIC ACID 1 MG TABLET PO SCH (09:29)
[2019-05-25] MEDS: ASPIRIN 81 MG TAB.CHEW PO SCH (09:29)
[2019-05-25] MEDS: FLUTICASONE 50MCG/NASAL SPRAY 16GM BOTTLE. NS SCH (09:30)
[2019-05-25] MEDS: INSULIN LISPRO 300 UNITS/3 ML VIAL. SQ SCH ×4 (09:32→17:25)
[2019-05-25] MEDS: QUEtiapine 25 MG TABLET. PO SCH (14:11)
[2019-05-25 15:48] VITALS: BP 151/85
[2019-05-25] MEDS: ATORVASTATIN CALCIUM 10 MG TABLET. PO SCH (20:17)
[2019-05-25] MEDS: PRAZOSIN 1 MG CAPSULE. PO SCH (20:17)
[2019-05-25] MEDS: QUEtiapine 100 MG TABLET. PO SCH (20:18)
[2019-05-25] MEDS: FAMOTIDINE 20 MG TABLET PO SCH (20:18)
[2019-05-25] MEDS: INSULIN GLARGINE SYRINGE. SQ SCH (20:23)
--- NOTE | 2019-05-25 21:20 | PDOC ---
Exam Note: Hamlet Note: Please also refer to the separate dictated note~for this date of service dictated separately.~Patient seen individually. Discussed the patient with Nursing staff reviewed the chart.~Reviewed interim history and current functioning. Reviewed vital signs,~Labs/ Radiology~and current medications noted below. Continue current treatment with the changes noted in the dictated addendum note Assessment: Vital Signs/I&O: Vital Signs Date Time Temp Pulse Resp B/P (MAP) Pulse Ox O2 Delivery O2 Flow Rate FiO2 05/25/19 20:17 100 151/85 05/25/19 15:48 97.8 16 99 05/24/19 15:56 Room Air I & O 05/24/19 05/24/19 05/25/19 15:00 23:00 07:00 Intake Total 720 ml 360 ml Balance 720 ml 360 ml Labs: Laboratory Tests Test 05/25/19 07:47 05/25/19 11:35 05/25/19 17:10 05/25/19 19:05 Glucose (Fingerstick) 77 mg/dL (70-99) 113 mg/dL (70-99) H 182 mg/dL (70-99) H 104 mg/dL (70-99) H Current Medications: Meds: Current Medications Medications (Trade) Dose Ordered Sig/Samaria Route PRN Reason Start Time Stop Time Status Last Admin Dose Admin Medroxyprogesterone Acetate (Provera) 5 mg DAILY PO 05/25/19 09:00 05/25/19 09:27 Hydroxyzine HCl (Atarax) 25 mg PRN Q2HR PRN PO ANXIETY / AGITATION 05/24/19 22:45 05/24/19 23:00 I have reviewed the current psychotropics carefully including drug interactions. Risk benefit ratio favors no change other than as noted in my dictated progress note. Diagnosis: Problems: (1) Anxiety disorder (2) Dementia in Alzheimer's disease with delusions (3) Dementia in Alzheimer's disease with depression (4) Dementia, vascular, with delusions (5) Dementia, vascular, with depression (6) Impulse control disorder ABIGAIL HORNE MD May 25, 2019 21:20
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
[2019-05-26] MEDS: guaiFENesin DM 200MG/20MG 10 ML SYRUP PO PRN ×2 (02:54→22:41)
[2019-05-26 05:52] VITALS: BP 158/82
[2019-05-26 06:58] LABS: BASO % 1 % (0-3); EOS # 0.1 x10^3/uL (0.0-0.7); EOS % 2 % (0-3); HEMATOCRIT 37.1 % (39.0-53.0); HEMOGLOBIN 11.9 g/dL (13.0-17.5); LYMPH # 1.4 x10^3/uL (1.0-4.8); LYMPH % 30 % (24-48); MEAN CORPUSCULAR HEMOGLOBIN 28 pg (25-35); MEAN CORPUSCULAR HGB CONC 32 g/dL (31-37); MEAN CORPUSCULAR VOLUME 87 fL (79-100); MONO # 0.4 x10^3/uL (0.0-1.1); MONO % 9 % (0-9); NEUT # 2.8 x10^3uL (1.8-7.7); NEUT % 59 % (31-73); PLATELET COUNT 241 x10^3/uL (140-400); RED BLOOD COUNT 4.28 x10^6/uL (4.30-5.70); RED CELL DISTRIBUTION WIDTH 14.8 % (11.5-14.5); WHITE BLOOD COUNT 4.8 x10^3/uL (4.0-11.0)
[2019-05-26 07:19] LABS: ALBUMIN 2.7 g/dL (3.4-5.0); ALBUMIN/GLOBULIN RATIO 0.6 (1.0-1.7); ALK PHOS 52 U/L (46-116); ALT (SGPT) 17 U/L (16-63); ANION GAP 6 (6-14); AST (SGOT) 13 U/L (15-37); BLOOD UREA NITROGEN 16 mg/dL (8-26); BUN/CREATININE RATIO 18 (6-20); CALCIUM 8.6 mg/dL (8.5-10.1); CARBON DIOXIDE 33 mmol/L (21-32); CHLORIDE 104 mmol/L (98-107); CREATININE 0.9 mg/dL (0.7-1.3); GFR 100.1; GLUCOSE 103 mg/dL (70-99); POTASSIUM 3.8 mmol/L (3.5-5.1); SODIUM 143 mmol/L (136-145); TOTAL BILIRUBIN 0.3 mg/dL (0.2-1.0)
[2019-05-26 07:26] LABS: VAL ACID 43 mcg/mL (50-100)
[2019-05-26] MEDS: DIVALPROEX 125 MG CAP.SPRINK PO SCH (08:37)
[2019-05-26] MEDS: METHYL SALICYLATE/MENTHOL TOPICAL OINTMENT 57GM TUBE. TP PRN (08:37)
[2019-05-26] MEDS: MULTIVITAMIN with MINERAL TABLET. PO SCH (08:38)
[2019-05-26] MEDS: metFORMIN XR 500 MG TAB.ER.24H PO SCH ×2 (08:38→17:46)
[2019-05-26] MEDS: CHOLECALCIFEROL (VITAMIN D3) 1,000 UNIT TABLET PO SCH (08:38)
[2019-05-26] MEDS: ACETAMINOPHEN 500 MG TABLET PO SCH ×2 (08:38→20:42)
[2019-05-26] MEDS: LISINOPRIL 10 MG TABLET PO SCH (08:38)
[2019-05-26] MEDS: QUEtiapine 50 MG TABLET. PO SCH (08:38)
[2019-05-26] MEDS: medroxyPROGESTERone 5 MG TABLET PO SCH (08:38)
[2019-05-26] MEDS: CYANOCOBALAMIN (VITAMIN B-12) 1,000 MCG TABLET. PO SCH (08:38)
[2019-05-26] MEDS: FOLIC ACID 1 MG TABLET PO SCH (08:38)
[2019-05-26] MEDS: MAGNESIUM OXIDE 400 MG TABLET PO SCH ×3 (08:38→20:42)
[2019-05-26] MEDS: ASPIRIN 81 MG TAB.CHEW PO SCH (08:39)
[2019-05-26] MEDS: SERTRALINE 100 MG TABLET. PO SCH (08:39)
[2019-05-26] MEDS: POTASSIUM CHLORIDE 20 MEQ TABLET.ER. PO SCH (08:39)
[2019-05-26] MEDS: FLUTICASONE 50MCG/NASAL SPRAY 16GM BOTTLE. NS SCH (08:39)
[2019-05-26] MEDS: INSULIN LISPRO 300 UNITS/3 ML VIAL. SQ SCH ×3 (08:40→17:51)
[2019-05-26] MEDS: QUEtiapine 25 MG TABLET. PO SCH (13:46)
[2019-05-26 15:57] VITALS: BP 133/81
[2019-05-26 19:26] LABS: BACTERIA,URINE 0 /HPF (0-FEW); BILIRUBIN,URINE NEG (NEG); CLARITY,URINE HAZY; COLOR,URINE AMBER; GLUCOSE,URINE NEG (NEG); NITRITE,URINE NEG (NEG); RBC,URINE 0 /HPF (0-2); SQUAMOUS EPITHELIAL CELL,UR OCC /LPF; WBC,URINE 0 /HPF (0-4)
[2019-05-26] MEDS: FAMOTIDINE 20 MG TABLET PO SCH (20:42)
[2019-05-26] MEDS: QUEtiapine 100 MG TABLET. PO SCH (20:42)
[2019-05-26] MEDS: PRAZOSIN 1 MG CAPSULE. PO SCH (20:42)
[2019-05-26] MEDS: ATORVASTATIN CALCIUM 10 MG TABLET. PO SCH (20:43)
[2019-05-26] MEDS: INSULIN GLARGINE SYRINGE. SQ SCH (20:48)
--- NOTE | 2019-05-26 22:00 | PN ---
DATE: 05/25/2019 PSYCHIATRIC PROGRESS NOTE This late entry 05/25/2019 covers elements not covered in my initial note. SUBJECTIVE: I met with the patient evening of 05/25/2019. Per GREGORY Torres, the patient slept 5-1/2 hours previous night. He has been wandering, confused, more so in the evening, having some cough in the morning, a little more resistive to medications, refused insulin at lunch, did make a sexually inappropriate comment to a female nursing staff, but he has been started on Provera. REVIEW OF SYSTEMS: No CV, , pulmonary, eye, ENT system symptoms on review. Reliability poor. MENTAL STATUS EXAM: Oriented to himself. Insight, judgment, recent and remote memory, attention, concentration, fund of knowledge poor, consistent with his diagnosis mentioned in my initial note. IMPRESSION: Major neurocognitive disorder, Alzheimer, vascular with delusion, depression, behavioral disturbance, PTSD, psychotic disorder, unspecified; impulse control disorder, unspecified. PLAN: Continue Minipress 2 mg at bedtime, Zoloft 100 mg a day, Seroquel current dosage 50 mg daily, 25 mg at 1400, 200 mg at bedtime, Zyprexa p.r.n., Depakote Sprinkles 375 mg b.i.d. with labs level to be checked on 05/26/2019 and then may increase to reach therapeutic level and he remains on Provera 5 mg a day. Rest unchanged for now. ABIGAIL HORNE MD DR: MINOO/parul JOB#: [id number] / [id number]
--- NOTE | 2019-05-26 22:08 | PDOC ---
Exam Note: Hamlet Note: Please also refer to the separate dictated note~for this date of service dictated separately.~Patient seen individually. Discussed the patient with Nursing staff reviewed the chart.~Reviewed interim history and current functioning. Reviewed vital signs,~Labs/ Radiology~and current medications noted below. Continue current treatment with the changes noted in the dictated addendum note Assessment: Vital Signs/I&O: Vital Signs Date Time Temp Pulse Resp B/P (MAP) Pulse Ox O2 Delivery O2 Flow Rate FiO2 05/26/19 20:42 88 133/81 05/26/19 15:57 97.6 18 97 Room Air I & O 05/25/19 05/25/19 05/26/19 15:00 23:00 07:00 Intake Total 240 ml 600 ml Balance 240 ml 600 ml Labs: Laboratory Tests Test 05/26/19 06:45 05/26/19 07:55 05/26/19 11:46 05/26/19 16:34 White Blood Count 4.8 x10^3/uL (4.0-11.0) Red Blood Count 4.28 x10^6/uL (4.30-5.70) L Hemoglobin 11.9 g/dL (13.0-17.5) L Hematocrit 37.1 % (39.0-53.0) L Mean Corpuscular Volume 87 fL (79-100) Mean Corpuscular Hemoglobin 28 pg (25-35) Mean Corpuscular Hemoglobin Concent 32 g/dL (31-37) Red Cell Distribution Width 14.8 % (11.5-14.5) H Platelet Count 241 x10^3/uL (140-400) Neutrophils (%) (Auto) 59 % (31-73) Lymphocytes (%) (Auto) 30 % (24-48) Monocytes (%) (Auto) 9 % (0-9) Eosinophils (%) (Auto) 2 % (0-3) Basophils (%) (Auto) 1 % (0-3) Neutrophils # (Auto) 2.8 x10^3uL (1.8-7.7) Lymphocytes # (Auto) 1.4 x10^3/uL (1.0-4.8) Monocytes # (Auto) 0.4 x10^3/uL (0.0-1.1) Eosinophils # (Auto) 0.1 x10^3/uL (0.0-0.7) Basophils # (Auto) 0.0 x10^3/uL (0.0-0.2) Sodium Level 143 mmol/L (136-145) Potassium Level 3.8 mmol/L (3.5-5.1) Chloride Level 104 mmol/L (98-107) Carbon Dioxide Level 33 mmol/L (21-32) H Anion Gap 6 (6-14) Blood Urea Nitrogen 16 mg/dL (8-26) Creatinine 0.9 mg/dL (0.7-1.3) Estimated GFR (Cockcroft-Gault) 100.1 BUN/Creatinine Ratio 18 (6-20) Glucose Level 103 mg/dL (70-99) H Calcium Level 8.6 mg/dL (8.5-10.1) Total Bilirubin 0.3 mg/dL (0.2-1.0) Aspartate Amino Transferase (AST) 13 U/L (15-37) L Alanine Aminotransferase (ALT) 17 U/L (16-63) Alkaline Phosphatase 52 U/L (46-116) Ammonia 13 mcmol/L (11-34) Total Protein 7.0 g/dL (6.4-8.2) Albumin 2.7 g/dL (3.4-5.0) L Albumin/Globulin Ratio 0.6 (1.0-1.7) L Valproic Acid Level 43 mcg/mL (50-100) L Valproic Acid Last Dose Date 05/23/19 Valproic Acid Last Dose Time 1700 Glucose (Fingerstick) 88 mg/dL (70-99) 181 mg/dL (70-99) H 83 mg/dL (70-99) Test 05/26/19 18:02 05/26/19 19:06 Urine Collection Type Unknown Urine Color Charlee Urine Clarity Hazy Urine pH 8.0 Urine Specific [place] 1.025 Urine Protein Neg (NEG-TRACE) Urine Glucose (UA) Neg mg/dL (NEG) Urine Ketones (Stick) Neg mg/dL (NEG) Urine Blood Neg (NEG) Urine Nitrite Neg (NEG) Urine Bilirubin Neg (NEG) Urine Urobilinogen Dipstick 1.0 mg/dL (0.2 mg/dL) Urine Leukocyte Esterase Neg (NEG) Urine RBC 0 /HPF (0-2) Urine WBC 0 /HPF (0-4) Urine Squamous Epithelial Cells Occ /LPF Urine Bacteria 0 /HPF (0-FEW) Glucose (Fingerstick) 109 mg/dL (70-99) H Current Medications: Meds: Current Medications Medications (Trade) Dose Ordered Sig/Samaria Route PRN Reason Start Time Stop Time Status Last Admin Dose Admin Prazosin HCl (Minipress) 3 mg HS PO 05/26/19 21:00 05/26/19 20:42 I have reviewed the current psychotropics carefully including drug interactions. Risk benefit ratio favors no change other than as noted in my dictated progress note. Diagnosis: Problems: (1) Anxiety disorder (2) Dementia in Alzheimer's disease with delusions (3) Dementia in Alzheimer's disease with depression (4) Dementia, vascular, with delusions (5) Dementia, vascular, with depression (6) Impulse control disorder ABIGAIL HORNE MD May 26, 2019 22:08
[2019-05-27] MEDS: QUEtiapine 50 MG TABLET. PO SCH (08:36)
[2019-05-27] MEDS: ACETAMINOPHEN 500 MG TABLET PO SCH ×2 (08:36→20:34)
[2019-05-27] MEDS: FOLIC ACID 1 MG TABLET PO SCH (08:36)
[2019-05-27] MEDS: medroxyPROGESTERone 5 MG TABLET PO SCH (08:36)
[2019-05-27] MEDS: metFORMIN XR 500 MG TAB.ER.24H PO SCH ×2 (08:37→17:27)
[2019-05-27] MEDS: ASPIRIN 81 MG TAB.CHEW PO SCH (08:37)
[2019-05-27] MEDS: POTASSIUM CHLORIDE 20 MEQ TABLET.ER. PO SCH (08:37)
[2019-05-27] MEDS: MULTIVITAMIN with MINERAL TABLET. PO SCH (08:37)
[2019-05-27] MEDS: LISINOPRIL 10 MG TABLET PO SCH (08:38)
[2019-05-27] MEDS: CYANOCOBALAMIN (VITAMIN B-12) 1,000 MCG TABLET. PO SCH (08:38)
[2019-05-27] MEDS: SERTRALINE 100 MG TABLET. PO SCH (08:38)
[2019-05-27] MEDS: FLUTICASONE 50MCG/NASAL SPRAY 16GM BOTTLE. NS SCH (08:39)
[2019-05-27] MEDS: MAGNESIUM OXIDE 400 MG TABLET PO SCH ×3 (08:39→20:33)
[2019-05-27] MEDS: CHOLECALCIFEROL (VITAMIN D3) 1,000 UNIT TABLET PO SCH (08:39)
[2019-05-27] MEDS: DIVALPROEX 125 MG CAP.SPRINK PO SCH ×2 (08:51→17:27)
[2019-05-27] MEDS: INSULIN LISPRO 300 UNITS/3 ML VIAL. SQ SCH ×3 (08:54→17:31)
[2019-05-27] MEDS: QUEtiapine 25 MG TABLET. PO SCH (13:42)
[2019-05-27 16:12] VITALS: BP 166/98
[2019-05-27] MEDS: PRAZOSIN 1 MG CAPSULE. PO SCH (20:33)
[2019-05-27] MEDS: ATORVASTATIN CALCIUM 10 MG TABLET. PO SCH (20:34)
[2019-05-27] MEDS: FAMOTIDINE 20 MG TABLET PO SCH (20:34)
[2019-05-27] MEDS: QUEtiapine 100 MG TABLET. PO SCH (20:34)
--- NOTE | 2019-05-27 21:00 | PDOC ---
Exam Note: [place] Note: Please also refer to the separate dictated note~for this date of service dictated separately.~Patient seen individually. Discussed the patient with Nursing staff reviewed the chart.~Reviewed interim history and current functioning. Reviewed vital signs,~Labs/ Radiology~and current medications noted below. Continue current treatment with the changes noted in the dictated addendum note Assessment: Vital Signs/I&O: Vital Signs Date Time Temp Pulse Resp B/P (MAP) Pulse Ox O2 Delivery O2 Flow Rate FiO2 05/27/19 20:33 79 166/98 05/27/19 16:12 98.1 20 97 05/26/19 15:57 Room Air I & O 05/26/19 05/26/19 05/27/19 15:00 23:00 07:00 Intake Total 720 ml 900 ml Balance 720 ml 900 ml Labs: Laboratory Tests Test 05/27/19 07:35 05/27/19 12:05 05/27/19 17:10 05/27/19 19:39 Glucose (Fingerstick) 78 mg/dL (70-99) 160 mg/dL (70-99) H 146 mg/dL (70-99) H 145 mg/dL (70-99) H Current Medications: Meds: Current Medications Medications (Trade) Dose Ordered Sig/Samaria Route PRN Reason Start Time Stop Time Status Last Admin Dose Admin Divalproex Sodium (Depakote Sprinkles) 375 mg DAILY@0900 PO 05/27/19 09:00 05/27/19 08:51 Divalproex Sodium (Depakote Sprinkles) 500 mg 1700 PO 05/27/19 17:00 05/27/19 17:27 I have reviewed the current psychotropics carefully including drug interactions. Risk benefit ratio favors no change other than as noted in my dictated progress note. Diagnosis: Problems: (1) Anxiety disorder (2) Dementia in Alzheimer's disease with delusions (3) Dementia in Alzheimer's disease with depression (4) Dementia, vascular, with delusions (5) Dementia, vascular, with depression (6) Impulse control disorder ABIGAIL HORNE MD May 27, 2019 21:00
[2019-05-27] MEDS: INSULIN GLARGINE SYRINGE. SQ SCH (21:05)
[2019-05-28 06:12] VITALS: BP 153/84
[2019-05-28] MEDS: metFORMIN XR 500 MG TAB.ER.24H PO SCH ×3 (08:27→17:17)
[2019-05-28] MEDS: LISINOPRIL 10 MG TABLET PO SCH (08:27)
[2019-05-28] MEDS: MULTIVITAMIN with MINERAL TABLET. PO SCH (08:28)
[2019-05-28] MEDS: DIVALPROEX 125 MG CAP.SPRINK PO SCH ×3 (08:28→17:17)
[2019-05-28] MEDS: QUEtiapine 50 MG TABLET. PO SCH (08:28)
[2019-05-28] MEDS: medroxyPROGESTERone 5 MG TABLET PO SCH (08:28)
[2019-05-28] MEDS: CHOLECALCIFEROL (VITAMIN D3) 1,000 UNIT TABLET PO SCH (08:28)
[2019-05-28] MEDS: CYANOCOBALAMIN (VITAMIN B-12) 1,000 MCG TABLET. PO SCH (08:28)
[2019-05-28] MEDS: MAGNESIUM OXIDE 400 MG TABLET PO SCH ×3 (08:28→20:00)
[2019-05-28] MEDS: POTASSIUM CHLORIDE 20 MEQ TABLET.ER. PO SCH (08:28)
[2019-05-28] MEDS: SERTRALINE 100 MG TABLET. PO SCH (08:28)
[2019-05-28] MEDS: ASPIRIN 81 MG TAB.CHEW PO SCH (08:28)
[2019-05-28] MEDS: FOLIC ACID 1 MG TABLET PO SCH (08:28)
[2019-05-28] MEDS: ACETAMINOPHEN 500 MG TABLET PO SCH ×2 (08:28→19:59)
[2019-05-28] MEDS: FLUTICASONE 50MCG/NASAL SPRAY 16GM BOTTLE. NS SCH ×2 (08:29→09:00)
[2019-05-28] MEDS: INSULIN LISPRO 300 UNITS/3 ML VIAL. SQ SCH ×3 (08:36→17:21)
[2019-05-28] MEDS: QUEtiapine 25 MG TABLET. PO SCH (14:23)
[2019-05-28 16:29] VITALS: BP 167/93
--- NOTE | 2019-05-28 17:16 | PN ---
DATE: 05/26/2019 PSYCHIATRIC PROGRESS NOTE This late entry 05/26/2019 covers elements not covered in my initial note. SUBJECTIVE: I met with the patient evening of 05/26/2019. Per GREGORY Mary, the patient slept 5-3/4 hours previous night. He has not made any inappropriate sexual comments, at times somewhat flirtatious, incontinent of urine. We will check a UA, rule out urinary tract infection. He was aggressive intermittently in the day room. Valproic acid level is slightly subtherapeutic at 41 on Depakote Sprinkles 375 mg b.i.d. REVIEW OF SYSTEMS: No CV, , pulmonary, eye, ENT system symptoms on review. Reliability poor. MENTAL STATUS EXAM: Oriented to himself. Insight, judgment, recent and remote memory, attention, concentration, fund of knowledge poor, consistent with his diagnosis. IMPRESSION: Major neurocognitive disorder, Alzheimer, vascular with delusion, depression, behavioral disturbance; anxiety disorder, unspecified; impulse control disorder, unspecified; posttraumatic stress disorder, rule out urinary tract infection. PLAN: Check the UA as noted. Increase Depakote from 375 b.i.d. to 375 mg a.m. and 500 mg at bedtime. Check CBC, CMP, valproic acid level, ammonia level in 3 days. Adjust to reach therapeutic level. He does present symptoms of PTSD, we will increase Minipress from 2 mg at bedtime to 3 mg at bedtime. Rest unchanged for now. ABIGAIL HORNE MD DR: MINOO/parul JOB#: [id number] / [id number]
--- NOTE | 2019-05-28 18:06 | PN ---
DATE: 05/27/2019 This late entry, 05/27/2019, covers the elements not covered in my initial note. SUBJECTIVE: I met with the patient evening of 05/27/2019. Per GREGORY Torres, the patient slept 6-1/4 hours previous night. The previous night, he was somewhat flirtatious with female staff, but during the day on 05/27/2019, calm and compliant and appropriate in the evening. REVIEW OF SYSTEMS: No CV, , pulmonary, eye, or ENT system symptoms on review. Reliability is poor. MENTAL STATUS EXAM: Oriented to himself. Insight, judgment, recent and remote memory, attention, concentration, and fund of knowledge are poor and consistent with his diagnosis. IMPRESSION: Major neurocognitive disorder, Alzheimer, vascular with delusion, depression, behavioral disturbance, PTSD; anxiety disorder, unspecified; and impulse control disorder, unspecified. PLAN: Continue current psychotropics. Depakote has been increased to 375 mg for a.m. and 500 mg at bedtime. Maintain Minipress, which was just increased to 3 mg at bedtime, Zoloft maintain 100 mg a day, Seroquel at current dosage, Zyprexa p.r.n., hydroxyzine p.r.n. Provera 5 mg daily for his sexually abrasive behaviors, which have improved. Adjust further as clinically indicated. ABIGAIL HORNE MD DR: MINOO/parul JOB#: [id number] / [id number]
[2019-05-28] MEDS: QUEtiapine 100 MG TABLET. PO SCH (19:58)
[2019-05-28] MEDS: ATORVASTATIN CALCIUM 10 MG TABLET. PO SCH (19:58)
[2019-05-28] MEDS: FAMOTIDINE 20 MG TABLET PO SCH (20:00)
[2019-05-28] MEDS: PRAZOSIN 1 MG CAPSULE. PO SCH (20:00)
--- NOTE | 2019-05-28 20:58 | PDOC ---
Exam Note: [place] Note: Please also refer to the separate dictated note~for this date of service dictated separately.~Patient seen individually. Discussed the patient with Nursing staff reviewed the chart.~Reviewed interim history and current functioning. Reviewed vital signs,~Labs/ Radiology~and current medications noted below. Continue current treatment with the changes noted in the dictated addendum note Assessment: Vital Signs/I&O: Vital Signs Date Time Temp Pulse Resp B/P (MAP) Pulse Ox O2 Delivery O2 Flow Rate FiO2 05/28/19 20:00 80 167/93 05/28/19 16:29 98.0 18 96 05/28/19 06:12 Room Air I & O 05/27/19 05/27/19 05/28/19 15:00 23:00 07:00 Intake Total 1080 ml 600 ml 240 ml Balance 1080 ml 600 ml 240 ml Labs: Laboratory Tests Test 05/28/19 07:25 05/28/19 11:46 05/28/19 17:04 05/28/19 19:08 Glucose (Fingerstick) 77 mg/dL (70-99) 77 mg/dL (70-99) 142 mg/dL (70-99) H 255 mg/dL (70-99) H Current Medications: I have reviewed the current psychotropics carefully including drug interactions. Risk benefit ratio favors no change other than as noted in my dictated progress note. Diagnosis: Problems: (1) Anxiety disorder (2) Dementia in Alzheimer's disease with delusions (3) Dementia in Alzheimer's disease with depression (4) Dementia, vascular, with delusions (5) Dementia, vascular, with depression (6) Impulse control disorder ABIGAIL HORNE MD May 28, 2019 20:58
[2019-05-28] MEDS: INSULIN GLARGINE SYRINGE. SQ SCH (21:57)
[2019-05-29 06:14] VITALS: BP 165/93
[2019-05-29 09:00] LABS: BASO % 0 % (0-3); EOS # 0.1 x10^3/uL (0.0-0.7); EOS % 2 % (0-3); HEMOGLOBIN 12.7 g/dL (13.0-17.5); LYMPH # 1.6 x10^3/uL (1.0-4.8); LYMPH % 30 % (24-48); MEAN CORPUSCULAR HEMOGLOBIN 28 pg (25-35); MEAN CORPUSCULAR HGB CONC 33 g/dL (31-37); MEAN CORPUSCULAR VOLUME 86 fL (79-100); MONO # 0.6 x10^3/uL (0.0-1.1); MONO % 11 % (0-9); NEUT % 56 % (31-73); PLATELET COUNT 279 x10^3/uL (140-400); RED BLOOD COUNT 4.55 x10^6/uL (4.30-5.70); RED CELL DISTRIBUTION WIDTH 14.7 % (11.5-14.5); WHITE BLOOD COUNT 5.3 x10^3/uL (4.0-11.0)
[2019-05-29] MEDS: metFORMIN XR 500 MG TAB.ER.24H PO SCH ×2 (09:07→17:12)
[2019-05-29 09:08] LABS: ALBUMIN 3.1 g/dL (3.4-5.0); ALBUMIN/GLOBULIN RATIO 0.7 (1.0-1.7); ALK PHOS 59 U/L (46-116); ALT (SGPT) 16 U/L (16-63); ANION GAP 6 (6-14); AST (SGOT) 13 U/L (15-37); BLOOD UREA NITROGEN 15 mg/dL (8-26); BUN/CREATININE RATIO 14 (6-20); CARBON DIOXIDE 33 mmol/L (21-32); CHLORIDE 103 mmol/L (98-107); CREATININE 1.1 mg/dL (0.7-1.3); GFR 79.4; GLUCOSE 98 mg/dL (70-99); POTASSIUM 3.6 mmol/L (3.5-5.1); SODIUM 142 mmol/L (136-145); TOTAL BILIRUBIN 0.3 mg/dL (0.2-1.0); TOTAL PROTEIN 7.8 g/dL (6.4-8.2)
[2019-05-29] MEDS: INSULIN LISPRO 300 UNITS/3 ML VIAL. SQ SCH ×3 (09:08→17:13)
[2019-05-29] MEDS: ASPIRIN 81 MG TAB.CHEW PO SCH (09:08)
[2019-05-29] MEDS: FLUTICASONE 50MCG/NASAL SPRAY 16GM BOTTLE. NS SCH (09:08)
[2019-05-29] MEDS: MAGNESIUM OXIDE 400 MG TABLET PO SCH ×3 (09:09→21:18)
[2019-05-29] MEDS: DIVALPROEX 125 MG CAP.SPRINK PO SCH ×2 (09:09→17:11)
[2019-05-29] MEDS: FOLIC ACID 1 MG TABLET PO SCH (09:09)
[2019-05-29] MEDS: medroxyPROGESTERone 5 MG TABLET PO SCH (09:09)
[2019-05-29] MEDS: LISINOPRIL 10 MG TABLET PO SCH (09:09)
[2019-05-29] MEDS: POTASSIUM CHLORIDE 20 MEQ TABLET.ER. PO SCH (09:09)
[2019-05-29] MEDS: ACETAMINOPHEN 500 MG TABLET PO SCH ×2 (09:10→21:18)
[2019-05-29] MEDS: SERTRALINE 100 MG TABLET. PO SCH (09:10)
[2019-05-29] MEDS: CHOLECALCIFEROL (VITAMIN D3) 1,000 UNIT TABLET PO SCH (09:10)
[2019-05-29] MEDS: MULTIVITAMIN with MINERAL TABLET. PO SCH (09:10)
[2019-05-29] MEDS: QUEtiapine 50 MG TABLET. PO SCH (09:10)
[2019-05-29] MEDS: CYANOCOBALAMIN (VITAMIN B-12) 1,000 MCG TABLET. PO SCH (09:10)
[2019-05-29 09:11] LABS: VAL ACID 32 mcg/mL (50-100)
[2019-05-29] MEDS: QUEtiapine 25 MG TABLET. PO SCH (13:46)
[2019-05-29 15:27] VITALS: BP 163/86
--- NOTE | 2019-05-29 20:55 | PDOC ---
Exam Note: [place] Note: Please also refer to the separate dictated note~for this date of service dictated separately.~Patient seen individually. Discussed the patient with Nursing staff reviewed the chart.~Reviewed interim history and current functioning. Reviewed vital signs,~Labs/ Radiology~and current medications noted below. Continue current treatment with the changes noted in the dictated addendum note Assessment: Vital Signs/I&O: Vital Signs Date Time Temp Pulse Resp B/P (MAP) Pulse Ox O2 Delivery O2 Flow Rate FiO2 05/29/19 15:27 97.4 86 16 163/86 (111) 95 05/29/19 06:14 Room Air I & O 05/28/19 05/28/19 05/29/19 15:00 23:00 07:00 Intake Total 480 ml 240 ml 240 ml Balance 480 ml 240 ml 240 ml Labs: Laboratory Tests Test 05/29/19 07:20 05/29/19 08:35 05/29/19 11:31 05/29/19 16:39 Glucose (Fingerstick) 86 mg/dL (70-99) 130 mg/dL (70-99) H 151 mg/dL (70-99) H White Blood Count 5.3 x10^3/uL (4.0-11.0) Red Blood Count 4.55 x10^6/uL (4.30-5.70) Hemoglobin 12.7 g/dL (13.0-17.5) L Hematocrit 39.0 % (39.0-53.0) Mean Corpuscular Volume 86 fL (79-100) Mean Corpuscular Hemoglobin 28 pg (25-35) Mean Corpuscular Hemoglobin Concent 33 g/dL (31-37) Red Cell Distribution Width 14.7 % (11.5-14.5) H Platelet Count 279 x10^3/uL (140-400) Neutrophils (%) (Auto) 56 % (31-73) Lymphocytes (%) (Auto) 30 % (24-48) Monocytes (%) (Auto) 11 % (0-9) H Eosinophils (%) (Auto) 2 % (0-3) Basophils (%) (Auto) 0 % (0-3) Neutrophils # (Auto) 3.0 x10^3uL (1.8-7.7) Lymphocytes # (Auto) 1.6 x10^3/uL (1.0-4.8) Monocytes # (Auto) 0.6 x10^3/uL (0.0-1.1) Eosinophils # (Auto) 0.1 x10^3/uL (0.0-0.7) Basophils # (Auto) 0.0 x10^3/uL (0.0-0.2) Sodium Level 142 mmol/L (136-145) Potassium Level 3.6 mmol/L (3.5-5.1) Chloride Level 103 mmol/L (98-107) Carbon Dioxide Level 33 mmol/L (21-32) H Anion Gap 6 (6-14) Blood Urea Nitrogen 15 mg/dL (8-26) Creatinine 1.1 mg/dL (0.7-1.3) Estimated GFR (Cockcroft-Gault) 79.4 BUN/Creatinine Ratio 14 (6-20) Glucose Level 98 mg/dL (70-99) Calcium Level 9.0 mg/dL (8.5-10.1) Total Bilirubin 0.3 mg/dL (0.2-1.0) Aspartate Amino Transferase (AST) 13 U/L (15-37) L Alanine Aminotransferase (ALT) 16 U/L (16-63) Alkaline Phosphatase 59 U/L (46-116) Ammonia < 10 mcmol/L (11-34) L Total Protein 7.8 g/dL (6.4-8.2) Albumin 3.1 g/dL (3.4-5.0) L Albumin/Globulin Ratio 0.7 (1.0-1.7) L Valproic Acid Level 32 mcg/mL (50-100) L Valproic Acid Last Dose Date 09/24/19 Valproic Acid Last Dose Time 0600 Test 05/29/19 19:22 Glucose (Fingerstick) 94 mg/dL (70-99) Current Medications: Meds: Current Medications Medications (Trade) Dose Ordered Sig/Samaria Route PRN Reason Start Time Stop Time Status Last Admin Dose Admin Medroxyprogesterone Acetate (Provera) 10 mg DAILY PO 05/29/19 09:00 05/29/19 09:09 I have reviewed the current psychotropics carefully including drug interactions. Risk benefit ratio favors no change other than as noted in my dictated progress note. Diagnosis: Problems: (1) Anxiety disorder (2) Dementia in Alzheimer's disease with delusions (3) Dementia in Alzheimer's disease with depression (4) Dementia, vascular, with delusions (5) Dementia, vascular, with depression (6) Impulse control disorder ABIGAIL HORNE MD May 29, 2019 20:55
[2019-05-29] MEDS: ATORVASTATIN CALCIUM 10 MG TABLET. PO SCH (21:17)
[2019-05-29] MEDS: FAMOTIDINE 20 MG TABLET PO SCH (21:17)
[2019-05-29] MEDS: QUEtiapine 100 MG TABLET. PO SCH (21:18)
[2019-05-29] MEDS: INSULIN GLARGINE SYRINGE. SQ SCH (21:22)
[2019-05-29] MEDS: PRAZOSIN 1 MG CAPSULE. PO SCH (21:23)
[2019-05-30 05:51] VITALS: BP 152/83
[2019-05-30] MEDS: INSULIN LISPRO 300 UNITS/3 ML VIAL. SQ SCH ×3 (08:00→17:16)
[2019-05-30] MEDS: FLUTICASONE 50MCG/NASAL SPRAY 16GM BOTTLE. NS SCH (09:00)
[2019-05-30] MEDS ORDERED: DIVALPROEX 125 MG CAP.SPRINK PO SCH (09:00)
[2019-05-30] MEDS: metFORMIN XR 500 MG TAB.ER.24H PO SCH ×2 (09:08→16:47)
[2019-05-30] MEDS: ASPIRIN 81 MG TAB.CHEW PO SCH (09:09)
[2019-05-30] MEDS: FOLIC ACID 1 MG TABLET PO SCH (09:11)
[2019-05-30] MEDS: MAGNESIUM OXIDE 400 MG TABLET PO SCH ×3 (09:11→20:01)
[2019-05-30] MEDS: POTASSIUM CHLORIDE 20 MEQ TABLET.ER. PO SCH (09:11)
[2019-05-30] MEDS: LISINOPRIL 10 MG TABLET PO SCH (09:12)
[2019-05-30] MEDS: medroxyPROGESTERone 5 MG TABLET PO SCH (09:12)
[2019-05-30] MEDS: MULTIVITAMIN with MINERAL TABLET. PO SCH (09:13)
[2019-05-30] MEDS: ACETAMINOPHEN 500 MG TABLET PO SCH ×2 (09:13→20:01)
[2019-05-30] MEDS: QUEtiapine 50 MG TABLET. PO SCH (09:13)
[2019-05-30] MEDS: CYANOCOBALAMIN (VITAMIN B-12) 1,000 MCG TABLET. PO SCH (09:14)
[2019-05-30] MEDS: SERTRALINE 100 MG TABLET. PO SCH (09:14)
[2019-05-30] MEDS: CHOLECALCIFEROL (VITAMIN D3) 1,000 UNIT TABLET PO SCH (09:14)
[2019-05-30] MEDS: QUEtiapine 25 MG TABLET. PO SCH (13:11)
[2019-05-30 15:31] VITALS: BP 166/87
[2019-05-30] MEDS: DIVALPROEX 125 MG CAP.SPRINK PO SCH (16:47)
[2019-05-30] MEDS: PRAZOSIN 1 MG CAPSULE. PO SCH (20:01)
[2019-05-30] MEDS: FAMOTIDINE 20 MG TABLET PO SCH (20:01)
[2019-05-30] MEDS: QUEtiapine 100 MG TABLET. PO SCH (20:01)
[2019-05-30] MEDS: ATORVASTATIN CALCIUM 10 MG TABLET. PO SCH (20:02)
[2019-05-30] MEDS: hydrOXYzine HCL 25 MG TABLET PO PRN (20:02)
[2019-05-30] MEDS: INSULIN GLARGINE SYRINGE. SQ SCH (20:13)
--- NOTE | 2019-05-30 20:58 | PDOC ---
Exam Note: [place] Note: Please also refer to the separate dictated note~for this date of service dictated separately.~Patient seen individually. Discussed the patient with Nursing staff reviewed the chart.~Reviewed interim history and current functioning. Reviewed vital signs,~Labs/ Radiology~and current medications noted below. Continue current treatment with the changes noted in the dictated addendum note Assessment: Vital Signs/I&O: Vital Signs Date Time Temp Pulse Resp B/P (MAP) Pulse Ox O2 Delivery O2 Flow Rate FiO2 05/30/19 20:01 75 166/87 05/30/19 15:31 98.2 18 97 05/29/19 06:14 Room Air I & O 05/29/19 05/29/19 05/30/19 15:00 23:00 07:00 Intake Total 840 ml 480 ml Balance 840 ml 480 ml Labs: Laboratory Tests Test 05/30/19 07:58 05/30/19 08:27 05/30/19 12:04 05/30/19 16:51 Glucose (Fingerstick) 66 mg/dL (70-99) L 119 mg/dL (70-99) H 252 mg/dL (70-99) H 236 mg/dL (70-99) H Test 05/30/19 19:18 Glucose (Fingerstick) 228 mg/dL (70-99) H Current Medications: Meds: Current Medications Medications (Trade) Dose Ordered Sig/Samaria Route PRN Reason Start Time Stop Time Status Last Admin Dose Admin Divalproex Sodium (Depakote Sprinkles) 500 mg DAILY@0900 PO 05/30/19 09:00 05/30/19 09:09 I have reviewed the current psychotropics carefully including drug interactions. Risk benefit ratio favors no change other than as noted in my dictated progress note. Diagnosis: Problems: (1) Anxiety disorder (2) Dementia in Alzheimer's disease with delusions (3) Dementia in Alzheimer's disease with depression (4) Dementia, vascular, with delusions (5) Dementia, vascular, with depression (6) Impulse control disorder ABIGAIL HORNE MD May 30, 2019 20:57
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
--- NOTE | 2019-05-31 00:21 | PN ---
DATE: 05/29/2019 PSYCHIATRIC PROGRESS NOTE This late entry 05/29/2019 covers elements not covered in my initial note. SUBJECTIVE: I met with the patient evening of 05/29/2019. The patient slept 6-1/2 hours previous night. He was somewhat inappropriate sexually with one of the female nursing staff previous night, calling her beautiful, grabbing at her, redirected. REVIEW OF SYSTEMS: No CV, , pulmonary, eye, ENT system symptoms on review. Reliability poor. MENTAL STATUS EXAM: Oriented to himself. Insight, judgment, recent and remote memory, attention, concentration, fund of knowledge poor, consistent with his diagnosis. IMPRESSION: Major neurocognitive disorder, Alzheimer, vascular with delusion, depression, behavioral disturbance, PTSD; anxiety disorder, unspecified; impulse control disorder, unspecified. PLAN: Increase Provera from 10 mg a day to 15 mg a day after he has been on 10 mg for [address] Garcia. Depakote Sprinkles 375 mg a.m. and 500 at bedtime, level subtherapeutic at 32. We will increase to 500 mg b.i.d. Check CBC, CMP, valproic acid level in 3 days. Rest unchanged for now including Seroquel, Zoloft, Minipress and hydroxyzine and Zyprexa are p.r.n. MAN Louie HORNE MD DR: MINOO/parul JOB#: [id number] / [id number]
[2019-05-31 06:04] VITALS: BP 172/94
[2019-05-31] MEDS: ASPIRIN 81 MG TAB.CHEW PO SCH (08:47)
[2019-05-31] MEDS: metFORMIN XR 500 MG TAB.ER.24H PO SCH ×2 (08:47→16:51)
[2019-05-31] MEDS: POTASSIUM CHLORIDE 20 MEQ TABLET.ER. PO SCH (08:48)
[2019-05-31] MEDS: DIVALPROEX 125 MG CAP.SPRINK PO SCH ×2 (08:48→20:05)
[2019-05-31] MEDS: SERTRALINE 100 MG TABLET. PO SCH (08:49)
[2019-05-31] MEDS: ACETAMINOPHEN 500 MG TABLET PO SCH ×2 (08:49→19:58)
[2019-05-31] MEDS: QUEtiapine 50 MG TABLET. PO SCH (08:49)
[2019-05-31] MEDS: LISINOPRIL 10 MG TABLET PO SCH (08:49)
[2019-05-31] MEDS: medroxyPROGESTERone 5 MG TABLET PO SCH (08:49)
[2019-05-31] MEDS: FLUTICASONE 50MCG/NASAL SPRAY 16GM BOTTLE. NS SCH (09:00)
[2019-05-31] MEDS: CHOLECALCIFEROL (VITAMIN D3) 1,000 UNIT TABLET PO SCH (09:00)
[2019-05-31] MEDS: CYANOCOBALAMIN (VITAMIN B-12) 1,000 MCG TABLET. PO SCH (09:00)
[2019-05-31] MEDS: FOLIC ACID 1 MG TABLET PO SCH (09:00)
[2019-05-31] MEDS: MAGNESIUM OXIDE 400 MG TABLET PO SCH ×3 (09:00→19:58)
[2019-05-31] MEDS: MULTIVITAMIN with MINERAL TABLET. PO SCH (09:00)
[2019-05-31] MEDS: INSULIN LISPRO 300 UNITS/3 ML VIAL. SQ SCH ×3 (09:13→17:35)
[2019-05-31] MEDS: QUEtiapine 25 MG TABLET. PO SCH (13:18)
[2019-05-31 15:58] VITALS: BP 147/81
[2019-05-31] MEDS: hydrOXYzine HCL 25 MG TABLET PO PRN (18:14)
[2019-05-31] MEDS: ATORVASTATIN CALCIUM 10 MG TABLET. PO SCH (19:57)
[2019-05-31] MEDS: PRAZOSIN 1 MG CAPSULE. PO SCH (19:58)
[2019-05-31] MEDS: FAMOTIDINE 20 MG TABLET PO SCH (19:58)
[2019-05-31] MEDS: QUEtiapine 100 MG TABLET. PO SCH (19:58)
[2019-05-31] MEDS: INSULIN GLARGINE SYRINGE. SQ SCH (20:03)
--- NOTE | 2019-05-31 20:56 | PDOC ---
Exam Note: [place] Note: Please also refer to the separate dictated note~for this date of service dictated separately.~Patient seen individually. Discussed the patient with Nursing staff reviewed the chart.~Reviewed interim history and current functioning. Reviewed vital signs,~Labs/ Radiology~and current medications noted below. Continue current treatment with the changes noted in the dictated addendum note Assessment: Vital Signs/I&O: Vital Signs Date Time Temp Pulse Resp B/P (MAP) Pulse Ox O2 Delivery O2 Flow Rate FiO2 05/31/19 19:58 100 147/81 05/31/19 15:58 98.1 18 97 05/29/19 06:14 Room Air I & O 05/30/19 05/30/19 05/31/19 15:00 23:00 07:00 Intake Total 1140 ml 480 ml 240 ml Balance 1140 ml 480 ml 240 ml Labs: Laboratory Tests Test 05/31/19 07:41 05/31/19 11:55 05/31/19 16:25 05/31/19 19:28 Glucose (Fingerstick) 76 mg/dL (70-99) 158 mg/dL (70-99) H 161 mg/dL (70-99) H 77 mg/dL (70-99) Current Medications: Meds: Current Medications Medications (Trade) Dose Ordered Sig/Samaria Route PRN Reason Start Time Stop Time Status Last Admin Dose Admin Medroxyprogesterone Acetate (Provera) 15 mg DAILY PO 05/31/19 09:00 05/31/19 08:49 Divalproex Sodium (Depakote Sprinkles) 500 mg BID PO 05/31/19 09:00 05/31/19 20:05 I have reviewed the current psychotropics carefully including drug interactions. Risk benefit ratio favors no change other than as noted in my dictated progress note. Diagnosis: Problems: (1) Anxiety disorder (2) Dementia in Alzheimer's disease with delusions (3) Dementia in Alzheimer's disease with depression (4) Dementia, vascular, with delusions (5) Dementia, vascular, with depression (6) Impulse control disorder ABIGAIL HORNE MD May 31, 2019 20:56
--- NOTE | 2019-05-31 23:58 | PN ---
DATE: 05/30/2019 PSYCHIATRIC PROGRESS NOTE This late entry 05/30/2019 covers elements not covered in my initial note. SUBJECTIVE: I met with the patient in the evening. The patient slept 6-3/4 hours previous night per GREGORY Rolle. Per nursing report, he remains confused, felt people were in his house, asking them to leave. He was agitated, had to be placed in the [facility]. Staff had called me. We started Atarax p.r.n. He received a dose at 8:15 a.m. REVIEW OF SYSTEMS: No CV, , pulmonary, eye, ENT system symptoms on review. Reliability poor. MENTAL STATUS EXAMINATION: Oriented to himself. Insight, judgment, recent and remote memory, attention, concentration, fund of knowledge poor, consistent with his diagnosis mentioned in my initial note. IMPRESSION: Major neurocognitive disorder, Alzheimer, vascular with delusion, depression, behavioral disturbance; anxiety disorder, unspecified; impulse control disorder, unspecified; post-traumatic stress disorder. Rest unchanged. PLAN: No change from initial note. Continue Minipress 3 mg at bedtime, Zoloft, Seroquel, Zyprexa p.r.n., hydroxyzine p.r.n., Depakote Sprinkles, Provera for his sexually inappropriate behaviors and on 05/31/2019, we will increase it to 15 mg a day if okay with Dr. Garcia. MAN Louie HORNE MD DR: MINOO/parul JOB#: [id number] / [id number]
[2019-06-01 06:14] VITALS: BP 127/77
[2019-06-01] MEDS: metFORMIN XR 500 MG TAB.ER.24H PO SCH ×3 (08:00→17:13)
[2019-06-01] MEDS: INSULIN LISPRO 300 UNITS/3 ML VIAL. SQ SCH ×3 (08:00→17:15)
[2019-06-01] MEDS: FLUTICASONE 50MCG/NASAL SPRAY 16GM BOTTLE. NS SCH (08:12)
[2019-06-01] MEDS: ACETAMINOPHEN 500 MG TABLET PO SCH ×2 (08:13→20:05)
[2019-06-01] MEDS: POTASSIUM CHLORIDE 20 MEQ TABLET.ER. PO SCH (08:13)
[2019-06-01] MEDS: QUEtiapine 50 MG TABLET. PO SCH (08:13)
[2019-06-01] MEDS: DIVALPROEX 125 MG CAP.SPRINK PO SCH ×2 (08:13→20:06)
[2019-06-01] MEDS: medroxyPROGESTERone 5 MG TABLET PO SCH (08:14)
[2019-06-01] MEDS: CYANOCOBALAMIN (VITAMIN B-12) 1,000 MCG TABLET. PO SCH (08:14)
[2019-06-01] MEDS: SERTRALINE 100 MG TABLET. PO SCH (08:14)
[2019-06-01] MEDS: MULTIVITAMIN with MINERAL TABLET. PO SCH (08:14)
[2019-06-01] MEDS: FOLIC ACID 1 MG TABLET PO SCH (08:14)
[2019-06-01] MEDS: MAGNESIUM OXIDE 400 MG TABLET PO SCH ×3 (08:15→20:06)
[2019-06-01] MEDS: CHOLECALCIFEROL (VITAMIN D3) 1,000 UNIT TABLET PO SCH (08:15)
[2019-06-01] MEDS: LISINOPRIL 10 MG TABLET PO SCH (08:15)
[2019-06-01] MEDS: ASPIRIN 81 MG TAB.CHEW PO SCH (08:15)
[2019-06-01] MEDS: QUEtiapine 25 MG TABLET. PO SCH (13:09)
[2019-06-01 16:19] VITALS: BP 130/80
[2019-06-01] MEDS: FAMOTIDINE 20 MG TABLET PO SCH (20:06)
[2019-06-01] MEDS: QUEtiapine 100 MG TABLET. PO SCH (20:06)
[2019-06-01] MEDS: ATORVASTATIN CALCIUM 10 MG TABLET. PO SCH (20:06)
[2019-06-01] MEDS: PRAZOSIN 1 MG CAPSULE. PO SCH (20:06)
[2019-06-01] MEDS: INSULIN GLARGINE SYRINGE. SQ SCH (21:00)
--- NOTE | 2019-06-01 21:03 | PDOC ---
Exam Note: [place] Note: Please also refer to the separate dictated note~for this date of service dictated separately.~Patient seen individually. Discussed the patient with Nursing staff reviewed the chart.~Reviewed interim history and current functioning. Reviewed vital signs,~Labs/ Radiology~and current medications noted below. Continue current treatment with the changes noted in the dictated addendum note Assessment: Vital Signs/I&O: Vital Signs Date Time Temp Pulse Resp B/P (MAP) Pulse Ox O2 Delivery O2 Flow Rate FiO2 06/01/19 20:06 87 130/80 06/01/19 16:19 98.0 16 99 Room Air I & O 05/31/19 05/31/19 06/01/19 15:00 23:00 07:00 Intake Total 720 ml 1080 ml Balance 720 ml 1080 ml Labs: Laboratory Tests Test 06/01/19 07:38 06/01/19 07:55 06/01/19 11:29 06/01/19 16:52 Glucose (Fingerstick) 43 mg/dL (70-99) L 87 mg/dL (70-99) 216 mg/dL (70-99) H 109 mg/dL (70-99) H Test 06/01/19 19:16 Glucose (Fingerstick) 94 mg/dL (70-99) Current Medications: I have reviewed the current psychotropics carefully including drug interactions. Risk benefit ratio favors no change other than as noted in my dictated progress note. Diagnosis: Problems: (1) Anxiety disorder (2) Dementia in Alzheimer's disease with delusions (3) Dementia in Alzheimer's disease with depression (4) Dementia, vascular, with delusions (5) Dementia, vascular, with depression (6) Impulse control disorder ABIGAIL HORNE MD Jun 01, 2019 21:03
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
[2019-06-02 05:21] VITALS: BP 164/84
[2019-06-02 06:44] LABS: BASO % 1 % (0-3); EOS # 0.1 x10^3/uL (0.0-0.7); EOS % 3 % (0-3); HEMATOCRIT 35.8 % (39.0-53.0); HEMOGLOBIN 11.3 g/dL (13.0-17.5); LYMPH # 1.8 x10^3/uL (1.0-4.8); LYMPH % 37 % (24-48); MEAN CORPUSCULAR HEMOGLOBIN 28 pg (25-35); MEAN CORPUSCULAR HGB CONC 32 g/dL (31-37); MEAN CORPUSCULAR VOLUME 88 fL (79-100); MONO # 0.6 x10^3/uL (0.0-1.1); MONO % 12 % (0-9); NEUT # 2.4 x10^3uL (1.8-7.7); NEUT % 47 % (31-73); PLATELET COUNT 253 x10^3/uL (140-400); RED BLOOD COUNT 4.06 x10^6/uL (4.30-5.70); RED CELL DISTRIBUTION WIDTH 14.9 % (11.5-14.5)
[2019-06-02 07:02] LABS: ALBUMIN 2.7 g/dL (3.4-5.0); ALBUMIN/GLOBULIN RATIO 0.7 (1.0-1.7); ALK PHOS 47 U/L (46-116); ALT (SGPT) 15 U/L (16-63); ANION GAP 5 (6-14); AST (SGOT) 11 U/L (15-37); BLOOD UREA NITROGEN 15 mg/dL (8-26); BUN/CREATININE RATIO 15 (6-20); CALCIUM 8.6 mg/dL (8.5-10.1); CARBON DIOXIDE 31 mmol/L (21-32); CHLORIDE 105 mmol/L (98-107); GFR 88.6; GLUCOSE 107 mg/dL (70-99); POTASSIUM 4.1 mmol/L (3.5-5.1); SODIUM 141 mmol/L (136-145); TOTAL BILIRUBIN 0.3 mg/dL (0.2-1.0); TOTAL PROTEIN 6.7 g/dL (6.4-8.2)
[2019-06-02 07:10] LABS: VAL ACID 48 mcg/mL (50-100)
[2019-06-02] MEDS: medroxyPROGESTERone 5 MG TABLET PO SCH (08:55)
[2019-06-02] MEDS: metFORMIN XR 500 MG TAB.ER.24H PO SCH ×2 (08:56→17:43)
[2019-06-02] MEDS: DIVALPROEX 125 MG CAP.SPRINK PO SCH ×2 (08:56→20:30)
[2019-06-02] MEDS: ACETAMINOPHEN 500 MG TABLET PO SCH ×2 (08:57→20:30)
[2019-06-02] MEDS: CHOLECALCIFEROL (VITAMIN D3) 1,000 UNIT TABLET PO SCH (08:57)
[2019-06-02] MEDS: FOLIC ACID 1 MG TABLET PO SCH (08:57)
[2019-06-02] MEDS: QUEtiapine 50 MG TABLET. PO SCH (08:57)
[2019-06-02] MEDS: CYANOCOBALAMIN (VITAMIN B-12) 1,000 MCG TABLET. PO SCH (08:57)
[2019-06-02] MEDS: MULTIVITAMIN with MINERAL TABLET. PO SCH (08:57)
[2019-06-02] MEDS: POTASSIUM CHLORIDE 20 MEQ TABLET.ER. PO SCH (08:57)
[2019-06-02] MEDS: ASPIRIN 81 MG TAB.CHEW PO SCH (08:57)
[2019-06-02] MEDS: MAGNESIUM OXIDE 400 MG TABLET PO SCH ×3 (08:57→20:32)
[2019-06-02] MEDS: SERTRALINE 100 MG TABLET. PO SCH (08:57)
[2019-06-02] MEDS: LISINOPRIL 10 MG TABLET PO SCH (08:58)
[2019-06-02] MEDS: FLUTICASONE 50MCG/NASAL SPRAY 16GM BOTTLE. NS SCH (09:00)
[2019-06-02] MEDS: INSULIN LISPRO 300 UNITS/3 ML VIAL. SQ SCH ×3 (09:06→17:45)
[2019-06-02] MEDS: QUEtiapine 25 MG TABLET. PO SCH (13:43)
[2019-06-02 16:03] VITALS: BP 174/99
[2019-06-02] MEDS: PRAZOSIN 1 MG CAPSULE. PO SCH (20:31)
[2019-06-02] MEDS: hydrOXYzine HCL 25 MG TABLET PO PRN (20:31)
[2019-06-02] MEDS: FAMOTIDINE 20 MG TABLET PO SCH (20:32)
[2019-06-02] MEDS: QUEtiapine 100 MG TABLET. PO SCH (20:32)
[2019-06-02] MEDS: ATORVASTATIN CALCIUM 10 MG TABLET. PO SCH (20:32)
[2019-06-02] MEDS: INSULIN GLARGINE SYRINGE. SQ SCH (20:35)
--- NOTE | 2019-06-02 20:58 | PDOC ---
Exam Note: [place] Note: Please also refer to the separate dictated note~for this date of service dictated separately.~Patient seen individually. Discussed the patient with Nursing staff reviewed the chart.~Reviewed interim history and current functioning. Reviewed vital signs,~Labs/ Radiology~and current medications noted below. Continue current treatment with the changes noted in the dictated addendum note Assessment: Vital Signs/I&O: Vital Signs Date Time Temp Pulse Resp B/P (MAP) Pulse Ox O2 Delivery O2 Flow Rate FiO2 06/02/19 20:31 97 174/99 06/02/19 16:03 20 98 06/02/19 05:21 98.2 Room Air I & O 06/01/19 06/01/19 06/02/19 14:59 22:59 06:59 Intake Total 1080 ml 1080 ml Balance 1080 ml 1080 ml Labs: Laboratory Tests Test 06/02/19 06:19 06/02/19 07:45 06/02/19 12:02 06/02/19 17:32 White Blood Count 5.0 x10^3/uL (4.0-11.0) Red Blood Count 4.06 x10^6/uL (4.30-5.70) L Hemoglobin 11.3 g/dL (13.0-17.5) L Hematocrit 35.8 % (39.0-53.0) L Mean Corpuscular Volume 88 fL (79-100) Mean Corpuscular Hemoglobin 28 pg (25-35) Mean Corpuscular Hemoglobin Concent 32 g/dL (31-37) Red Cell Distribution Width 14.9 % (11.5-14.5) H Platelet Count 253 x10^3/uL (140-400) Neutrophils (%) (Auto) 47 % (31-73) Lymphocytes (%) (Auto) 37 % (24-48) Monocytes (%) (Auto) 12 % (0-9) H Eosinophils (%) (Auto) 3 % (0-3) Basophils (%) (Auto) 1 % (0-3) Neutrophils # (Auto) 2.4 x10^3uL (1.8-7.7) Lymphocytes # (Auto) 1.8 x10^3/uL (1.0-4.8) Monocytes # (Auto) 0.6 x10^3/uL (0.0-1.1) Eosinophils # (Auto) 0.1 x10^3/uL (0.0-0.7) Basophils # (Auto) 0.0 x10^3/uL (0.0-0.2) Sodium Level 141 mmol/L (136-145) Potassium Level 4.1 mmol/L (3.5-5.1) Chloride Level 105 mmol/L (98-107) Carbon Dioxide Level 31 mmol/L (21-32) Anion Gap 5 (6-14) L Blood Urea Nitrogen 15 mg/dL (8-26) Creatinine 1.0 mg/dL (0.7-1.3) Estimated GFR (Cockcroft-Gault) 88.6 BUN/Creatinine Ratio 15 (6-20) Glucose Level 107 mg/dL (70-99) H Calcium Level 8.6 mg/dL (8.5-10.1) Total Bilirubin 0.3 mg/dL (0.2-1.0) Aspartate Amino Transferase (AST) 11 U/L (15-37) L Alanine Aminotransferase (ALT) 15 U/L (16-63) L Alkaline Phosphatase 47 U/L (46-116) Total Protein 6.7 g/dL (6.4-8.2) Albumin 2.7 g/dL (3.4-5.0) L Albumin/Globulin Ratio 0.7 (1.0-1.7) L Valproic Acid Level 48 mcg/mL (50-100) L Valproic Acid Last Dose Date 06/01/19 Valproic Acid Last Dose Time 1700 Glucose (Fingerstick) 106 mg/dL (70-99) H 103 mg/dL (70-99) H 122 mg/dL (70-99) H Test 06/02/19 19:02 Glucose (Fingerstick) 108 mg/dL (70-99) H Current Medications: Meds: Current Medications Medications (Trade) Dose Ordered Sig/Samaria Route PRN Reason Start Time Stop Time Status Last Admin Dose Admin Divalproex Sodium (Depakote Sprinkles) 625 mg BID PO 06/02/19 21:00 06/02/19 20:30 I have reviewed the current psychotropics carefully including drug interactions. Risk benefit ratio favors no change other than as noted in my dictated progress note. Diagnosis: Problems: (1) Anxiety disorder (2) Dementia in Alzheimer's disease with delusions (3) Dementia in Alzheimer's disease with depression (4) Dementia, vascular, with delusions (5) Dementia, vascular, with depression (6) Impulse control disorder ABIGAIL HORNE MD Jun 02, 2019 20:58
--- NOTE | 2019-06-02 23:24 | PN ---
DATE: 06/01/2019 PSYCHIATRIC PROGRESS NOTE This late entry 06/01/2019 covers elements not covered in my initial note. SUBJECTIVE: I met with the patient evening of 06/01/2019. Per Rina RN, the patient slept 7 hours previous night. He has had some sexually inappropriate verbalizations towards nursing staff, but less so than before. He was better after he received his meds. At one point, he was looking at the floor asking "What's that puppy doing" and there was no puppy there. He has had no aggression with the other demented patient who he has been aggressive towards. REVIEW OF SYSTEMS: No CV, , PULMONARY, EYE, ENT system symptoms on review. MENTAL STATUS EXAM: Oriented to himself. Insight, judgment, recent and remote memory, attention, concentration, fund of knowledge poor, consistent with his diagnosis. IMPRESSION: Major neurocognitive disorder; Alzheimer, vascular with delusion, depression, behavioral disturbance; anxiety disorder, unspecified; impulse control disorder, unspecified; post-traumatic stress disorder. Rest unchanged. PLAN: No change from initial note. Check labs level on the . Adjust Depakote thereafter to reach therapeutic level. Rest unchanged. MAN Louie HORNE MD DR: MINOO/parul JOB#: [id number] / [id number]
[2019-06-03 06:49] VITALS: BP 138/87
[2019-06-03] MEDS: QUEtiapine 50 MG TABLET. PO SCH (07:51)
[2019-06-03] MEDS: medroxyPROGESTERone 5 MG TABLET PO SCH (07:51)
[2019-06-03] MEDS: metFORMIN XR 500 MG TAB.ER.24H PO SCH ×2 (07:51→17:56)
[2019-06-03] MEDS: DIVALPROEX 125 MG CAP.SPRINK PO SCH ×2 (07:52→20:24)
[2019-06-03] MEDS: MULTIVITAMIN with MINERAL TABLET. PO SCH (07:52)
[2019-06-03] MEDS: ACETAMINOPHEN 500 MG TABLET PO SCH ×2 (07:52→20:23)
[2019-06-03] MEDS: FOLIC ACID 1 MG TABLET PO SCH (07:52)
[2019-06-03] MEDS: MAGNESIUM OXIDE 400 MG TABLET PO SCH ×3 (07:52→20:24)
[2019-06-03] MEDS: ASPIRIN 81 MG TAB.CHEW PO SCH (07:52)
[2019-06-03] MEDS: CHOLECALCIFEROL (VITAMIN D3) 1,000 UNIT TABLET PO SCH (07:53)
[2019-06-03] MEDS: POTASSIUM CHLORIDE 20 MEQ TABLET.ER. PO SCH (07:53)
[2019-06-03] MEDS: SERTRALINE 100 MG TABLET. PO SCH (07:53)
[2019-06-03] MEDS: CYANOCOBALAMIN (VITAMIN B-12) 1,000 MCG TABLET. PO SCH (07:53)
[2019-06-03] MEDS: LISINOPRIL 10 MG TABLET PO SCH (07:53)
[2019-06-03] MEDS: INSULIN LISPRO 300 UNITS/3 ML VIAL. SQ SCH ×3 (07:59→18:01)
[2019-06-03] MEDS: FLUTICASONE 50MCG/NASAL SPRAY 16GM BOTTLE. NS SCH (09:00)
[2019-06-03] MEDS: QUEtiapine 25 MG TABLET. PO SCH (14:21)
[2019-06-03 16:21] VITALS: BP 166/83
[2019-06-03] MEDS: PRAZOSIN 1 MG CAPSULE. PO SCH (20:23)
[2019-06-03] MEDS: QUEtiapine 100 MG TABLET. PO SCH (20:23)
[2019-06-03] MEDS: ATORVASTATIN CALCIUM 10 MG TABLET. PO SCH (20:24)
[2019-06-03] MEDS: FAMOTIDINE 20 MG TABLET PO SCH (20:24)
[2019-06-03] MEDS: INSULIN GLARGINE SYRINGE. SQ SCH (20:34)
--- NOTE | 2019-06-03 21:08 | PDOC ---
Exam Note: Hamlet Note: Please also refer to the separate dictated note~for this date of service dictated separately.~Patient seen individually. Discussed the patient with Nursing staff reviewed the chart.~Reviewed interim history and current functioning. Reviewed vital signs,~Labs/ Radiology~and current medications noted below. Continue current treatment with the changes noted in the dictated addendum note Assessment: Vital Signs/I&O: Vital Signs Date Time Temp Pulse Resp B/P (MAP) Pulse Ox O2 Delivery O2 Flow Rate FiO2 06/03/19 20:23 79 166/83 06/03/19 16:21 98.5 18 97 06/03/19 06:49 Room Air I & O 06/02/19 06/02/19 06/03/19 15:00 23:00 07:00 Intake Total 960 ml 600 ml Balance 960 ml 600 ml Labs: Laboratory Tests Test 06/03/19 07:27 06/03/19 11:39 06/03/19 17:19 06/03/19 19:08 Glucose (Fingerstick) 126 mg/dL (70-99) H 184 mg/dL (70-99) H 119 mg/dL (70-99) H 146 mg/dL (70-99) H Current Medications: Meds: Current Medications Medications (Trade) Dose Ordered Sig/Samaria Route PRN Reason Start Time Stop Time Status Last Admin Dose Admin Prazosin HCl (Minipress) 4 mg HS PO 06/03/19 21:00 06/03/19 20:23 I have reviewed the current psychotropics carefully including drug interactions. Risk benefit ratio favors no change other than as noted in my dictated progress note. Diagnosis: Problems: (1) Anxiety disorder (2) Dementia in Alzheimer's disease with delusions (3) Dementia in Alzheimer's disease with depression (4) Dementia, vascular, with delusions (5) Dementia, vascular, with depression (6) Impulse control disorder ABIGAIL HORNE MD Jun 03, 2019 21:08
[2019-06-04 06:28] VITALS: BP 158/91
[2019-06-04] MEDS: metFORMIN XR 500 MG TAB.ER.24H PO SCH ×2 (09:04→18:00)
[2019-06-04] MEDS: DIVALPROEX 125 MG CAP.SPRINK PO SCH ×2 (09:04→19:45)
[2019-06-04] MEDS: ASPIRIN 81 MG TAB.CHEW PO SCH (09:05)
[2019-06-04] MEDS: CHOLECALCIFEROL (VITAMIN D3) 1,000 UNIT TABLET PO SCH (09:05)
[2019-06-04] MEDS: CYANOCOBALAMIN (VITAMIN B-12) 1,000 MCG TABLET. PO SCH (09:05)
[2019-06-04] MEDS: ACETAMINOPHEN 500 MG TABLET PO SCH ×2 (09:05→19:46)
[2019-06-04] MEDS: medroxyPROGESTERone 5 MG TABLET PO SCH (09:05)
[2019-06-04] MEDS: MULTIVITAMIN with MINERAL TABLET. PO SCH (09:05)
[2019-06-04] MEDS: MAGNESIUM OXIDE 400 MG TABLET PO SCH ×3 (09:05→19:45)
[2019-06-04] MEDS: FOLIC ACID 1 MG TABLET PO SCH (09:06)
[2019-06-04] MEDS: POTASSIUM CHLORIDE 20 MEQ TABLET.ER. PO SCH (09:06)
[2019-06-04] MEDS: LISINOPRIL 10 MG TABLET PO SCH (09:06)
[2019-06-04] MEDS: SERTRALINE 100 MG TABLET. PO SCH (09:06)
[2019-06-04] MEDS: QUEtiapine 50 MG TABLET. PO SCH (09:06)
[2019-06-04] MEDS: FLUTICASONE 50MCG/NASAL SPRAY 16GM BOTTLE. NS SCH (09:07)
[2019-06-04] MEDS: INSULIN LISPRO 300 UNITS/3 ML VIAL. SQ SCH ×3 (09:08→18:09)
[2019-06-04] MEDS: QUEtiapine 25 MG TABLET. PO SCH (14:44)
[2019-06-04 16:04] VITALS: BP 145/90
[2019-06-04] MEDS: QUEtiapine 100 MG TABLET. PO SCH (19:45)
[2019-06-04] MEDS: ATORVASTATIN CALCIUM 10 MG TABLET. PO SCH (19:45)
[2019-06-04] MEDS: FAMOTIDINE 20 MG TABLET PO SCH (19:46)
[2019-06-04] MEDS: PRAZOSIN 1 MG CAPSULE. PO SCH (19:46)
[2019-06-04] MEDS: INSULIN GLARGINE SYRINGE. SQ SCH (20:55)
--- NOTE | 2019-06-04 21:06 | PDOC ---
Exam Note: Hamlet Note: Please also refer to the separate dictated note~for this date of service dictated separately.~Patient seen individually. Discussed the patient with Nursing staff reviewed the chart.~Reviewed interim history and current functioning. Reviewed vital signs,~Labs/ Radiology~and current medications noted below. Continue current treatment with the changes noted in the dictated addendum note Assessment: Vital Signs/I&O: Vital Signs Date Time Temp Pulse Resp B/P (MAP) Pulse Ox O2 Delivery O2 Flow Rate FiO2 06/04/19 19:46 94 145/90 06/04/19 16:04 97.4 20 97 06/03/19 06:49 Room Air I & O 06/03/19 06/03/19 06/04/19 15:00 23:00 07:00 Intake Total 680 ml 100 ml 200 ml Balance 680 ml 100 ml 200 ml Labs: Laboratory Tests Test 06/04/19 07:09 06/04/19 11:37 06/04/19 16:34 06/04/19 19:11 Glucose (Fingerstick) 81 mg/dL (70-99) 128 mg/dL (70-99) H 140 mg/dL (70-99) H 126 mg/dL (70-99) H Current Medications: I have reviewed the current psychotropics carefully including drug interactions. Risk benefit ratio favors no change other than as noted in my dictated progress note. Diagnosis: Problems: (1) Anxiety disorder (2) Dementia in Alzheimer's disease with delusions (3) Dementia in Alzheimer's disease with depression (4) Dementia, vascular, with delusions (5) Dementia, vascular, with depression (6) Impulse control disorder ABIGAIL HORNE MD Jun 04, 2019 21:06
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
[2019-06-05 05:47] VITALS: BP 157/85
[2019-06-05 07:39] LABS: BASO % 0 % (0-3); EOS # 0.1 x10^3/uL (0.0-0.7); EOS % 2 % (0-3); HEMATOCRIT 35.3 % (39.0-53.0); HEMOGLOBIN 11.2 g/dL (13.0-17.5); LYMPH # 1.4 x10^3/uL (1.0-4.8); LYMPH % 24 % (24-48); MEAN CORPUSCULAR HEMOGLOBIN 28 pg (25-35); MEAN CORPUSCULAR HGB CONC 32 g/dL (31-37); MEAN CORPUSCULAR VOLUME 87 fL (79-100); MONO # 0.7 x10^3/uL (0.0-1.1); MONO % 11 % (0-9); NEUT # 3.8 x10^3uL (1.8-7.7); NEUT % 63 % (31-73); PLATELET COUNT 245 x10^3/uL (140-400); RED BLOOD COUNT 4.04 x10^6/uL (4.30-5.70); RED CELL DISTRIBUTION WIDTH 14.6 % (11.5-14.5)
[2019-06-05 07:57] LABS: ALBUMIN 2.7 g/dL (3.4-5.0); ALBUMIN/GLOBULIN RATIO 0.7 (1.0-1.7); ALK PHOS 44 U/L (46-116); ALT (SGPT) 14 U/L (16-63); ANION GAP 6 (6-14); AST (SGOT) 12 U/L (15-37); BLOOD UREA NITROGEN 15 mg/dL (8-26); BUN/CREATININE RATIO 14 (6-20); CALCIUM 8.2 mg/dL (8.5-10.1); CARBON DIOXIDE 31 mmol/L (21-32); CHLORIDE 105 mmol/L (98-107); CREATININE 1.1 mg/dL (0.7-1.3); GFR 79.4; GLUCOSE 72 mg/dL (70-99); POTASSIUM 3.7 mmol/L (3.5-5.1); SODIUM 142 mmol/L (136-145); TOTAL BILIRUBIN 0.3 mg/dL (0.2-1.0); TOTAL PROTEIN 6.5 g/dL (6.4-8.2)
[2019-06-05 08:36] LABS: VAL ACID 53 mcg/mL (50-100)
[2019-06-05] MEDS: INSULIN LISPRO 300 UNITS/3 ML VIAL. SQ SCH ×3 (09:16→17:16)
[2019-06-05] MEDS: DIVALPROEX 125 MG CAP.SPRINK PO SCH ×2 (09:16→20:26)
[2019-06-05] MEDS: FLUTICASONE 50MCG/NASAL SPRAY 16GM BOTTLE. NS SCH (09:16)
[2019-06-05] MEDS: metFORMIN XR 500 MG TAB.ER.24H PO SCH ×2 (09:16→17:15)
[2019-06-05] MEDS: ASPIRIN 81 MG TAB.CHEW PO SCH (09:16)
[2019-06-05] MEDS: MAGNESIUM OXIDE 400 MG TABLET PO SCH ×3 (09:17→20:43)
[2019-06-05] MEDS: FOLIC ACID 1 MG TABLET PO SCH (09:17)
[2019-06-05] MEDS: POTASSIUM CHLORIDE 20 MEQ TABLET.ER. PO SCH (09:17)
[2019-06-05] MEDS: CYANOCOBALAMIN (VITAMIN B-12) 1,000 MCG TABLET. PO SCH (09:18)
[2019-06-05] MEDS: SERTRALINE 100 MG TABLET. PO SCH (09:18)
[2019-06-05] MEDS: QUEtiapine 50 MG TABLET. PO SCH (09:18)
[2019-06-05] MEDS: medroxyPROGESTERone 5 MG TABLET PO SCH (09:18)
[2019-06-05] MEDS: LISINOPRIL 10 MG TABLET PO SCH (09:18)
[2019-06-05] MEDS: MULTIVITAMIN with MINERAL TABLET. PO SCH (09:18)
[2019-06-05] MEDS: CHOLECALCIFEROL (VITAMIN D3) 1,000 UNIT TABLET PO SCH (09:18)
[2019-06-05] MEDS: ACETAMINOPHEN 500 MG TABLET PO SCH ×2 (09:18→20:25)
[2019-06-05 11:45] LABS: % ATYL 1 % (0-0); % BANDS 1 % (0-9); % BASOS 1 % (0-3); % LYMPHS 22 % (24-48); % MONOS 14 % (0-10); % SEGS 61 % (35-66)
[2019-06-05 11:47] LABS: PLT ESTIMATE ADEQUATE (ADEQUATE)
[2019-06-05] MEDS: QUEtiapine 25 MG TABLET. PO SCH (13:18)
[2019-06-05 16:05] VITALS: BP 132/78
[2019-06-05] MEDS: PRAZOSIN 1 MG CAPSULE. PO SCH (20:25)
[2019-06-05] MEDS: QUEtiapine 100 MG TABLET. PO SCH (20:26)
[2019-06-05] MEDS: INSULIN GLARGINE SYRINGE. SQ SCH (20:43)
[2019-06-05] MEDS: ATORVASTATIN CALCIUM 10 MG TABLET. PO SCH (20:43)
[2019-06-05] MEDS: FAMOTIDINE 20 MG TABLET PO SCH (20:43)
--- NOTE | 2019-06-05 22:38 | PDOC ---
Exam Note: Hamlet Note: Please also refer to the separate dictated note~for this date of service dictated separately.~Patient seen individually. Discussed the patient with Nursing staff reviewed the chart.~Reviewed interim history and current functioning. Reviewed vital signs,~Labs/ Radiology~and current medications noted below. Continue current treatment with the changes noted in the dictated addendum note Assessment: Vital Signs/I&O: Vital Signs Date Time Temp Pulse Resp B/P (MAP) Pulse Ox O2 Delivery O2 Flow Rate FiO2 06/05/19 20:25 80 132/78 06/05/19 16:05 97.4 20 97 06/03/19 06:49 Room Air I & O 06/04/19 06/04/19 06/05/19 15:00 23:00 07:00 Intake Total 720 ml 0 ml 240 ml Balance 720 ml 0 ml 240 ml Labs: Laboratory Tests Test 06/05/19 07:22 06/05/19 07:23 06/05/19 08:48 06/05/19 11:39 White Blood Count 6.0 x10^3/uL (4.0-11.0) Red Blood Count 4.04 x10^6/uL (4.30-5.70) L Hemoglobin 11.2 g/dL (13.0-17.5) L Hematocrit 35.3 % (39.0-53.0) L Mean Corpuscular Volume 87 fL (79-100) Mean Corpuscular Hemoglobin 28 pg (25-35) Mean Corpuscular Hemoglobin Concent 32 g/dL (31-37) Red Cell Distribution Width 14.6 % (11.5-14.5) H Platelet Count 245 x10^3/uL (140-400) Neutrophils (%) (Auto) 63 % (31-73) Lymphocytes (%) (Auto) 24 % (24-48) Monocytes (%) (Auto) 11 % (0-9) H Eosinophils (%) (Auto) 2 % (0-3) Basophils (%) (Auto) 0 % (0-3) Neutrophils # (Auto) 3.8 x10^3uL (1.8-7.7) Lymphocytes # (Auto) 1.4 x10^3/uL (1.0-4.8) Monocytes # (Auto) 0.7 x10^3/uL (0.0-1.1) Eosinophils # (Auto) 0.1 x10^3/uL (0.0-0.7) Basophils # (Auto) 0.0 x10^3/uL (0.0-0.2) Segmented Neutrophils % 61 % (35-66) Band Neutrophils % 1 % (0-9) Lymphocytes % 22 % (24-48) L Atypical Lymphocytes % (Manual) 1 % (0-0) H Monocytes % 14 % (0-10) H Basophils % 1 % (0-3) Platelet Estimate Adequate (ADEQUATE) Sodium Level 142 mmol/L (136-145) Potassium Level 3.7 mmol/L (3.5-5.1) Chloride Level 105 mmol/L (98-107) Carbon Dioxide Level 31 mmol/L (21-32) Anion Gap 6 (6-14) Blood Urea Nitrogen 15 mg/dL (8-26) Creatinine 1.1 mg/dL (0.7-1.3) Estimated GFR (Cockcroft-Gault) 79.4 BUN/Creatinine Ratio 14 (6-20) Glucose Level 72 mg/dL (70-99) Calcium Level 8.2 mg/dL (8.5-10.1) L Total Bilirubin 0.3 mg/dL (0.2-1.0) Aspartate Amino Transferase (AST) 12 U/L (15-37) L Alanine Aminotransferase (ALT) 14 U/L (16-63) L Alkaline Phosphatase 44 U/L (46-116) L Ammonia < 10 mcmol/L (11-34) L Total Protein 6.5 g/dL (6.4-8.2) Albumin 2.7 g/dL (3.4-5.0) L Albumin/Globulin Ratio 0.7 (1.0-1.7) L Valproic Acid Level 53 mcg/mL (50-100) Valproic Acid Last Dose Date 06/04/19 Valproic Acid Last Dose Time 2100 Glucose (Fingerstick) 64 mg/dL (70-99) L 87 mg/dL (70-99) 182 mg/dL (70-99) H Test 06/05/19 17:08 06/05/19 19:08 Glucose (Fingerstick) 143 mg/dL (70-99) H 104 mg/dL (70-99) H Current Medications: I have reviewed the current psychotropics carefully including drug interactions. Risk benefit ratio favors no change other than as noted in my dictated progress note. Diagnosis: Problems: (1) Anxiety disorder (2) Dementia in Alzheimer's disease with delusions (3) Dementia in Alzheimer's disease with depression (4) Dementia, vascular, with delusions (5) Dementia, vascular, with depression (6) Impulse control disorder ABIGAIL HORNE MD Jun 05, 2019 22:37
[2019-06-06 05:57] VITALS: BP 145/83
[2019-06-06] MEDS: FLUTICASONE 50MCG/NASAL SPRAY 16GM BOTTLE. NS SCH (09:00)
[2019-06-06] MEDS: metFORMIN XR 500 MG TAB.ER.24H PO SCH ×2 (09:06→17:23)
[2019-06-06] MEDS: SERTRALINE 100 MG TABLET. PO SCH (09:07)
[2019-06-06] MEDS: CHOLECALCIFEROL (VITAMIN D3) 1,000 UNIT TABLET PO SCH (09:07)
[2019-06-06] MEDS: medroxyPROGESTERone 5 MG TABLET PO SCH (09:08)
[2019-06-06] MEDS: MAGNESIUM OXIDE 400 MG TABLET PO SCH ×3 (09:08→19:33)
[2019-06-06] MEDS: FOLIC ACID 1 MG TABLET PO SCH (09:08)
[2019-06-06] MEDS: LISINOPRIL 10 MG TABLET PO SCH (09:08)
[2019-06-06] MEDS: MULTIVITAMIN with MINERAL TABLET. PO SCH (09:08)
[2019-06-06] MEDS: ASPIRIN 81 MG TAB.CHEW PO SCH (09:08)
[2019-06-06] MEDS: CYANOCOBALAMIN (VITAMIN B-12) 1,000 MCG TABLET. PO SCH (09:08)
[2019-06-06] MEDS: ACETAMINOPHEN 500 MG TABLET PO SCH ×2 (09:08→19:33)
[2019-06-06] MEDS: POTASSIUM CHLORIDE 20 MEQ TABLET.ER. PO SCH (09:08)
[2019-06-06] MEDS: QUEtiapine 50 MG TABLET. PO SCH (09:08)
[2019-06-06] MEDS: PRAZOSIN 1 MG CAPSULE. PO SCH ×2 (09:09→19:34)
[2019-06-06] MEDS: DIVALPROEX 125 MG CAP.SPRINK PO SCH ×2 (09:09→19:34)
[2019-06-06] MEDS: INSULIN LISPRO 300 UNITS/3 ML VIAL. SQ SCH ×3 (09:19→17:21)
[2019-06-06] MEDS: QUEtiapine 25 MG TABLET. PO SCH (13:26)
[2019-06-06 16:17] VITALS: BP 136/80
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
[2019-06-06] MEDS: QUEtiapine 100 MG TABLET. PO SCH (19:32)
[2019-06-06] MEDS: FAMOTIDINE 20 MG TABLET PO SCH (19:33)
[2019-06-06] MEDS: ATORVASTATIN CALCIUM 10 MG TABLET. PO SCH (19:33)
[2019-06-06] MEDS: INSULIN GLARGINE SYRINGE. SQ SCH (19:55)
--- NOTE | 2019-06-06 20:55 | PDOC ---
Exam Note: [place] Note: Please also refer to the separate dictated note~for this date of service dictated separately.~Patient seen individually. Discussed the patient with Nursing staff reviewed the chart.~Reviewed interim history and current functioning. Reviewed vital signs,~Labs/ Radiology~and current medications noted below. Continue current treatment with the changes noted in the dictated addendum note Assessment: Vital Signs/I&O: Vital Signs Date Time Temp Pulse Resp B/P (MAP) Pulse Ox O2 Delivery O2 Flow Rate FiO2 06/06/19 19:34 85 136/80 06/06/19 16:17 97.4 22 96 06/03/19 06:49 Room Air I & O 06/05/19 06/05/19 06/06/19 15:00 23:00 07:00 Intake Total 600 ml Balance 600 ml Labs: Laboratory Tests Test 06/06/19 07:43 06/06/19 12:10 06/06/19 19:19 Glucose (Fingerstick) 125 mg/dL (70-99) H 120 mg/dL (70-99) H 178 mg/dL (70-99) H Current Medications: Meds: Current Medications Medications (Trade) Dose Ordered Sig/Samaria Route PRN Reason Start Time Stop Time Status Last Admin Dose Admin Prazosin HCl (Minipress) 1 mg DAILY PO 06/06/19 09:00 06/06/19 09:09 I have reviewed the current psychotropics carefully including drug interactions. Risk benefit ratio favors no change other than as noted in my dictated progress note. Diagnosis: Problems: (1) Anxiety disorder (2) Dementia in Alzheimer's disease with delusions (3) Dementia in Alzheimer's disease with depression (4) Dementia, vascular, with delusions (5) Dementia, vascular, with depression (6) Impulse control disorder ABGIAIL HORNE MD Jun 06, 2019 20:55
--- NOTE | 2019-06-07 00:18 | PN ---
DATE: 06/04/2019 PSYCHIATRIC PROGRESS NOTE This late entry 06/04/2019 covers the elements not covered in my initial note. SUBJECTIVE: I met with the patient in the evening of 06/04/2019. Per GREGORY Torres, the patient slept 7-3/4 hours previous night. He was agitated previous night with one of the other demented patients, who was quite intrusive. During the day on 06/04/2019, he was doing better per nursing report. REVIEW OF SYSTEMS: No sexually inappropriate behaviors. Labs are to be checked on 06/05/2019. REVIEW OF SYSTEMS: No CV, , pulmonary, eye, ENT system symptoms on review. Reliability poor. MENTAL STATUS EXAM: Oriented to himself. Insight, judgment, recent and remote memory, attention, concentration, fund of knowledge poor, consistent with his diagnosis. IMPRESSION: Major neurocognitive disorder, Alzheimer, vascular with delusion, depression, behavioral disturbance; anxiety disorder, unspecified; posttraumatic stress disorder, impulse control disorder. PLAN: Continue psychotropics from initial note, Prazosin, Zoloft, Seroquel, Zyprexa as p.r.n., Depakote, hydroxyzine and Provera 15 mg a day. ABIGAIL HORNE MD DR: MINOO/parul JOB#: [id number] / [id number]
[2019-06-07 06:12] VITALS: BP 153/85
[2019-06-07] MEDS: metFORMIN XR 500 MG TAB.ER.24H PO SCH ×2 (08:33→17:17)
[2019-06-07] MEDS: INSULIN LISPRO 300 UNITS/3 ML VIAL. SQ SCH ×3 (08:34→17:18)
[2019-06-07] MEDS: FLUTICASONE 50MCG/NASAL SPRAY 16GM BOTTLE. NS SCH (08:35)
[2019-06-07] MEDS: POTASSIUM CHLORIDE 20 MEQ TABLET.ER. PO SCH (08:36)
[2019-06-07] MEDS: FOLIC ACID 1 MG TABLET PO SCH (08:36)
[2019-06-07] MEDS: ASPIRIN 81 MG TAB.CHEW PO SCH (08:36)
[2019-06-07] MEDS: MAGNESIUM OXIDE 400 MG TABLET PO SCH ×3 (08:36→20:57)
[2019-06-07] MEDS: DIVALPROEX 125 MG CAP.SPRINK PO SCH ×2 (08:36→20:00)
[2019-06-07] MEDS: SERTRALINE 100 MG TABLET. PO SCH (08:37)
[2019-06-07] MEDS: MULTIVITAMIN with MINERAL TABLET. PO SCH (08:37)
[2019-06-07] MEDS: LISINOPRIL 10 MG TABLET PO SCH (08:37)
[2019-06-07] MEDS: medroxyPROGESTERone 5 MG TABLET PO SCH (08:37)
[2019-06-07] MEDS: PRAZOSIN 1 MG CAPSULE. PO SCH ×2 (08:37→19:59)
[2019-06-07] MEDS: CYANOCOBALAMIN (VITAMIN B-12) 1,000 MCG TABLET. PO SCH (08:37)
[2019-06-07] MEDS: CHOLECALCIFEROL (VITAMIN D3) 1,000 UNIT TABLET PO SCH (08:37)
[2019-06-07] MEDS: ACETAMINOPHEN 500 MG TABLET PO SCH ×2 (08:37→20:00)
[2019-06-07] MEDS: OLANZapine 2.5 MG TABLET PO SCH ×3 (08:38→20:01)
[2019-06-07 15:21] VITALS: BP 110/70
[2019-06-07] MEDS: MAGNESIUM HYDROXIDE 2,400 MG/30 ML ORAL.SUSP. PO PRN (17:17)
[2019-06-07] MEDS: FAMOTIDINE 20 MG TABLET PO SCH (20:00)
[2019-06-07] MEDS: INSULIN GLARGINE SYRINGE. SQ SCH (20:01)
[2019-06-07] MEDS: ATORVASTATIN CALCIUM 10 MG TABLET. PO SCH (20:57)
--- NOTE | 2019-06-07 21:40 | PDOC ---
Exam Note: [place] Note: Please also refer to the separate dictated note~for this date of service dictated separately.~Patient seen individually. Discussed the patient with Nursing staff reviewed the chart.~Reviewed interim history and current functioning. Reviewed vital signs,~Labs/ Radiology~and current medications noted below. Continue current treatment with the changes noted in the dictated addendum note Assessment: Vital Signs/I&O: Vital Signs Date Time Temp Pulse Resp B/P (MAP) Pulse Ox O2 Delivery O2 Flow Rate FiO2 06/07/19 19:59 76 110/70 06/07/19 15:21 98.3 18 97 06/03/19 06:49 Room Air I & O 06/06/19 06/06/19 06/07/19 15:00 23:00 07:00 Intake Total 360 ml 600 ml Balance 360 ml 600 ml Labs: Laboratory Tests Test 06/07/19 07:42 06/07/19 12:06 06/07/19 17:08 06/07/19 19:12 Glucose (Fingerstick) 119 mg/dL (70-99) H 73 mg/dL (70-99) 196 mg/dL (70-99) H 114 mg/dL (70-99) H Current Medications: Meds: Current Medications Medications (Trade) Dose Ordered Sig/Samaria Route PRN Reason Start Time Stop Time Status Last Admin Dose Admin Olanzapine (ZyPREXA) 2.5 mg 0900,1400 PO 06/07/19 09:00 06/07/19 13:41 Olanzapine (ZyPREXA) 7.5 mg HS PO 06/07/19 21:00 06/07/19 20:01 I have reviewed the current psychotropics carefully including drug interactions. Risk benefit ratio favors no change other than as noted in my dictated progress note. Diagnosis: Problems: (1) Anxiety disorder (2) Dementia in Alzheimer's disease with delusions (3) Dementia in Alzheimer's disease with depression (4) Dementia, vascular, with delusions (5) Dementia, vascular, with depression (6) Impulse control disorder ABIGAIL HORNE MD Jun 07, 2019 21:40
--- NOTE | 2019-06-08 01:48 | PN ---
DATE: 06/06/2019 PSYCHIATRIC PROGRESS NOTE This late entry 06/06/2019 covers elements not covered in my initial note. SUBJECTIVE: I met with the patient in the evening. Per GREGORY Piper, the patient slept 6-3/4 hours previous night. He has not been sexually inappropriate. He remains confused, but generally less reactive and less startled. REVIEW OF SYSTEMS: No CV, , pulmonary, eye, ENT system symptoms on review. Reliability poor. MENTAL STATUS EXAM: Oriented to himself. Insight, judgment, recent and remote memory, attention, concentration, fund of knowledge poor, consistent with his diagnosis mentioned in my initial note. PLAN: No change from initial note. MAN Louie HORNE MD DR: MINOO/parul JOB#: [id number] / [id number]
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
[2019-06-08 05:42] VITALS: BP 147/83
[2019-06-08] MEDS: FLUTICASONE 50MCG/NASAL SPRAY 16GM BOTTLE. NS SCH (09:13)
[2019-06-08] MEDS: metFORMIN XR 500 MG TAB.ER.24H PO SCH ×2 (09:14→18:14)
[2019-06-08] MEDS: POTASSIUM CHLORIDE 20 MEQ TABLET.ER. PO SCH ×3 (09:14→20:15)
[2019-06-08] MEDS: CHOLECALCIFEROL (VITAMIN D3) 1,000 UNIT TABLET PO SCH (09:14)
[2019-06-08] MEDS: ACETAMINOPHEN 500 MG TABLET PO SCH ×2 (09:14→20:16)
[2019-06-08] MEDS: SERTRALINE 100 MG TABLET. PO SCH (09:15)
[2019-06-08] MEDS: LISINOPRIL 10 MG TABLET PO SCH (09:15)
[2019-06-08] MEDS: PRAZOSIN 1 MG CAPSULE. PO SCH ×2 (09:15→20:16)
[2019-06-08] MEDS: medroxyPROGESTERone 5 MG TABLET PO SCH (09:15)
[2019-06-08] MEDS: DIVALPROEX 125 MG CAP.SPRINK PO SCH ×2 (09:16→20:14)
[2019-06-08] MEDS: ASPIRIN 81 MG TAB.CHEW PO SCH (09:16)
[2019-06-08] MEDS: MAGNESIUM OXIDE 400 MG TABLET PO SCH ×3 (09:16→20:16)
[2019-06-08] MEDS: FOLIC ACID 1 MG TABLET PO SCH (09:16)
[2019-06-08] MEDS: CYANOCOBALAMIN (VITAMIN B-12) 1,000 MCG TABLET. PO SCH (09:16)
[2019-06-08] MEDS: OLANZapine 2.5 MG TABLET PO SCH ×3 (09:16→20:16)
[2019-06-08] MEDS: MULTIVITAMIN with MINERAL TABLET. PO SCH (09:17)
[2019-06-08] MEDS: INSULIN LISPRO 300 UNITS/3 ML VIAL. SQ SCH ×3 (09:29→18:17)
[2019-06-08 16:00] VITALS: BP 132/84
[2019-06-08] MEDS: FAMOTIDINE 20 MG TABLET PO SCH (20:16)
[2019-06-08] MEDS: ATORVASTATIN CALCIUM 10 MG TABLET. PO SCH (20:16)
[2019-06-08] MEDS: INSULIN GLARGINE SYRINGE. SQ SCH (20:19)
--- NOTE | 2019-06-08 21:56 | PDOC ---
Exam Note: [place] Note: Please also refer to the separate dictated note~for this date of service dictated separately.~Patient seen individually. Discussed the patient with Nursing staff reviewed the chart.~Reviewed interim history and current functioning. Reviewed vital signs,~Labs/ Radiology~and current medications noted below. Continue current treatment with the changes noted in the dictated addendum note Assessment: Vital Signs/I&O: Vital Signs Date Time Temp Pulse Resp B/P (MAP) Pulse Ox O2 Delivery O2 Flow Rate FiO2 06/08/19 20:16 88 132/84 06/08/19 16:00 97.9 18 98 06/03/19 06:49 Room Air I & O 06/07/19 06/07/19 06/08/19 15:00 23:00 07:00 Intake Total 360 ml 480 ml Balance 360 ml 480 ml Labs: Laboratory Tests Test 06/08/19 07:20 06/08/19 12:01 06/08/19 18:08 06/08/19 19:23 Glucose (Fingerstick) 102 mg/dL (70-99) H 136 mg/dL (70-99) H 137 mg/dL (70-99) H 98 mg/dL (70-99) Current Medications: Meds: Current Medications Medications (Trade) Dose Ordered Sig/Samaria Route PRN Reason Start Time Stop Time Status Last Admin Dose Admin Potassium Chloride (Klor-Con) 20 meq BID PO 06/08/19 15:45 06/08/19 20:15 I have reviewed the current psychotropics carefully including drug interactions. Risk benefit ratio favors no change other than as noted in my dictated progress note. Diagnosis: Problems: (1) Anxiety disorder (2) Dementia in Alzheimer's disease with delusions (3) Dementia in Alzheimer's disease with depression (4) Dementia, vascular, with delusions (5) Dementia, vascular, with depression (6) Impulse control disorder ABIGAIL HORNE MD Jun 08, 2019 21:56
--- NOTE | 2019-06-09 00:31 | PN ---
DATE: 06/07/2019 PSYCHIATRIC PROGRESS NOTE This late entry 06/07/2019 covers elements not covered in my initial note. SUBJECTIVE: I met with the patient in the evening. Per Alix RN, the patient slept 7-1/2 hours previous night. He was agitated with one of the staff members. He gets easily overstimulated when there is noise around him and if there is a lot of activity around him. He did well in the west hallway with lower stimuli. No sexually inappropriate behaviors noted. REVIEW OF SYSTEMS: No CV, , pulmonary, eye, ENT system symptoms on review. Reliability poor. MENTAL STATUS EXAM: Oriented to himself. Insight, judgment, recent and remote memory, attention, concentration, fund of knowledge poor, consistent with his diagnosis. IMPRESSION: Major neurocognitive disorder, Alzheimer, vascular with delusion, depression, behavioral disturbance; anxiety disorder, unspecified; impulse control disorder, unspecified; posttraumatic stress disorder. Rest unchanged. PLAN: Continue prazosin, Zoloft, Seroquel, Depakote, and Provera at current dosage along with Zyprexa p.r.n. Valproic acid level is therapeutic at 53, may need to increase prazosin further if we see some of his over reactivity to stimuli around him persisting. ABIGAIL HORNE MD DR: MINOO/parul JOB#: [id number] / [id number]
[2019-06-09 06:27] VITALS: BP 141/68
[2019-06-09] MEDS: INSULIN LISPRO 300 UNITS/3 ML VIAL. SQ SCH ×3 (08:00→17:54)
[2019-06-09] MEDS: metFORMIN XR 500 MG TAB.ER.24H PO SCH ×2 (09:30→17:52)
[2019-06-09] MEDS: FUROSEMIDE 40 MG TABLET PO SCH (09:30)
[2019-06-09] MEDS: DIVALPROEX 125 MG CAP.SPRINK PO SCH ×2 (09:30→19:53)
[2019-06-09] MEDS: ASPIRIN 81 MG TAB.CHEW PO SCH (09:30)
[2019-06-09] MEDS: CHOLECALCIFEROL (VITAMIN D3) 1,000 UNIT TABLET PO SCH (09:30)
[2019-06-09] MEDS: ACETAMINOPHEN 500 MG TABLET PO SCH ×2 (09:30→19:54)
[2019-06-09] MEDS: OLANZapine 2.5 MG TABLET PO SCH ×3 (09:31→19:54)
[2019-06-09] MEDS: MAGNESIUM OXIDE 400 MG TABLET PO SCH ×3 (09:31→19:54)
[2019-06-09] MEDS: LISINOPRIL 10 MG TABLET PO SCH (09:31)
[2019-06-09] MEDS: MULTIVITAMIN with MINERAL TABLET. PO SCH (09:31)
[2019-06-09] MEDS: SERTRALINE 100 MG TABLET. PO SCH (09:31)
[2019-06-09] MEDS: medroxyPROGESTERone 5 MG TABLET PO SCH (09:32)
[2019-06-09] MEDS: PRAZOSIN 1 MG CAPSULE. PO SCH ×2 (09:32→19:53)
[2019-06-09] MEDS: FOLIC ACID 1 MG TABLET PO SCH (09:32)
[2019-06-09] MEDS: CYANOCOBALAMIN (VITAMIN B-12) 1,000 MCG TABLET. PO SCH (09:32)
[2019-06-09] MEDS: POTASSIUM CHLORIDE 20 MEQ TABLET.ER. PO SCH ×2 (09:32→19:54)
[2019-06-09] MEDS: FLUTICASONE 50MCG/NASAL SPRAY 16GM BOTTLE. NS SCH (09:33)
[2019-06-09 15:40] VITALS: BP 112/66
[2019-06-09] MEDS: MAGNESIUM HYDROXIDE 2,400 MG/30 ML ORAL.SUSP. PO PRN (17:52)
[2019-06-09] MEDS: FAMOTIDINE 20 MG TABLET PO SCH (19:53)
[2019-06-09] MEDS: ATORVASTATIN CALCIUM 10 MG TABLET. PO SCH (19:54)
[2019-06-09] MEDS: INSULIN GLARGINE SYRINGE. SQ SCH (19:55)
--- NOTE | 2019-06-09 21:58 | PDOC ---
Exam Note: [place] Note: Please also refer to the separate dictated note~for this date of service dictated separately.~Patient seen individually. Discussed the patient with Nursing staff reviewed the chart.~Reviewed interim history and current functioning. Reviewed vital signs,~Labs/ Radiology~and current medications noted below. Continue current treatment with the changes noted in the dictated addendum note Assessment: Vital Signs/I&O: Vital Signs Date Time Temp Pulse Resp B/P (MAP) Pulse Ox O2 Delivery O2 Flow Rate FiO2 06/09/19 19:53 93 112/66 06/09/19 15:40 98.9 20 98 I & O 06/08/19 06/08/19 06/09/19 15:00 23:00 07:00 Intake Total 600 ml 0 ml Balance 600 ml 0 ml Labs: Laboratory Tests Test 06/09/19 07:49 06/09/19 11:59 06/09/19 16:53 06/09/19 19:26 Glucose (Fingerstick) 64 mg/dL (70-99) L 98 mg/dL (70-99) 138 mg/dL (70-99) H 137 mg/dL (70-99) H Current Medications: Meds: Current Medications Medications (Trade) Dose Ordered Sig/Samaria Route PRN Reason Start Time Stop Time Status Last Admin Dose Admin Furosemide (Lasix) 40 mg DAILY PO 06/09/19 09:00 06/09/19 09:30 I have reviewed the current psychotropics carefully including drug interactions. Risk benefit ratio favors no change other than as noted in my dictated progress note. Diagnosis: Problems: (1) Anxiety disorder (2) Dementia in Alzheimer's disease with delusions (3) Dementia in Alzheimer's disease with depression (4) Dementia, vascular, with delusions (5) Dementia, vascular, with depression (6) Impulse control disorder ABIGAIL HORNE MD Jun 09, 2019 21:58
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
[2019-06-10 05:55] VITALS: BP 160/79
[2019-06-10] MEDS: FLUTICASONE 50MCG/NASAL SPRAY 16GM BOTTLE. NS SCH (09:00)
[2019-06-10] MEDS: OLANZapine 2.5 MG TABLET PO SCH ×3 (09:12→19:51)
[2019-06-10] MEDS: ASPIRIN 81 MG TAB.CHEW PO SCH (09:12)
[2019-06-10] MEDS: PRAZOSIN 1 MG CAPSULE. PO SCH ×3 (09:12→19:51)
[2019-06-10] MEDS: medroxyPROGESTERone 5 MG TABLET PO SCH (09:12)
[2019-06-10] MEDS: ACETAMINOPHEN 500 MG TABLET PO SCH ×2 (09:13→19:52)
[2019-06-10] MEDS: POTASSIUM CHLORIDE 20 MEQ TABLET.ER. PO SCH ×2 (09:13→19:52)
[2019-06-10] MEDS: FUROSEMIDE 40 MG TABLET PO SCH (09:13)
[2019-06-10] MEDS: CHOLECALCIFEROL (VITAMIN D3) 1,000 UNIT TABLET PO SCH (09:13)
[2019-06-10] MEDS: DIVALPROEX 125 MG CAP.SPRINK PO SCH ×2 (09:13→19:51)
[2019-06-10] MEDS: FOLIC ACID 1 MG TABLET PO SCH (09:14)
[2019-06-10] MEDS: CYANOCOBALAMIN (VITAMIN B-12) 1,000 MCG TABLET. PO SCH (09:14)
[2019-06-10] MEDS: SERTRALINE 100 MG TABLET. PO SCH (09:15)
[2019-06-10] MEDS: MULTIVITAMIN with MINERAL TABLET. PO SCH (09:15)
[2019-06-10] MEDS: MAGNESIUM OXIDE 400 MG TABLET PO SCH ×3 (09:15→19:52)
[2019-06-10] MEDS: LISINOPRIL 10 MG TABLET PO SCH (09:15)
[2019-06-10] MEDS: metFORMIN XR 500 MG TAB.ER.24H PO SCH ×2 (09:15→17:49)
[2019-06-10] MEDS: INSULIN LISPRO 300 UNITS/3 ML VIAL. SQ SCH ×3 (09:16→18:07)
[2019-06-10 15:57] VITALS: BP 107/71
[2019-06-10] MEDS: FAMOTIDINE 20 MG TABLET PO SCH (19:52)
[2019-06-10] MEDS: ATORVASTATIN CALCIUM 10 MG TABLET. PO SCH (19:52)
[2019-06-10] MEDS: DOCUSATE SODIUM 100 MG CAPSULE PO SCH (19:52)
[2019-06-10] MEDS: INSULIN GLARGINE SYRINGE. SQ SCH (19:57)
--- NOTE | 2019-06-10 21:29 | PDOC ---
Exam Note: Hamlet Note: Please also refer to the separate dictated note~for this date of service dictated separately.~Patient seen individually. Discussed the patient with Nursing staff reviewed the chart.~Reviewed interim history and current functioning. Reviewed vital signs,~Labs/ Radiology~and current medications noted below. Continue current treatment with the changes noted in the dictated addendum note Assessment: Vital Signs/I&O: Vital Signs Date Time Temp Pulse Resp B/P (MAP) Pulse Ox O2 Delivery O2 Flow Rate FiO2 06/10/19 19:51 99 107/71 06/10/19 15:57 98.1 20 98 Room Air I & O 06/09/19 06/09/19 06/10/19 15:00 23:00 07:00 Intake Total 720 ml 120 ml Balance 720 ml 120 ml Labs: Laboratory Tests Test 06/10/19 07:53 06/10/19 12:02 06/10/19 17:11 06/10/19 19:07 Glucose (Fingerstick) 88 mg/dL (70-99) 167 mg/dL (70-99) H 181 mg/dL (70-99) H 124 mg/dL (70-99) H Current Medications: Meds: Current Medications Medications (Trade) Dose Ordered Sig/[place] Route PRN Reason Start Time Stop Time Status Last Admin Dose Admin Prazosin HCl (Minipress) 1 mg 1300 PO 06/10/19 13:00 06/10/19 13:45 Docusate Sodium (Colace) 100 mg BID PO 06/10/19 21:00 06/10/19 19:52 I have reviewed the current psychotropics carefully including drug interactions. Risk benefit ratio favors no change other than as noted in my dictated progress note. Diagnosis: Problems: (1) Anxiety disorder (2) Dementia in Alzheimer's disease with delusions (3) Dementia in Alzheimer's disease with depression (4) Dementia, vascular, with delusions (5) Dementia, vascular, with depression (6) Impulse control disorder ABIGAIL HORNE MD Jun 10, 2019 21:29
[2019-06-11 06:31] VITALS: BP 115/78
[2019-06-11] MEDS: POLYETHYLENE GLYCOL 3350 17 GM PACKET. PO SCH (08:34)
[2019-06-11] MEDS: medroxyPROGESTERone 5 MG TABLET PO SCH (08:34)
[2019-06-11] MEDS: POTASSIUM CHLORIDE 20 MEQ TABLET.ER. PO SCH ×3 (08:35→20:10)
[2019-06-11] MEDS: FUROSEMIDE 40 MG TABLET PO SCH (08:35)
[2019-06-11] MEDS: CYANOCOBALAMIN (VITAMIN B-12) 1,000 MCG TABLET. PO SCH ×2 (08:35→09:00)
[2019-06-11] MEDS: PRAZOSIN 1 MG CAPSULE. PO SCH ×3 (08:35→20:10)
[2019-06-11] MEDS: OLANZapine 2.5 MG TABLET PO SCH ×3 (08:35→20:10)
[2019-06-11] MEDS: DIVALPROEX 125 MG CAP.SPRINK PO SCH ×2 (08:36→20:11)
[2019-06-11] MEDS: DOCUSATE SODIUM 100 MG CAPSULE PO SCH ×2 (08:36→20:11)
[2019-06-11] MEDS: ACETAMINOPHEN 500 MG TABLET PO SCH ×2 (08:36→20:11)
[2019-06-11] MEDS: MULTIVITAMIN with MINERAL TABLET. PO SCH ×2 (08:36→09:00)
[2019-06-11] MEDS: SERTRALINE 100 MG TABLET. PO SCH (08:36)
[2019-06-11] MEDS: MAGNESIUM OXIDE 400 MG TABLET PO SCH ×4 (08:36→20:10)
[2019-06-11] MEDS: ASPIRIN 81 MG TAB.CHEW PO SCH (08:36)
[2019-06-11] MEDS: FOLIC ACID 1 MG TABLET PO SCH (08:36)
[2019-06-11] MEDS: LISINOPRIL 10 MG TABLET PO SCH (08:36)
[2019-06-11] MEDS: metFORMIN XR 500 MG TAB.ER.24H PO SCH ×2 (08:36→17:34)
[2019-06-11] MEDS: CHOLECALCIFEROL (VITAMIN D3) 1,000 UNIT TABLET PO SCH ×2 (08:36→09:00)
[2019-06-11] MEDS: INSULIN LISPRO 300 UNITS/3 ML VIAL. SQ SCH ×3 (08:44→17:34)
[2019-06-11] MEDS: FLUTICASONE 50MCG/NASAL SPRAY 16GM BOTTLE. NS SCH (08:56)
--- NOTE | 2019-06-11 12:59 | PN ---
DATE: 06/09/2019 PSYCHIATRIC PROGRESS NOTE This late entry 06/09/2019 covers the elements not covered in my initial note. SUBJECTIVE: I met with the patient in the evening of 06/09/2019. Per GREGORY Torres, the patient slept 7-1/4 hours previous night. Previous evening, he was making some sexually inappropriate comments to other patients and during the day on 06/09/2019, muttering something under his breath sexually per nursing report. He was resistive to a.m. medications, better after that. REVIEW OF SYSTEMS: No CV, , pulmonary, eye, ENT system symptoms on review. Reliability poor. MENTAL STATUS EXAM: Oriented to himself. Insight, judgment, recent and remote memory, attention, concentration, fund of knowledge poor, consistent with his diagnosis. IMPRESSION: Major neurocognitive disorder, Alzheimer, vascular with delusion, depression, behavioral disturbance, PTSD; anxiety disorder, unspecified; impulse control disorder, unspecified. PLAN: Continue psychotropics from initial note. We may need to increase his daytime prazosin to help with his over-reactivity consequent to PTSD. Continue rest of the psychotropics unchanged. MAN Louie HORNE MD DR: MINOO/parul JOB#: [id number] / [id number]
[2019-06-11 15:40] VITALS: BP 102/67
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
[2019-06-11] MEDS: FAMOTIDINE 20 MG TABLET PO SCH (20:11)
[2019-06-11] MEDS: ATORVASTATIN CALCIUM 10 MG TABLET. PO SCH (20:11)
[2019-06-11] MEDS: INSULIN GLARGINE SYRINGE. SQ SCH (20:14)
--- NOTE | 2019-06-11 21:30 | PDOC ---
Exam Note: Hamlet Note: Please also refer to the separate dictated note~for this date of service dictated separately.~Patient seen individually. Discussed the patient with Nursing staff reviewed the chart.~Reviewed interim history and current functioning. Reviewed vital signs,~Labs/ Radiology~and current medications noted below. Continue current treatment with the changes noted in the dictated addendum note Assessment: Vital Signs/I&O: Vital Signs Date Time Temp Pulse Resp B/P (MAP) Pulse Ox O2 Delivery O2 Flow Rate FiO2 06/11/19 20:10 81 133/78 06/11/19 15:40 98.0 20 99 06/10/19 15:57 Room Air I & O 06/10/19 06/10/19 06/11/19 15:00 23:00 07:00 Intake Total 1080 ml 240 ml 240 ml Balance 1080 ml 240 ml 240 ml Labs: Laboratory Tests Test 06/11/19 07:18 06/11/19 11:58 06/11/19 16:25 06/11/19 19:14 Glucose (Fingerstick) 111 mg/dL (70-99) H 116 mg/dL (70-99) H 128 mg/dL (70-99) H 233 mg/dL (70-99) H Current Medications: Meds: Current Medications Medications (Trade) Dose Ordered Sig/[place] Route PRN Reason Start Time Stop Time Status Last Admin Dose Admin Polyethylene Glycol (miraLAX) 17 gm DAILY PO 06/11/19 09:00 06/11/19 08:34 I have reviewed the current psychotropics carefully including drug interactions. Risk benefit ratio favors no change other than as noted in my dictated progress note. Diagnosis: Problems: (1) Anxiety disorder (2) Dementia in Alzheimer's disease with delusions (3) Dementia in Alzheimer's disease with depression (4) Dementia, vascular, with delusions (5) Dementia, vascular, with depression (6) Impulse control disorder ABIGAIL HORNE MD Jun 11, 2019 21:30
[2019-06-12 05:22] VITALS: BP 150/82
[2019-06-12] MEDS: INSULIN LISPRO 300 UNITS/3 ML VIAL. SQ SCH ×3 (08:00→17:00)
[2019-06-12] MEDS: FLUTICASONE 50MCG/NASAL SPRAY 16GM BOTTLE. NS SCH (09:00)
[2019-06-12] MEDS: PRAZOSIN 1 MG CAPSULE. PO SCH ×3 (09:08→20:50)
[2019-06-12] MEDS: ASPIRIN 81 MG TAB.CHEW PO SCH (09:08)
[2019-06-12] MEDS: metFORMIN XR 500 MG TAB.ER.24H PO SCH ×2 (09:09→17:00)
[2019-06-12] MEDS: ACETAMINOPHEN 500 MG TABLET PO SCH ×2 (09:09→20:48)
[2019-06-12] MEDS: MAGNESIUM OXIDE 400 MG TABLET PO SCH ×3 (09:09→20:49)
[2019-06-12] MEDS: OLANZapine 2.5 MG TABLET PO SCH ×3 (09:09→20:50)
[2019-06-12] MEDS: SERTRALINE 100 MG TABLET. PO SCH (09:10)
[2019-06-12] MEDS: LISINOPRIL 10 MG TABLET PO SCH (09:11)
[2019-06-12] MEDS: DOCUSATE SODIUM 100 MG CAPSULE PO SCH ×2 (09:11→20:49)
[2019-06-12] MEDS: CYANOCOBALAMIN (VITAMIN B-12) 1,000 MCG TABLET. PO SCH (09:11)
[2019-06-12] MEDS: DIVALPROEX 125 MG CAP.SPRINK PO SCH ×2 (09:11→20:49)
[2019-06-12] MEDS: CHOLECALCIFEROL (VITAMIN D3) 1,000 UNIT TABLET PO SCH (09:11)
[2019-06-12] MEDS: MULTIVITAMIN with MINERAL TABLET. PO SCH (09:11)
[2019-06-12] MEDS: FOLIC ACID 1 MG TABLET PO SCH (09:12)
[2019-06-12] MEDS: FUROSEMIDE 40 MG TABLET PO SCH (09:12)
[2019-06-12] MEDS: medroxyPROGESTERone 5 MG TABLET PO SCH (09:12)
[2019-06-12] MEDS: POTASSIUM CHLORIDE 20 MEQ TABLET.ER. PO SCH ×2 (09:13→20:49)
[2019-06-12] MEDS: POLYETHYLENE GLYCOL 3350 17 GM PACKET. PO SCH (09:13)
[2019-06-12 10:26] LABS: BASO % 0 % (0-3); EOS # 0.1 x10^3/uL (0.0-0.7); EOS % 3 % (0-3); HEMOGLOBIN 12.9 g/dL (13.0-17.5); LYMPH # 1.5 x10^3/uL (1.0-4.8); LYMPH % 33 % (24-48); MEAN CORPUSCULAR HEMOGLOBIN 28 pg (25-35); MEAN CORPUSCULAR HGB CONC 31 g/dL (31-37); MEAN CORPUSCULAR VOLUME 89 fL (79-100); MONO # 0.5 x10^3/uL (0.0-1.1); MONO % 11 % (0-9); NEUT # 2.4 x10^3uL (1.8-7.7); NEUT % 53 % (31-73); PLATELET COUNT 224 x10^3/uL (140-400); RED BLOOD COUNT 4.63 x10^6/uL (4.30-5.70); RED CELL DISTRIBUTION WIDTH 15.2 % (11.5-14.5); WHITE BLOOD COUNT 4.6 x10^3/uL (4.0-11.0)
[2019-06-12 10:42] LABS: ALBUMIN 2.9 g/dL (3.4-5.0); ALBUMIN/GLOBULIN RATIO 0.7 (1.0-1.7); CALCIUM 8.7 mg/dL (8.5-10.1); CREATININE 1.2 mg/dL (0.7-1.3); GFR 71.8; POTASSIUM 4.2 mmol/L (3.5-5.1); TOTAL BILIRUBIN 0.2 mg/dL (0.2-1.0); TOTAL PROTEIN 7.1 g/dL (6.4-8.2)
[2019-06-12 15:21] VITALS: BP 128/79
[2019-06-12] MEDS ORDERED: IV NORMAL SALINE 500ML 500 ML IV ONE (18:15)
[2019-06-12 19:23] LABS: BASO % 0 % (0-3); EOS # 0.1 x10^3/uL (0.0-0.7); EOS % 2 % (0-3); HEMATOCRIT 38.1 % (39.0-53.0); LYMPH # 1.7 x10^3/uL (1.0-4.8); LYMPH % 31 % (24-48); MEAN CORPUSCULAR HEMOGLOBIN 28 pg (25-35); MEAN CORPUSCULAR HGB CONC 32 g/dL (31-37); MEAN CORPUSCULAR VOLUME 89 fL (79-100); MONO # 0.8 x10^3/uL (0.0-1.1); MONO % 14 % (0-9); NEUT # 2.8 x10^3uL (1.8-7.7); NEUT % 52 % (31-73); PLATELET COUNT 222 x10^3/uL (140-400); RED CELL DISTRIBUTION WIDTH 15.3 % (11.5-14.5); WHITE BLOOD COUNT 5.4 x10^3/uL (4.0-11.0)
[2019-06-12 19:28] LABS: ALBUMIN 3.2 g/dL (3.4-5.0); ALBUMIN/GLOBULIN RATIO 0.8 (1.0-1.7); CALCIUM 8.9 mg/dL (8.5-10.1); CREATININE 1.4 mg/dL (0.7-1.3); GFR 60.1; POTASSIUM 4.3 mmol/L (3.5-5.1); TOTAL BILIRUBIN 0.2 mg/dL (0.2-1.0); TOTAL PROTEIN 7.4 g/dL (6.4-8.2)
--- NOTE | 2019-06-12 19:42 | RAD ---
CT HEAD AND CERVICAL SPINE WO Date: 06/12/2019 6:14 PM Clinical Indication: Fall, pain Comparison: None. Technique: 5 mm axial tomographic images were obtained of the head without contrast. These were viewed on brain and bone windows. Noncontrast CT of the cervical spine was performed. Sagittal and coronal reformats were performed and evaluated. One or more of the following dose reduction techniques were utilized: Automated exposure control (AEC), Adjustment of mA and/or kV according to patient size, Use of iterative reconstruction technique such as ASiR, CT scan done according to ALARA and image gently/image wisely HEAD FINDINGS: Moderate generalized cerebral and cerebellar volume loss. Moderate nonspecific periventricular hypoattenuation, most commonly seen with chronic small vessel ischemic disease. Chronic left putamen lacunar infarct. No intra- or extra-axial mass or fluid collection. No acute hemorrhage. The ventricles are normal in size, shape, and morphology. The mtz-white matter junction is normal. The basilar cisterns are patent. Right maxillary sinus extension cyst. The visualized portions of the orbits and globes are normal. The mastoid air cells are clear. No aggressive osseous lesion or fracture. CERVICAL SPINE FINDINGS: Straightening of the cervical lordosis. No acute fracture. No aggressive lytic or blastic osseous lesions. Moderate multilevel degenerative disc space height loss. Multilevel mild spinal canal stenosis secondary to disc protrusions and marginal osteophytes. Multilevel mild and moderate neuroforaminal narrowing secondary to uncovertebral arthrosis. Multilevel moderate facet arthrosis. The thyroid gland is normal. No cervical lymphadenopathy. Bilateral carotid atherosclerosis. Poor dentition with multiple dental caries. The visualized portions of the lungs are clear. IMPRESSION: 1. No acute intracranial process. 2. No acute cervical spine fracture. 3. Poor dentition with multiple dental caries. Electronically signed by: Aram Schultz MD (06/12/2019 7:39 PM) [facility]
--- NOTE | 2019-06-12 19:45 | RAD ---
EXAM: HIPS BILATERAL 2 VIEWS WITH PELVIS. HISTORY: Fall. COMPARISON: None. FINDINGS: No fractures are identified. Joint space narrowing is moderate to severe at the left hip and mild at the right hip. Femoral head/neck offset is moderately decreased anteriorly bilaterally. A focus of heterotopic ossification in the left proximal thigh medially measures 5.5 cm in length and 1 cm short axis. IMPRESSION: 1. Hip osteoarthritis is moderate to severe on the left and mild on the right. Electronically signed by: Nadira Byrne MD (06/12/2019 7:42 PM) [facility]
[2019-06-12 20:44] VITALS: BP 145/75
[2019-06-12] MEDS: ATORVASTATIN CALCIUM 10 MG TABLET. PO SCH (20:50)
[2019-06-12] MEDS: FAMOTIDINE 20 MG TABLET PO SCH (20:50)
[2019-06-12] MEDS: INSULIN GLARGINE SYRINGE. SQ SCH (21:03)
--- NOTE | 2019-06-13 02:26 | EKG ---
[address] [address] Test Date: 2019-06-12 Test Time: 18:33:34 Pat Name: TOMÁS OSORIO Department: Room: [address] [place] [address] Gender: M Motion Picture Camera Operator: : 1945 Requested By: NATA CHE Order Number: [id number] Reading MD: Measurements Intervals [place] Rate: 72 P: 56 RI: 200 QRS: -26 QRSD: 74 T: 89 QT: 360 QTc: 396 Interpretive Statements SINUS RHYTHM LEFTWARD AXIS T ABNORMALITY IN HIGH LATERAL LEADS ABNORMAL ECG RI6.02 No previous ECG available for comparison
--- NOTE | 2019-06-13 02:48 | PN ---
DATE: 06/12/2019 SUBJECTIVE: The patient was seen today, met with the staff, chart reviewed and covering for Dr. Chiu. The patient is still confused, disorganized, but compliant with the treatments. The patient is complaining of feeling tired and weak, stays in bed most of the time. The patient also showed decreased psychomotor activity. Limited interaction with other residents. The patient is redirectable. OBSERVATION: VITAL SIGNS: Temperature 97.3, blood pressure 150/82, pulse 62, respirations 18, O2 sat 94%. Slept about 7-1/2 hours last night. The patient's appetite is fair. MEDICATIONS: The patient's current medications include prazosin 1 mg daily and 4 mg at night, olanzapine 7.5 mg at night and 2.5 mg b.i.d., Depakote 625 mg b.i.d. and olanzapine 5 mg q.i.d. p.r.n. The patient is not having any side effects to the medications. LABORATORY DATA: The patient's lab reviewed. The patient's glucose level fluctuates. ASSESSMENT: 1. Major neurocognitive disorder, Alzheimer's, vascular with delusions, depression and behavioral disturbances. 2. Anxiety disorder, unspecified. 3. Posttraumatic stress disorder. PLAN: To continue with the current treatment plan. LENGTH OF STAY: 5-7 days. SHANIKA HILL MD DR: RANDALL/parul JOB#: [id number] / [id number]
[2019-06-13 05:14] VITALS: BP 137/76
[2019-06-13] MEDS: PRAZOSIN 1 MG CAPSULE. PO SCH ×4 (07:58→19:47)
[2019-06-13] MEDS: DIVALPROEX 125 MG CAP.SPRINK PO SCH ×2 (07:58→19:48)
[2019-06-13] MEDS: SERTRALINE 100 MG TABLET. PO SCH (07:59)
[2019-06-13] MEDS: CYANOCOBALAMIN (VITAMIN B-12) 1,000 MCG TABLET. PO SCH (07:59)
[2019-06-13] MEDS: POTASSIUM CHLORIDE 20 MEQ TABLET.ER. PO SCH ×2 (07:59→19:49)
[2019-06-13] MEDS: metFORMIN XR 500 MG TAB.ER.24H PO SCH ×2 (07:59→17:00)
[2019-06-13] MEDS: DOCUSATE SODIUM 100 MG CAPSULE PO SCH ×2 (07:59→19:49)
[2019-06-13] MEDS: FUROSEMIDE 40 MG TABLET PO SCH (08:00)
[2019-06-13] MEDS: LISINOPRIL 10 MG TABLET PO SCH (08:00)
[2019-06-13] MEDS: ASPIRIN 81 MG TAB.CHEW PO SCH (08:00)
[2019-06-13] MEDS: MAGNESIUM OXIDE 400 MG TABLET PO SCH ×3 (08:00→19:49)
[2019-06-13] MEDS: medroxyPROGESTERone 5 MG TABLET PO SCH (08:00)
[2019-06-13] MEDS: OLANZapine 2.5 MG TABLET PO SCH ×3 (08:00→19:48)
[2019-06-13] MEDS: INSULIN LISPRO 300 UNITS/3 ML VIAL. SQ SCH ×3 (08:00→17:00)
[2019-06-13] MEDS: MULTIVITAMIN with MINERAL TABLET. PO SCH (08:00)
[2019-06-13] MEDS: ACETAMINOPHEN 500 MG TABLET PO SCH ×2 (08:00→19:47)
[2019-06-13] MEDS: CHOLECALCIFEROL (VITAMIN D3) 1,000 UNIT TABLET PO SCH (08:00)
[2019-06-13] MEDS: FOLIC ACID 1 MG TABLET PO SCH (08:00)
[2019-06-13] MEDS: POLYETHYLENE GLYCOL 3350 17 GM PACKET. PO SCH (08:01)
[2019-06-13] MEDS: FLUTICASONE 50MCG/NASAL SPRAY 16GM BOTTLE. NS SCH (08:35)
[2019-06-13 15:24] VITALS: BP 136/60
--- NOTE | 2019-06-13 16:02 | PN ---
DATE: 06/13/2019 SUBJECTIVE: The patient was seen today, met with the staff, chart reviewed. Staff reports the patient spends most of the time in bed, apparently he was able to go to the dining room for his lunch. The patient apparently fell once with no injuries. OBSERVATION: VITAL SIGNS: Temperature 98.7, blood pressure 137/76, pulse 75, respirations 20, O2 sat 96%. Slept about 7 hours last night. The patient apparently is taking several p.r.n. medications and also prazosin 4 mg daily. Apparently staff reports that the patient's blood pressure was low on several occasions. MEDICATIONS: The patient's current medications include olanzapine 7.5 mg at night and 2.5 mg b.i.d., prazosin 5 mg at night, Depakote 625 mg b.i.d., Zoloft 100 mg daily. The patient denies of any other side effects to the medications. ASSESSMENT: 1. Major neurocognitive disorder, most likely Alzheimer's, vascular with delusions, depression and behavioral disturbances. 2. Anxiety disorder, unspecified. 3. Posttraumatic stress disorder. PLAN: To continue with the current treatment plan. LENGTH OF STAY: 5-7 days. SHANIKA HILL MD DR: RANDALL/parul JOB#: [id number] / [id number]
[2019-06-13] MEDS: FAMOTIDINE 20 MG TABLET PO SCH (19:49)
[2019-06-13] MEDS: ATORVASTATIN CALCIUM 10 MG TABLET. PO SCH (19:49)
[2019-06-13] MEDS: INSULIN GLARGINE SYRINGE. SQ SCH (19:50)
[2019-06-14 06:45] VITALS: BP 157/88
[2019-06-14] MEDS: INSULIN LISPRO 300 UNITS/3 ML VIAL. SQ SCH ×3 (08:00→17:15)
[2019-06-14] MEDS: POLYETHYLENE GLYCOL 3350 17 GM PACKET. PO SCH (09:01)
[2019-06-14] MEDS: medroxyPROGESTERone 5 MG TABLET PO SCH (09:02)
[2019-06-14] MEDS: ASPIRIN 81 MG TAB.CHEW PO SCH (09:02)
[2019-06-14] MEDS: OLANZapine 2.5 MG TABLET PO SCH ×3 (09:02→20:41)
[2019-06-14] MEDS: FUROSEMIDE 40 MG TABLET PO SCH (09:02)
[2019-06-14] MEDS: DIVALPROEX 125 MG CAP.SPRINK PO SCH ×2 (09:03→20:43)
[2019-06-14] MEDS: SERTRALINE 100 MG TABLET. PO SCH (09:03)
[2019-06-14] MEDS: CYANOCOBALAMIN (VITAMIN B-12) 1,000 MCG TABLET. PO SCH (09:03)
[2019-06-14] MEDS: CHOLECALCIFEROL (VITAMIN D3) 1,000 UNIT TABLET PO SCH (09:03)
[2019-06-14] MEDS: MAGNESIUM OXIDE 400 MG TABLET PO SCH ×3 (09:03→20:43)
[2019-06-14] MEDS: DOCUSATE SODIUM 100 MG CAPSULE PO SCH ×2 (09:03→20:43)
[2019-06-14] MEDS: PRAZOSIN 1 MG CAPSULE. PO SCH ×2 (09:03→20:42)
[2019-06-14] MEDS: metFORMIN XR 500 MG TAB.ER.24H PO SCH ×2 (09:03→17:11)
[2019-06-14] MEDS: POTASSIUM CHLORIDE 20 MEQ TABLET.ER. PO SCH ×2 (09:04→20:42)
[2019-06-14] MEDS: MULTIVITAMIN with MINERAL TABLET. PO SCH (09:04)
[2019-06-14] MEDS: FOLIC ACID 1 MG TABLET PO SCH (09:04)
[2019-06-14] MEDS: LISINOPRIL 10 MG TABLET PO SCH (09:04)
[2019-06-14] MEDS: FLUTICASONE 50MCG/NASAL SPRAY 16GM BOTTLE. NS SCH (09:04)
[2019-06-14] MEDS: ACETAMINOPHEN 500 MG TABLET PO SCH ×2 (09:04→20:43)
[2019-06-14 15:28] VITALS: BP 95/65
[2019-06-14] MEDS: FAMOTIDINE 20 MG TABLET PO SCH (20:42)
[2019-06-14] MEDS: ATORVASTATIN CALCIUM 10 MG TABLET. PO SCH (20:43)
--- NOTE | 2019-06-14 21:26 | PDOC ---
Exam Note: Hamlet Note: Please also refer to the separate dictated note~for this date of service dictated separately.~Patient seen individually. Discussed the patient with Nursing staff reviewed the chart.~Reviewed interim history and current functioning. Reviewed vital signs,~Labs/ Radiology~and current medications noted below. Continue current treatment with the changes noted in the dictated addendum note Assessment: Vital Signs/I&O: Vital Signs Date Time Temp Pulse Resp B/P (MAP) Pulse Ox O2 Delivery O2 Flow Rate FiO2 06/14/19 20:42 100 95/65 06/14/19 15:28 98.0 16 98 06/12/19 05:22 Room Air I & O 06/13/19 06/13/19 06/14/19 15:00 23:00 07:00 Intake Total 660 ml 120 ml Balance 660 ml 120 ml Labs: Laboratory Tests Test 06/14/19 07:54 06/14/19 11:58 06/14/19 16:52 06/14/19 19:08 Glucose (Fingerstick) 89 mg/dL (70-99) 193 mg/dL (70-99) H 158 mg/dL (70-99) H 151 mg/dL (70-99) H Current Medications: I have reviewed the current psychotropics carefully including drug interactions. Risk benefit ratio favors no change other than as noted in my dictated progress note. Diagnosis: Problems: (1) Anxiety disorder (2) Dementia in Alzheimer's disease with delusions (3) Dementia in Alzheimer's disease with depression (4) Dementia, vascular, with delusions (5) Dementia, vascular, with depression (6) Impulse control disorder ABIGAIL HORNE MD Jun 14, 2019 21:26
[2019-06-14] MEDS: INSULIN GLARGINE SYRINGE. SQ SCH (21:37)
[2019-06-15] MEDS: hydrOXYzine HCL 25 MG TABLET PO PRN (01:00)
[2019-06-15 05:01] VITALS: BP 148/68
--- NOTE | 2019-06-15 05:09 | PN ---
DATE: 06/11/2019 PSYCHIATRIC PROGRESS NOTE This late entry 06/11/2019 covers elements not covered in my initial note. SUBJECTIVE: I met with the patient evening of 06/11/2019. Per GREGORY Torres, the patient slept 8 hours previous night. He was agitated in the morning, remains confused, but no sexually aggressive behaviors noted. REVIEW OF SYSTEMS: No CV, , pulmonary, eye, ENT system symptoms on review. Reliability poor. MENTAL STATUS EXAM: Oriented to himself. Insight, judgment, recent and remote memory, attention, concentration, fund of knowledge poor, consistent with his diagnosis. IMPRESSION: Major neurocognitive disorder, Alzheimer, vascular with delusion, depression, behavioral disturbance, post-traumatic stress disorder; anxiety disorder, unspecified; impulse control disorder, unspecified. PLAN: Valproic acid level therapeutic at 53, continue Depakote at current dosage. Prazosin 1 mg twice a day and 4 mg at bedtime, Zoloft 100 mg a day, Zyprexa p.r.n. and 7.5 mg at bedtime, Depakote 625 mg b.i.d., hydroxyzine p.r.n., Provera 15 mg a day. Adjust further as clinically indicated. ABIGAIL HORNE MD DR: MINOO/parul JOB#: [id number] / [id number]
[2019-06-15] MEDS: INSULIN LISPRO 300 UNITS/3 ML VIAL. SQ SCH ×3 (08:00→17:24)
[2019-06-15] MEDS: PRAZOSIN 1 MG CAPSULE. PO SCH ×3 (09:00→19:58)
[2019-06-15] MEDS: POLYETHYLENE GLYCOL 3350 17 GM PACKET. PO SCH (12:16)
[2019-06-15] MEDS: FOLIC ACID 1 MG TABLET PO SCH (12:17)
[2019-06-15] MEDS: medroxyPROGESTERone 5 MG TABLET PO SCH (12:17)
[2019-06-15] MEDS: DOCUSATE SODIUM 100 MG CAPSULE PO SCH ×2 (12:17→19:57)
[2019-06-15] MEDS: SERTRALINE 100 MG TABLET. PO SCH (12:17)
[2019-06-15] MEDS: ACETAMINOPHEN 500 MG TABLET PO SCH ×2 (12:17→19:58)
[2019-06-15] MEDS: DIVALPROEX 125 MG CAP.SPRINK PO SCH ×2 (12:17→19:57)
[2019-06-15] MEDS: CHOLECALCIFEROL (VITAMIN D3) 1,000 UNIT TABLET PO SCH (12:18)
[2019-06-15] MEDS: CYANOCOBALAMIN (VITAMIN B-12) 1,000 MCG TABLET. PO SCH (12:18)
[2019-06-15] MEDS: POTASSIUM CHLORIDE 20 MEQ TABLET.ER. PO SCH ×2 (12:18→19:58)
[2019-06-15] MEDS: OLANZapine 2.5 MG TABLET PO SCH ×3 (12:18→19:59)
[2019-06-15] MEDS: metFORMIN XR 500 MG TAB.ER.24H PO SCH ×2 (12:18→17:19)
[2019-06-15] MEDS: LISINOPRIL 10 MG TABLET PO SCH (12:19)
[2019-06-15] MEDS: MULTIVITAMIN with MINERAL TABLET. PO SCH (12:19)
[2019-06-15] MEDS: ASPIRIN 81 MG TAB.CHEW PO SCH (12:19)
[2019-06-15] MEDS: MAGNESIUM OXIDE 400 MG TABLET PO SCH ×3 (12:19→19:58)
[2019-06-15] MEDS: FUROSEMIDE 40 MG TABLET PO SCH (12:19)
[2019-06-15] MEDS: FLUTICASONE 50MCG/NASAL SPRAY 16GM BOTTLE. NS SCH (12:21)
[2019-06-15 15:43] VITALS: BP 155/83
[2019-06-15] MEDS: ATORVASTATIN CALCIUM 10 MG TABLET. PO SCH (19:59)
[2019-06-15] MEDS: FAMOTIDINE 20 MG TABLET PO SCH (19:59)
[2019-06-15] MEDS: INSULIN GLARGINE SYRINGE. SQ SCH (20:03)
--- NOTE | 2019-06-15 22:04 | PDOC ---
Exam Note: Hamlet Note: Please also refer to the separate dictated note~for this date of service dictated separately.~Patient seen individually. Discussed the patient with Nursing staff reviewed the chart.~Reviewed interim history and current functioning. Reviewed vital signs,~Labs/ Radiology~and current medications noted below. Continue current treatment with the changes noted in the dictated addendum note Assessment: Vital Signs/I&O: Vital Signs Date Time Temp Pulse Resp B/P (MAP) Pulse Ox O2 Delivery O2 Flow Rate FiO2 06/15/19 19:58 80 155/83 06/15/19 15:43 98.6 18 97 06/12/19 05:22 Room Air I & O 06/14/19 06/14/19 06/15/19 15:00 23:00 07:00 Intake Total 480 ml 240 ml Balance 480 ml 240 ml Labs: Laboratory Tests Test 06/15/19 07:53 06/15/19 12:02 06/15/19 17:13 06/15/19 19:11 Glucose (Fingerstick) 89 mg/dL (70-99) 109 mg/dL (70-99) H 151 mg/dL (70-99) H 134 mg/dL (70-99) H Current Medications: I have reviewed the current psychotropics carefully including drug interactions. Risk benefit ratio favors no change other than as noted in my dictated progress note. Diagnosis: Problems: (1) Anxiety disorder (2) Dementia in Alzheimer's disease with delusions (3) Dementia in Alzheimer's disease with depression (4) Dementia, vascular, with delusions (5) Dementia, vascular, with depression (6) Impulse control disorder ABIGAIL HORNE MD Jun 15, 2019 22:04
--- NOTE | 2019-06-16 01:03 | PN ---
DATE: 06/14/2019 PSYCHIATRIC PROGRESS NOTE This late entry 06/14/2019 covers elements not covered in my initial note. SUBJECTIVE: I met with the patient in the evening and reviewed information from Dr. Hernandez, who covered for me for the past couple of days. The patient slept 8-1/2 hours previous night. He was agitated in the evening, had to be in the [place]. Rest of the day, he did better. He did receive Zyprexa p.r.n. in the evening, then was less psychotic. He has not been sexually inappropriate. REVIEW OF SYSTEMS: No CV, , pulmonary, eye system symptoms on review. Reliability poor. MENTAL STATUS EXAM: Oriented to himself. Insight, judgment, recent and remote memory, attention, concentration, fund of knowledge poor, consistent with his diagnosis mentioned in my initial note. PLAN: No change from initial note. Continue prazosin, which we may need to increase gradually. Continue Zoloft along with Zyprexa, Depakote, hydroxyzine and Provera. MAN Louie HORNE MD DR: MINOO/parul JOB#: [id number] / [id number]
[2019-06-16 06:43] VITALS: BP 172/95
[2019-06-16] MEDS: DIVALPROEX 125 MG CAP.SPRINK PO SCH ×2 (08:30→20:40)
[2019-06-16] MEDS: CHOLECALCIFEROL (VITAMIN D3) 1,000 UNIT TABLET PO SCH (08:31)
[2019-06-16] MEDS: PRAZOSIN 1 MG CAPSULE. PO SCH ×3 (08:31→20:41)
[2019-06-16] MEDS: OLANZapine 2.5 MG TABLET PO SCH ×3 (08:31→20:40)
[2019-06-16] MEDS: medroxyPROGESTERone 5 MG TABLET PO SCH (08:31)
[2019-06-16] MEDS: FUROSEMIDE 40 MG TABLET PO SCH (08:31)
[2019-06-16] MEDS: metFORMIN XR 500 MG TAB.ER.24H PO SCH ×2 (08:32→17:40)
[2019-06-16] MEDS: FOLIC ACID 1 MG TABLET PO SCH (08:32)
[2019-06-16] MEDS: DOCUSATE SODIUM 100 MG CAPSULE PO SCH ×2 (08:32→20:42)
[2019-06-16] MEDS: MAGNESIUM OXIDE 400 MG TABLET PO SCH ×3 (08:32→20:41)
[2019-06-16] MEDS: POLYETHYLENE GLYCOL 3350 17 GM PACKET. PO SCH (08:33)
[2019-06-16] MEDS: POTASSIUM CHLORIDE 20 MEQ TABLET.ER. PO SCH ×2 (08:33→20:41)
[2019-06-16] MEDS: MULTIVITAMIN with MINERAL TABLET. PO SCH (08:33)
[2019-06-16] MEDS: SERTRALINE 100 MG TABLET. PO SCH (08:33)
[2019-06-16] MEDS: ASPIRIN 81 MG TAB.CHEW PO SCH (08:33)
[2019-06-16] MEDS: LISINOPRIL 10 MG TABLET PO SCH (08:33)
[2019-06-16] MEDS: ACETAMINOPHEN 500 MG TABLET PO SCH ×2 (08:33→20:41)
[2019-06-16] MEDS: CYANOCOBALAMIN (VITAMIN B-12) 1,000 MCG TABLET. PO SCH (08:33)
[2019-06-16] MEDS: INSULIN LISPRO 300 UNITS/3 ML VIAL. SQ SCH ×3 (08:36→17:00)
[2019-06-16] MEDS: FLUTICASONE 50MCG/NASAL SPRAY 16GM BOTTLE. NS SCH (09:00)
[2019-06-16 15:37] VITALS: BP 139/83
[2019-06-16] MEDS: DEXTROSE ORAL GEL 15 GM TUBE. PO PRN (17:04)
[2019-06-16] MEDS ORDERED: FLUTICASONE 50MCG/NASAL SPRAY 16GM BOTTLE. NS PRN (19:15)
[2019-06-16] MEDS: ATORVASTATIN CALCIUM 10 MG TABLET. PO SCH (20:41)
[2019-06-16] MEDS: FAMOTIDINE 20 MG TABLET PO SCH (20:42)
[2019-06-16] MEDS: INSULIN GLARGINE SYRINGE. SQ SCH (20:43)
--- NOTE | 2019-06-16 21:05 | PN ---
DATE: 06/15/2019 PSYCHIATRIC PROGRESS NOTE This late entry 06/15/2019 covers elements not covered in my initial note. SUBJECTIVE: I met with the patient evening of 06/15/2019. The patient slept 3-1/4 hours previous night per GREGORY Garcia. He did receive Atarax at night, slept all morning. He chews his medications, took half of his a.m. medications. No sexually inappropriate behaviors. No aggression. REVIEW OF SYSTEMS: No CV, , pulmonary, eye, ENT system symptoms on review. Reliability poor. MENTAL STATUS EXAM: Oriented to himself. Insight, judgment, recent and remote memory, attention, concentration, fund of knowledge poor, consistent with his diagnosis mentioned in my initial note. IMPRESSION: Major neurocognitive disorder, Alzheimer, vascular with delusion, depression, behavioral disturbance, PTSD; anxiety disorder, unspecified; impulse control disorder, unspecified. PLAN: Continue psychotropics from initial note. Prazosin for PTSD, Depakote therapeutic at 53 for his mood vacillations and he remains on Zoloft, Zyprexa p.r.n. and scheduled Provera 15 mg a day for his sexually inappropriate behaviors which seemed to have subsided. ABIGAIL HORNE MD DR: MINOO/parul JOB#: [id number] / [id number]
--- NOTE | 2019-06-16 21:39 | PDOC ---
Exam Note: Hamlet Note: Please also refer to the separate dictated note~for this date of service dictated separately.~Patient seen individually. Discussed the patient with Nursing staff reviewed the chart.~Reviewed interim history and current functioning. Reviewed vital signs,~Labs/ Radiology~and current medications noted below. Continue current treatment with the changes noted in the dictated addendum note Assessment: Vital Signs/I&O: Vital Signs Date Time Temp Pulse Resp B/P (MAP) Pulse Ox O2 Delivery O2 Flow Rate FiO2 06/16/19 20:41 68 139/83 06/16/19 15:37 97.6 16 97 06/12/19 05:22 Room Air I & O 06/15/19 06/15/19 06/16/19 15:00 23:00 07:00 Intake Total 480 ml 360 ml 120 ml Balance 480 ml 360 ml 120 ml Labs: Laboratory Tests Test 06/16/19 07:37 06/16/19 11:39 06/16/19 16:58 06/16/19 17:41 Glucose (Fingerstick) 97 mg/dL (70-99) 139 mg/dL (70-99) H 34 mg/dL (70-99) *L 104 mg/dL (70-99) H Test 06/16/19 19:54 Glucose (Fingerstick) 267 mg/dL (70-99) H Current Medications: I have reviewed the current psychotropics carefully including drug interactions. Risk benefit ratio favors no change other than as noted in my dictated progress note. Diagnosis: Problems: (1) Anxiety disorder (2) Dementia in Alzheimer's disease with delusions (3) Dementia in Alzheimer's disease with depression (4) Dementia, vascular, with delusions (5) Dementia, vascular, with depression (6) Impulse control disorder ABIGAIL HORNE MD Jun 16, 2019 21:39
[2019-06-17 05:40] VITALS: BP 136/64
[2019-06-17] MEDS: INSULIN LISPRO 300 UNITS/3 ML VIAL. SQ SCH ×3 (08:00→17:16)
[2019-06-17] MEDS: PRAZOSIN 1 MG CAPSULE. PO SCH ×3 (09:00→20:06)
[2019-06-17] MEDS: ACETAMINOPHEN 500 MG TABLET PO SCH ×2 (11:51→20:04)
[2019-06-17] MEDS: metFORMIN XR 500 MG TAB.ER.24H PO SCH ×2 (11:51→17:11)
[2019-06-17] MEDS: MAGNESIUM OXIDE 400 MG TABLET PO SCH ×3 (11:52→20:07)
[2019-06-17] MEDS: CHOLECALCIFEROL (VITAMIN D3) 1,000 UNIT TABLET PO SCH (11:53)
[2019-06-17] MEDS: ASPIRIN 81 MG TAB.CHEW PO SCH (11:53)
[2019-06-17] MEDS: SERTRALINE 100 MG TABLET. PO SCH (11:53)
[2019-06-17] MEDS: POTASSIUM CHLORIDE 20 MEQ TABLET.ER. PO SCH ×2 (11:53→20:05)
[2019-06-17] MEDS: DIVALPROEX 125 MG CAP.SPRINK PO SCH ×2 (11:53→20:06)
[2019-06-17] MEDS: DOCUSATE SODIUM 100 MG CAPSULE PO SCH ×2 (11:54→20:05)
[2019-06-17] MEDS: LISINOPRIL 10 MG TABLET PO SCH (11:54)
[2019-06-17] MEDS: MULTIVITAMIN with MINERAL TABLET. PO SCH (11:54)
[2019-06-17] MEDS: FUROSEMIDE 40 MG TABLET PO SCH (11:54)
[2019-06-17] MEDS: POLYETHYLENE GLYCOL 3350 17 GM PACKET. PO SCH (11:54)
[2019-06-17 16:05] VITALS: BP 104/68
--- NOTE | 2019-06-17 16:39 | EKG ---
[address] [address] Test Date: 2019-06-17 Test Time: 15:54:34 Pat Name: TOMÁS OSORIO Department: Room: [address] [place] [address] Gender: M Wage And Salary Administrator: : 1945 Requested By: ABIGAIL HORNE Order Number: [id number] Reading MD: Measurements Intervals [place] Rate: 97 P: 56 [place]: 168 QRS: -27 QRSD: 64 T: 31 QT: 324 QTc: 415 Interpretive Statements SINUS RHYTHM LEFTWARD AXIS OTHERWISE NORMAL ECG RI6.02 No previous ECG available for comparison
[2019-06-17] MEDS: ZIPRASIDONE 20 MG CAPSULE. PO SCH (20:05)
[2019-06-17] MEDS: ATORVASTATIN CALCIUM 10 MG TABLET. PO SCH (20:05)
[2019-06-17] MEDS: FAMOTIDINE 20 MG TABLET PO SCH (20:06)
[2019-06-17] MEDS: INSULIN GLARGINE SYRINGE. SQ SCH (20:13)
[2019-06-17] MEDS ORDERED: ZIPRASIDONE 20 MG CAPSULE. PO SCH (21:00)
--- NOTE | 2019-06-17 21:30 | PDOC ---
Exam Note: Hamlet Note: Please also refer to the separate dictated note~for this date of service dictated separately.~Patient seen individually. Discussed the patient with Nursing staff reviewed the chart.~Reviewed interim history and current functioning. Reviewed vital signs,~Labs/ Radiology~and current medications noted below. Continue current treatment with the changes noted in the dictated addendum note Assessment: Vital Signs/I&O: Vital Signs Date Time Temp Pulse Resp B/P (MAP) Pulse Ox O2 Delivery O2 Flow Rate FiO2 06/17/19 20:06 96 104/68 06/17/19 16:05 97.8 16 97 06/17/19 05:40 Room Air I & O 06/16/19 06/16/19 06/17/19 15:00 23:00 07:00 Intake Total 480 ml 480 ml Balance 480 ml 480 ml Labs: Laboratory Tests Test 06/17/19 07:32 06/17/19 12:09 06/17/19 17:04 06/17/19 19:41 Glucose (Fingerstick) 113 mg/dL (70-99) H 98 mg/dL (70-99) 168 mg/dL (70-99) H 135 mg/dL (70-99) H Current Medications: Meds: Current Medications Medications (Trade) Dose Ordered Sig/[place] Route PRN Reason Start Time Stop Time Status Last Admin Dose Admin Ziprasidone (Geodon) 20 mg BID PO 06/17/19 21:00 06/17/19 20:05 Ziprasidone (Geodon) 20 mg BID PO 06/17/19 21:00 06/17/19 20:08 I have reviewed the current psychotropics carefully including drug interactions. Risk benefit ratio favors no change other than as noted in my dictated progress note. Diagnosis: Problems: (1) Anxiety disorder (2) Dementia in Alzheimer's disease with delusions (3) Dementia in Alzheimer's disease with depression (4) Dementia, vascular, with delusions (5) Dementia, vascular, with depression (6) Impulse control disorder ABIGAIL HORNE MD Jun 17, 2019 21:30
[2019-06-18 05:24] VITALS: BP 134/81
[2019-06-18] MEDS: INSULIN LISPRO 300 UNITS/3 ML VIAL. SQ SCH ×3 (08:00→17:34)
[2019-06-18] MEDS: DOCUSATE SODIUM 100 MG CAPSULE PO SCH ×2 (08:25→19:46)
[2019-06-18] MEDS: FUROSEMIDE 40 MG TABLET PO SCH (08:26)
[2019-06-18] MEDS: POTASSIUM CHLORIDE 20 MEQ TABLET.ER. PO SCH ×2 (08:27→19:44)
[2019-06-18] MEDS: CHOLECALCIFEROL (VITAMIN D3) 1,000 UNIT TABLET PO SCH (08:27)
[2019-06-18] MEDS: medroxyPROGESTERone 5 MG TABLET PO SCH (08:27)
[2019-06-18] MEDS: metFORMIN XR 500 MG TAB.ER.24H PO SCH ×2 (08:27→17:31)
[2019-06-18] MEDS: ASPIRIN 81 MG TAB.CHEW PO SCH (08:28)
[2019-06-18] MEDS: MAGNESIUM OXIDE 400 MG TABLET PO SCH ×3 (08:28→19:44)
[2019-06-18] MEDS: PRAZOSIN 1 MG CAPSULE. PO SCH ×3 (08:28→19:43)
[2019-06-18] MEDS: ACETAMINOPHEN 500 MG TABLET PO SCH ×2 (08:28→19:45)
[2019-06-18] MEDS: ZIPRASIDONE 20 MG CAPSULE. PO SCH ×2 (08:28→19:45)
[2019-06-18] MEDS: MULTIVITAMIN with MINERAL TABLET. PO SCH (08:28)
[2019-06-18] MEDS: SERTRALINE 100 MG TABLET. PO SCH (08:29)
[2019-06-18] MEDS: LISINOPRIL 10 MG TABLET PO SCH (08:29)
[2019-06-18] MEDS: DIVALPROEX 125 MG CAP.SPRINK PO SCH ×2 (08:29→19:46)
[2019-06-18] MEDS: POLYETHYLENE GLYCOL 3350 17 GM PACKET. PO SCH (08:30)
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
--- NOTE | 2019-06-18 09:30 | PN ---
DATE: 06/17/2019 PSYCHIATRIC PROGRESS NOTE This late entry 06/17/2019 covers elements not covered in my initial note. SUBJECTIVE: I met with the patient in the evening and staffed at a treatment team meeting with the entire team in the morning. Appetite 75%, slept 7 hours previous night at times, resistive to medications, at times and sexually inappropriate with assessments. REVIEW OF SYSTEMS: No CV, , pulmonary, eye, ENT system symptoms on review. Reliability poor. MENTAL STATUS EXAM: Oriented to himself. Insight, judgment, recent and remote memory, attention, concentration, fund of knowledge poor, consistent with his diagnosis. Speech has moderate latency, often responses monosyllabic. I walked up and down the hallways with him as part of this assessment on 06/17/2019. LABORATORY DATA: Reviewed. IMPRESSION: Major neurocognitive disorder, Alzheimer, vascular with delusion, depression, behavioral disturbance; anxiety disorder, unspecified; impulse control disorder, unspecified; posttraumatic stress disorder. PLAN: The patient seems to have failed treatment on Zyprexa 7.5 mg at bedtime as an atypical antipsychotic. We will check an EKG, if QT corrected interval is unremarkable, we will start Geodon 20 mg twice a day in place of the Zyprexa and gradually increase this. Given his sexually inappropriate behaviors, we will increase the Provera from 15 mg a day to 20 mg a day. Continue prazosin total of 6 mg a day, Zoloft 100 mg a day, Depakote 625 mg b.i.d., valproic acid level therapeutic at 53 and hydroxyzine p.r.n. Adjust further as clinically indicated. QTC interval is 415 and we will go ahead and initiate Geodon as noted above. MAN Louie HORNE MD DR: MINOO/parul JOB#: [id number] / [id number]
[2019-06-18 15:42] VITALS: BP 111/70
[2019-06-18] MEDS: FAMOTIDINE 20 MG TABLET PO SCH (19:44)
[2019-06-18] MEDS: ATORVASTATIN CALCIUM 10 MG TABLET. PO SCH (19:45)
[2019-06-18] MEDS: INSULIN GLARGINE SYRINGE. SQ SCH (19:47)
--- NOTE | 2019-06-18 21:40 | PDOC ---
Exam Note: Hamlet Note: Please also refer to the separate dictated note~for this date of service dictated separately.~Patient seen individually. Discussed the patient with Nursing staff reviewed the chart.~Reviewed interim history and current functioning. Reviewed vital signs,~Labs/ Radiology~and current medications noted below. Continue current treatment with the changes noted in the dictated addendum note Assessment: Vital Signs/I&O: Vital Signs Date Time Temp Pulse Resp B/P (MAP) Pulse Ox O2 Delivery O2 Flow Rate FiO2 06/18/19 19:43 106 111/70 06/18/19 15:42 97.2 18 98 06/17/19 05:40 Room Air I & O 06/17/19 06/17/19 06/18/19 14:59 22:59 06:59 Intake Total 240 ml 120 ml Balance 240 ml 120 ml Labs: Laboratory Tests Test 06/18/19 07:30 06/18/19 12:11 06/18/19 17:17 06/18/19 19:36 Glucose (Fingerstick) 71 mg/dL (70-99) 288 mg/dL (70-99) H 157 mg/dL (70-99) H 176 mg/dL (70-99) H Current Medications: Meds: Current Medications Medications (Trade) Dose Ordered Sig/Samaria Route PRN Reason Start Time Stop Time Status Last Admin Dose Admin Medroxyprogesterone Acetate (Provera) 20 mg DAILY PO 06/18/19 09:00 06/18/19 08:27 I have reviewed the current psychotropics carefully including drug interactions. Risk benefit ratio favors no change other than as noted in my dictated progress note. Diagnosis: Problems: (1) Anxiety disorder (2) Dementia in Alzheimer's disease with delusions (3) Dementia in Alzheimer's disease with depression (4) Dementia, vascular, with delusions (5) Dementia, vascular, with depression (6) Impulse control disorder ABIGAIL HORNE MD Jun 18, 2019 21:40
[2019-06-19 05:39] VITALS: BP 160/81
[2019-06-19] MEDS: metFORMIN XR 500 MG TAB.ER.24H PO SCH ×2 (08:26→17:24)
[2019-06-19] MEDS: POLYETHYLENE GLYCOL 3350 17 GM PACKET. PO SCH (08:26)
[2019-06-19] MEDS: MULTIVITAMIN with MINERAL TABLET. PO SCH (08:26)
[2019-06-19] MEDS: ASPIRIN 81 MG TAB.CHEW PO SCH (08:26)
[2019-06-19] MEDS: PRAZOSIN 1 MG CAPSULE. PO SCH ×3 (08:27→19:42)
[2019-06-19] MEDS: medroxyPROGESTERone 5 MG TABLET PO SCH (08:27)
[2019-06-19] MEDS: ZIPRASIDONE 20 MG CAPSULE. PO SCH ×2 (08:27→19:43)
[2019-06-19] MEDS: POTASSIUM CHLORIDE 20 MEQ TABLET.ER. PO SCH ×2 (08:28→19:43)
[2019-06-19] MEDS: SERTRALINE 100 MG TABLET. PO SCH (08:28)
[2019-06-19] MEDS: MAGNESIUM OXIDE 400 MG TABLET PO SCH ×2 (08:28→14:01)
[2019-06-19] MEDS: DOCUSATE SODIUM 100 MG CAPSULE PO SCH ×2 (08:28→19:43)
[2019-06-19 08:29] LABS: BASO % 0 % (0-3); EOS # 0.2 x10^3/uL (0.0-0.7); EOS % 3 % (0-3); HEMATOCRIT 41.3 % (39.0-53.0); LYMPH # 1.8 x10^3/uL (1.0-4.8); LYMPH % 31 % (24-48); MEAN CORPUSCULAR HEMOGLOBIN 28 pg (25-35); MEAN CORPUSCULAR HGB CONC 31 g/dL (31-37); MEAN CORPUSCULAR VOLUME 89 fL (79-100); MONO # 0.7 x10^3/uL (0.0-1.1); MONO % 12 % (0-9); NEUT # 3.1 x10^3uL (1.8-7.7); NEUT % 54 % (31-73); PLATELET COUNT 215 x10^3/uL (140-400); RED BLOOD COUNT 4.66 x10^6/uL (4.30-5.70); RED CELL DISTRIBUTION WIDTH 15.5 % (11.5-14.5); WHITE BLOOD COUNT 5.7 x10^3/uL (4.0-11.0)
[2019-06-19] MEDS: FUROSEMIDE 40 MG TABLET PO SCH (08:29)
[2019-06-19] MEDS: ACETAMINOPHEN 500 MG TABLET PO SCH ×2 (08:30→19:43)
[2019-06-19] MEDS: DIVALPROEX 125 MG CAP.SPRINK PO SCH ×2 (08:30→19:43)
[2019-06-19] MEDS: CHOLECALCIFEROL (VITAMIN D3) 1,000 UNIT TABLET PO SCH (08:30)
[2019-06-19] MEDS: LISINOPRIL 10 MG TABLET PO SCH (08:30)
[2019-06-19] MEDS: INSULIN LISPRO 300 UNITS/3 ML VIAL. SQ SCH ×3 (08:32→17:42)
[2019-06-19 08:48] LABS: ALBUMIN 3.2 g/dL (3.4-5.0); ALBUMIN/GLOBULIN RATIO 0.7 (1.0-1.7); CALCIUM 9.2 mg/dL (8.5-10.1); CREATININE 1.6 mg/dL (0.7-1.3); GFR 51.5; POTASSIUM 4.1 mmol/L (3.5-5.1); TOTAL BILIRUBIN 0.2 mg/dL (0.2-1.0); TOTAL PROTEIN 7.8 g/dL (6.4-8.2)
[2019-06-19 15:49] VITALS: BP 109/64
[2019-06-19] MEDS ORDERED: CHOLECALCIFEROL (VITAMIN D3) 50,000 UNIT CAPSULE PO SCH (18:30)
[2019-06-19] MEDS: ATORVASTATIN CALCIUM 10 MG TABLET. PO SCH (19:43)
[2019-06-19] MEDS: FAMOTIDINE 20 MG TABLET PO SCH (19:43)
[2019-06-19] MEDS: INSULIN GLARGINE SYRINGE. SQ SCH (19:44)
[2019-06-20 06:09] VITALS: BP 165/76
[2019-06-20 08:33] VITALS: BP 165/89
[2019-06-20] MEDS: POLYETHYLENE GLYCOL 3350 17 GM PACKET. PO SCH (08:37)
[2019-06-20] MEDS: INSULIN LISPRO 300 UNITS/3 ML VIAL. SQ SCH ×3 (08:37→17:14)
[2019-06-20] MEDS: VALPROATE ACID 250 MG/5 ML ORAL SOLUTION PO SCH ×2 (08:37→19:50)
[2019-06-20] MEDS: POTASSIUM CHLORIDE 20 MEQ TABLET.ER. PO SCH ×2 (08:38→19:47)
[2019-06-20] MEDS: LISINOPRIL 10 MG TABLET PO SCH (08:38)
[2019-06-20] MEDS: CHOLECALCIFEROL (VITAMIN D3) 50,000 UNIT CAPSULE PO SCH (08:38)
[2019-06-20] MEDS: MULTIVITAMIN with MINERAL TABLET. PO SCH (08:38)
[2019-06-20] MEDS: PRAZOSIN 1 MG CAPSULE. PO SCH ×3 (08:39→19:49)
[2019-06-20] MEDS: DOCUSATE SODIUM 100 MG CAPSULE PO SCH ×2 (08:39→19:48)
[2019-06-20] MEDS: FUROSEMIDE 40 MG TABLET PO SCH (08:39)
[2019-06-20] MEDS: metFORMIN XR 500 MG TAB.ER.24H PO SCH ×2 (08:39→17:10)
[2019-06-20] MEDS: ZIPRASIDONE 20 MG CAPSULE. PO SCH ×2 (08:39→19:47)
[2019-06-20] MEDS: ASPIRIN 81 MG TAB.CHEW PO SCH (08:39)
[2019-06-20] MEDS: medroxyPROGESTERone 5 MG TABLET PO SCH (08:39)
[2019-06-20] MEDS: ACETAMINOPHEN 500 MG TABLET PO SCH ×2 (08:39→19:47)
[2019-06-20] MEDS: SERTRALINE 100 MG TABLET. PO SCH (08:39)
[2019-06-20 12:10] VITALS: BP 134/84
[2019-06-20 16:10] VITALS: BP 130/70
[2019-06-20] MEDS: FAMOTIDINE 20 MG TABLET PO SCH (19:46)
[2019-06-20] MEDS: ATORVASTATIN CALCIUM 10 MG TABLET. PO SCH (19:48)
[2019-06-20] MEDS: INSULIN GLARGINE SYRINGE. SQ SCH (19:50)
--- NOTE | 2019-06-20 21:50 | PDOC ---
Exam Note: Hamlet Note: This is a late entry for DOS 06/19/2019. VS - Last 72 Hours, by Label Date Time Temp Pulse Resp B/P (MAP) Pulse Ox O2 Delivery O2 Flow Rate FiO2 06/20/19 19:49 74 130/70 06/20/19 16:10 97.2 74 18 130/70 (90) 97 06/20/19 12:13 73 138/84 06/20/19 12:10 73 18 134/84 (101) 06/20/19 08:39 87 165/89 06/20/19 08:38 87 165/89 06/20/19 08:33 87 16 165/89 (114) 06/20/19 06:09 97.1 76 16 165/76 (105) 98 Room Air 06/19/19 19:42 78 109/64 06/19/19 15:49 97.2 78 20 109/64 (79) 98 06/19/19 14:01 90 106/64 06/19/19 08:30 70 160/81 06/19/19 08:27 70 160/81 06/19/19 05:39 96.9 70 18 160/81 (107) 96 06/18/19 19:43 106 111/70 06/18/19 15:42 97.2 106 18 111/70 (84) 98 06/18/19 15:04 106 111/70 06/18/19 08:29 66 134/81 06/18/19 08:28 66 134/81 06/18/19 05:24 97.8 66 16 134/81 (98) 93 Please also refer to the separate dictated note~for this date of service dictated separately.~Patient seen individually. Discussed the patient with Nursing staff reviewed the chart.~Reviewed interim history and current functioning. Reviewed vital signs,~Labs/ Radiology~and current medications noted below. Continue current treatment with the changes noted in the dictated addendum note Assessment: Vital Signs/I&O: Vital Signs Date Time Temp Pulse Resp B/P (MAP) Pulse Ox O2 Delivery O2 Flow Rate FiO2 06/20/19 19:49 74 130/70 06/20/19 16:10 97.2 18 97 06/20/19 06:09 Room Air I & O 06/19/19 06/19/19 06/20/19 15:00 23:00 07:00 Intake Total 840 ml 480 ml Balance 840 ml 480 ml Labs: Laboratory Tests Test 06/20/19 07:48 06/20/19 12:02 06/20/19 17:07 06/20/19 19:40 Glucose (Fingerstick) 82 mg/dL (70-99) 122 mg/dL (70-99) H 149 mg/dL (70-99) H 107 mg/dL (70-99) H Current Medications: Meds: Current Medications Medications (Trade) Dose Ordered Sig/Samaria Route PRN Reason Start Time Stop Time Status Last Admin Dose Admin Vitamin D (Vitamin D3) 50,000 unit QSU@0800 PO 06/20/19 08:00 06/20/19 08:38 Valproic Acid (Depakene) 625 mg BID PO 06/20/19 09:00 06/20/19 19:50 I have reviewed the current psychotropics carefully including drug interactions. Risk benefit ratio favors no change other than as noted in my dictated progress note. Diagnosis: Problems: (1) Anxiety disorder (2) Dementia in Alzheimer's disease with delusions (3) Dementia in Alzheimer's disease with depression (4) Dementia, vascular, with delusions (5) Dementia, vascular, with depression (6) Impulse control disorder ABIGAIL HORNE MD Jun 20, 2019 21:49
--- NOTE | 2019-06-20 22:01 | PDOC ---
Exam Note: Hamlet Note: Please also refer to the separate dictated note~for this date of service dictated separately.~Patient seen individually. Discussed the patient with Nursing staff reviewed the chart.~Reviewed interim history and current functioning. Reviewed vital signs,~Labs/ Radiology~and current medications noted below. Continue current treatment with the changes noted in the dictated addendum note Assessment: Vital Signs/I&O: Vital Signs Date Time Temp Pulse Resp B/P (MAP) Pulse Ox O2 Delivery O2 Flow Rate FiO2 06/20/19 19:49 74 130/70 06/20/19 16:10 97.2 18 97 06/20/19 06:09 Room Air I & O 06/19/19 06/19/19 06/20/19 15:00 23:00 07:00 Intake Total 840 ml 480 ml Balance 840 ml 480 ml Labs: Laboratory Tests Test 06/20/19 07:48 06/20/19 12:02 06/20/19 17:07 06/20/19 19:40 Glucose (Fingerstick) 82 mg/dL (70-99) 122 mg/dL (70-99) H 149 mg/dL (70-99) H 107 mg/dL (70-99) H Current Medications: Meds: Current Medications Medications (Trade) Dose Ordered Sig/Samaria Route PRN Reason Start Time Stop Time Status Last Admin Dose Admin Vitamin D (Vitamin D3) 50,000 unit QSU@0800 PO 06/20/19 08:00 06/20/19 08:38 Valproic Acid (Depakene) 625 mg BID PO 06/20/19 09:00 06/20/19 19:50 I have reviewed the current psychotropics carefully including drug interactions. Risk benefit ratio favors no change other than as noted in my dictated progress note. Diagnosis: Problems: (1) Anxiety disorder (2) Dementia in Alzheimer's disease with delusions (3) Dementia in Alzheimer's disease with depression (4) Dementia, vascular, with delusions (5) Dementia, vascular, with depression (6) Impulse control disorder ABIGAIL HORNE MD Jun 20, 2019 22:01
--- NOTE | 2019-06-20 23:31 | PN ---
DATE: 06/18/2019 PSYCHIATRIC PROGRESS NOTE This late entry 06/18/2019 covers elements not covered in my initial note. SUBJECTIVE: I met with the patient evening of 06/18/2019. Per GREGORY Torres, the patient slept 8 hours previous night. He has had a good day, more awake, laughing, appropriate, not sexually aggressive. He was intrusive with one of the other demented patients, but redirected. REVIEW OF SYSTEMS: No CV, , pulmonary, eye, ENT system symptoms on review. MENTAL STATUS EXAM: Oriented to himself. Insight, judgment, recent and remote memory, attention, concentration, fund of knowledge poor, consistent with his diagnosis mentioned in my initial note. PLAN: No change from initial note. MAN Louie HORNE MD DR: MINOO/parul JOB#: [id number] / [id number]
--- NOTE | 2019-06-21 00:30 | PN ---
DATE: 06/19/2019 PSYCHIATRIC PROGRESS NOTE This late entry 06/19/2019 covers elements not covered in my initial note. SUBJECTIVE: I met with the patient in the evening of 06/19/2019. The patient slept 8 hours previous night. He has been doing better, remains confused, but not sexually inappropriate or aggressive. He is complaining of having to take too many pills. We will change the 4 tablets of the 1 mg prazosin at night to the 1 tablet of 4 mg and change the Depakote Sprinkles 625 mg b.i.d. to liquid to help eliminate the number of pills he takes. REVIEW OF SYSTEMS: No CV, , pulmonary, eye, ENT system symptoms on review. MENTAL STATUS EXAM: Oriented to himself. Insight, judgment, recent and remote memory, attention, concentration, fund of knowledge poor, consistent with his diagnosis mentioned in my initial note. IMPRESSION: Major neurocognitive disorder, Alzheimer, vascular with delusion, depression, behavioral disturbance, PTSD; anxiety disorder, unspecified; impulse control disorder, unspecified. Rest unchanged for now. PLAN: Changes noted above. Rest unchanged. MAN Louie HORNE MD DR: MINOO/parul JOB#: [id number] / [id number]
[2019-06-21 06:32] VITALS: BP 147/86
[2019-06-21] MEDS: INSULIN LISPRO 300 UNITS/3 ML VIAL. SQ SCH ×3 (08:00→17:31)
[2019-06-21] MEDS: ASPIRIN 81 MG TAB.CHEW PO SCH (08:52)
[2019-06-21] MEDS: DOCUSATE SODIUM 100 MG CAPSULE PO SCH ×2 (08:52→20:30)
[2019-06-21] MEDS: metFORMIN XR 500 MG TAB.ER.24H PO SCH ×2 (08:52→17:30)
[2019-06-21] MEDS: ZIPRASIDONE 20 MG CAPSULE. PO SCH ×2 (08:53→20:31)
[2019-06-21] MEDS: FUROSEMIDE 40 MG TABLET PO SCH (08:53)
[2019-06-21] MEDS: POTASSIUM CHLORIDE 20 MEQ TABLET.ER. PO SCH ×2 (08:53→20:30)
[2019-06-21] MEDS: VALPROATE ACID 250 MG/5 ML ORAL SOLUTION PO SCH ×2 (08:53→20:31)
[2019-06-21] MEDS: medroxyPROGESTERone 5 MG TABLET PO SCH (08:54)
[2019-06-21] MEDS: PRAZOSIN 1 MG CAPSULE. PO SCH ×3 (08:54→20:31)
[2019-06-21] MEDS: ACETAMINOPHEN 500 MG TABLET PO SCH ×2 (08:54→20:30)
[2019-06-21] MEDS: SERTRALINE 100 MG TABLET. PO SCH (08:54)
[2019-06-21] MEDS: POLYETHYLENE GLYCOL 3350 17 GM PACKET. PO SCH (08:54)
[2019-06-21] MEDS: MULTIVITAMIN with MINERAL TABLET. PO SCH (08:54)
[2019-06-21] MEDS: LISINOPRIL 10 MG TABLET PO SCH (08:54)
[2019-06-21 16:12] VITALS: BP 148/82
[2019-06-21] MEDS: ATORVASTATIN CALCIUM 10 MG TABLET. PO SCH (20:30)
[2019-06-21] MEDS: FAMOTIDINE 20 MG TABLET PO SCH (20:30)
[2019-06-21] MEDS: INSULIN GLARGINE SYRINGE. SQ SCH (20:37)
--- NOTE | 2019-06-21 21:28 | PDOC ---
Exam Note: Hamlet Note: Please also refer to the separate dictated note~for this date of service dictated separately.~Patient seen individually. Discussed the patient with Nursing staff reviewed the chart.~Reviewed interim history and current functioning. Reviewed vital signs,~Labs/ Radiology~and current medications noted below. Continue current treatment with the changes noted in the dictated addendum note Assessment: Vital Signs/I&O: Vital Signs Date Time Temp Pulse Resp B/P (MAP) Pulse Ox O2 Delivery O2 Flow Rate FiO2 06/21/19 20:31 97 148/82 06/21/19 16:12 98.0 18 100 06/20/19 06:09 Room Air I & O 06/20/19 06/20/19 06/21/19 15:00 23:00 07:00 Intake Total 720 ml 120 ml Balance 720 ml 120 ml Labs: Laboratory Tests Test 06/21/19 07:46 06/21/19 12:02 06/21/19 17:09 06/21/19 19:04 Glucose (Fingerstick) 94 mg/dL (70-99) 154 mg/dL (70-99) H 180 mg/dL (70-99) H 226 mg/dL (70-99) H Current Medications: I have reviewed the current psychotropics carefully including drug interactions. Risk benefit ratio favors no change other than as noted in my dictated progress note. Diagnosis: Problems: (1) Anxiety disorder (2) Dementia in Alzheimer's disease with delusions (3) Dementia in Alzheimer's disease with depression (4) Dementia, vascular, with delusions (5) Dementia, vascular, with depression (6) Impulse control disorder ABIGAIL HORNE MD Jun 21, 2019 21:28
--- NOTE | 2019-06-22 00:49 | PN ---
DATE: 06/20/2019 PSYCHIATRIC PROGRESS NOTE This late entry 06/20/2019 covers the elements not covered in my initial note. SUBJECTIVE: I met with the patient in the evening of 06/20/2019. The patient slept 8 hours previous night per GREGORY Rolle. He has been started on Geodon, Zyprexa was stopped the scheduled dosage. His Depakote has been changed to Depakene liquid at his request because of too many pills he was having of the Depakote to get a level therapeutic. He gets somewhat delusional, not aggressive, not sexually inappropriate. REVIEW OF SYSTEMS: No CV, , pulmonary, eye system symptoms on review. No PRNs were given. MENTAL STATUS EXAM: Oriented to himself. Insight, judgment, recent and remote memory, attention, concentration, fund of knowledge poor, consistent with his diagnosis mentioned in my initial note. PLAN: No change from initial note. IMPRESSION: Major neurocognitive disorder, Alzheimer, vascular with delusion, depression, behavioral disturbance, PTSD; anxiety disorder, unspecified; impulse control disorder, unspecified. MAN Louie HORNE MD DR: MINOO/parul JOB#: [id number] / [id number]
[2019-06-22 06:07] VITALS: BP 135/84
[2019-06-22] MEDS: INSULIN LISPRO 300 UNITS/3 ML VIAL. SQ SCH ×3 (08:00→17:59)
[2019-06-22] MEDS: VALPROATE ACID 250 MG/5 ML ORAL SOLUTION PO SCH ×3 (08:13→20:31)
[2019-06-22] MEDS: ASPIRIN 81 MG TAB.CHEW PO SCH ×2 (08:14→08:15)
[2019-06-22] MEDS: ZIPRASIDONE 20 MG CAPSULE. PO SCH ×2 (08:14→08:15)
[2019-06-22] MEDS: medroxyPROGESTERone 5 MG TABLET PO SCH ×2 (08:14→08:15)
[2019-06-22] MEDS: PRAZOSIN 1 MG CAPSULE. PO SCH ×4 (08:14→20:30)
[2019-06-22] MEDS: POLYETHYLENE GLYCOL 3350 17 GM PACKET. PO SCH ×2 (08:15→08:16)
[2019-06-22] MEDS: metFORMIN XR 500 MG TAB.ER.24H PO SCH ×2 (08:15→17:58)
[2019-06-22] MEDS: FUROSEMIDE 40 MG TABLET PO SCH (08:15)
[2019-06-22] MEDS: POTASSIUM CHLORIDE 20 MEQ TABLET.ER. PO SCH ×2 (08:15→20:31)
[2019-06-22] MEDS: SERTRALINE 100 MG TABLET. PO SCH ×2 (08:15→08:17)
[2019-06-22] MEDS: DOCUSATE SODIUM 100 MG CAPSULE PO SCH ×2 (08:15→20:31)
[2019-06-22] MEDS: ACETAMINOPHEN 500 MG TABLET PO SCH ×2 (08:15→20:30)
[2019-06-22] MEDS: LISINOPRIL 10 MG TABLET PO SCH ×2 (08:15→08:16)
[2019-06-22] MEDS: MULTIVITAMIN with MINERAL TABLET. PO SCH (08:15)
[2019-06-22 15:54] VITALS: BP 108/73
[2019-06-22] MEDS: hydrOXYzine HCL 25 MG TABLET PO PRN (17:15)
[2019-06-22 20:29] VITALS: BP 145/85
[2019-06-22] MEDS: ZIPRASIDONE 40 MG CAPSULE. PO SCH (20:31)
[2019-06-22] MEDS: ATORVASTATIN CALCIUM 10 MG TABLET. PO SCH (20:31)
[2019-06-22] MEDS: FAMOTIDINE 20 MG TABLET PO SCH (20:31)
--- NOTE | 2019-06-22 21:01 | PN ---
DATE: 06/21/2019 PSYCHIATRIC PROGRESS NOTE This late entry 06/21/2018 covers elements not covered in my initial note. SUBJECTIVE: I met with the patient evening of 06/21/2019. Per GREGORY Barnes, the patient had a good day. He slept 7-3/4 hours previous night. In the evening, he was somewhat confused, urinating on the brick outside the [facility], but redirected. No sexually inappropriate behaviors, comments or actions noted whatsoever. He is less startled and appears better stabilized for his PTSD as well. REVIEW OF SYSTEMS: No CV, , pulmonary, eye, ENT system symptoms on review. Reliability poor. MENTAL STATUS EXAM: Oriented to himself. Insight, judgment, recent and remote memory, attention, concentration, fund of knowledge poor, consistent with his diagnosis. IMPRESSION: Major neurocognitive disorder, Alzheimer, vascular with delusion, depression, behavioral disturbance, PTSD; anxiety disorder, unspecified; impulse control disorder, unspecified. PLAN: Continue prazosin 1 mg twice a day, 4 mg at bedtime, Zoloft 100 mg a day, Geodon 20 mg b.i.d., Zyprexa Zydis p.r.n., Depakene liquid 625 b.i.d., level therapeutic at 53, hydroxyzine p.r.n., Provera 20 mg daily. Reviewed risks/benefit ratio, drug interactions. Continue rest unchanged for now. Await placement per social service staff. ABIGAIL HORNE MD DR: MINOO/parul JOB#: [id number] / [id number]
[2019-06-22] MEDS: INSULIN GLARGINE SYRINGE. SQ SCH (21:19)
--- NOTE | 2019-06-22 21:21 | PDOC ---
Exam Note: Hamlet Note: Please also refer to the separate dictated note~for this date of service dictated separately.~Patient seen individually. Discussed the patient with Nursing staff reviewed the chart.~Reviewed interim history and current functioning. Reviewed vital signs,~Labs/ Radiology~and current medications noted below. Continue current treatment with the changes noted in the dictated addendum note Assessment: Vital Signs/I&O: Vital Signs Date Time Temp Pulse Resp B/P (MAP) Pulse Ox O2 Delivery O2 Flow Rate FiO2 06/22/19 20:30 68 145/85 06/22/19 20:29 18 94 06/22/19 15:54 97.3 06/20/19 06:09 Room Air I & O 06/21/19 06/21/19 06/22/19 15:00 23:00 07:00 Intake Total 800 ml 360 ml Balance 800 ml 360 ml Labs: Laboratory Tests Test 06/22/19 07:46 06/22/19 11:45 06/22/19 17:22 06/22/19 19:49 Glucose (Fingerstick) 89 mg/dL (70-99) 228 mg/dL (70-99) H 128 mg/dL (70-99) H 159 mg/dL (70-99) H Current Medications: Meds: Current Medications Medications (Trade) Dose Ordered Sig/Samaria Route PRN Reason Start Time Stop Time Status Last Admin Dose Admin Ziprasidone (Geodon) 40 mg QHS PO 06/22/19 21:00 06/22/19 20:31 I have reviewed the current psychotropics carefully including drug interactions. Risk benefit ratio favors no change other than as noted in my dictated progress note. Diagnosis: Problems: (1) Anxiety disorder (2) Dementia in Alzheimer's disease with delusions (3) Dementia in Alzheimer's disease with depression (4) Dementia, vascular, with delusions (5) Dementia, vascular, with depression (6) Impulse control disorder ABIGAIL HORNE MD Jun 22, 2019 21:21
[2019-06-23 05:47] VITALS: BP 164/81
[2019-06-23] MEDS: INSULIN LISPRO 300 UNITS/3 ML VIAL. SQ SCH ×3 (08:00→17:21)
[2019-06-23] MEDS: POLYETHYLENE GLYCOL 3350 17 GM PACKET. PO SCH (10:41)
[2019-06-23] MEDS: medroxyPROGESTERone 5 MG TABLET PO SCH (10:42)
[2019-06-23] MEDS: VALPROATE ACID 250 MG/5 ML ORAL SOLUTION PO SCH ×2 (10:42→20:30)
[2019-06-23] MEDS: metFORMIN XR 500 MG TAB.ER.24H PO SCH ×2 (10:42→17:13)
[2019-06-23] MEDS: ACETAMINOPHEN 500 MG TABLET PO SCH ×2 (10:43→20:32)
[2019-06-23] MEDS: PRAZOSIN 1 MG CAPSULE. PO SCH ×3 (10:43→20:31)
[2019-06-23] MEDS: DOCUSATE SODIUM 100 MG CAPSULE PO SCH ×2 (10:43→20:31)
[2019-06-23] MEDS: SERTRALINE 100 MG TABLET. PO SCH (10:43)
[2019-06-23] MEDS: ASPIRIN 81 MG TAB.CHEW PO SCH (10:44)
[2019-06-23] MEDS: ZIPRASIDONE 20 MG CAPSULE. PO SCH (10:44)
[2019-06-23] MEDS: MULTIVITAMIN with MINERAL TABLET. PO SCH (10:44)
[2019-06-23] MEDS: POTASSIUM CHLORIDE 20 MEQ TABLET.ER. PO SCH ×2 (10:44→20:31)
[2019-06-23] MEDS: FUROSEMIDE 40 MG TABLET PO SCH (10:44)
[2019-06-23] MEDS: LISINOPRIL 10 MG TABLET PO SCH (10:45)
[2019-06-23] MEDS: hydrOXYzine HCL 25 MG TABLET PO PRN ×2 (15:33→20:31)
[2019-06-23 15:59] VITALS: BP 112/73
[2019-06-23] MEDS: ZIPRASIDONE 40 MG CAPSULE. PO SCH (20:31)
[2019-06-23] MEDS: ATORVASTATIN CALCIUM 10 MG TABLET. PO SCH (20:31)
[2019-06-23] MEDS: FAMOTIDINE 20 MG TABLET PO SCH (20:31)
[2019-06-23] MEDS: INSULIN GLARGINE SYRINGE. SQ SCH (20:33)
--- NOTE | 2019-06-23 21:23 | PDOC ---
Exam Note: Hamlet Note: Please also refer to the separate dictated note~for this date of service dictated separately.~Patient seen individually. Discussed the patient with Nursing staff reviewed the chart.~Reviewed interim history and current functioning. Reviewed vital signs,~Labs/ Radiology~and current medications noted below. Continue current treatment with the changes noted in the dictated addendum note Assessment: Vital Signs/I&O: Vital Signs Date Time Temp Pulse Resp B/P (MAP) Pulse Ox O2 Delivery O2 Flow Rate FiO2 06/23/19 20:31 78 112/73 06/23/19 15:59 97.3 18 98 06/20/19 06:09 Room Air I & O 06/22/19 06/22/19 06/23/19 15:00 23:00 07:00 Intake Total 600 ml 120 ml Balance 600 ml 120 ml Labs: Laboratory Tests Test 06/23/19 07:23 06/23/19 12:00 06/23/19 17:12 06/23/19 19:04 Glucose (Fingerstick) 97 mg/dL (70-99) 173 mg/dL (70-99) H 198 mg/dL (70-99) H 217 mg/dL (70-99) H Current Medications: Meds: Current Medications Medications (Trade) Dose Ordered Sig/Samaria Route PRN Reason Start Time Stop Time Status Last Admin Dose Admin Ziprasidone (Geodon) 20 mg DAILY PO 06/23/19 09:00 06/23/19 10:44 I have reviewed the current psychotropics carefully including drug interactions. Risk benefit ratio favors no change other than as noted in my dictated progress note. Diagnosis: Problems: (1) Anxiety disorder (2) Dementia in Alzheimer's disease with delusions (3) Dementia in Alzheimer's disease with depression (4) Dementia, vascular, with delusions (5) Dementia, vascular, with depression (6) Impulse control disorder ABIGAIL HORNE MD Jun 23, 2019 21:23
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
[2019-06-24 06:21] VITALS: BP 136/78
[2019-06-24] MEDS: POLYETHYLENE GLYCOL 3350 17 GM PACKET. PO SCH (07:59)
[2019-06-24] MEDS: POTASSIUM CHLORIDE 20 MEQ TABLET.ER. PO SCH ×2 (08:00→19:48)
[2019-06-24] MEDS: VALPROATE ACID 250 MG/5 ML ORAL SOLUTION PO SCH ×2 (08:00→19:49)
[2019-06-24] MEDS: SERTRALINE 100 MG TABLET. PO SCH (08:00)
[2019-06-24] MEDS: INSULIN LISPRO 300 UNITS/3 ML VIAL. SQ SCH ×3 (08:00→17:11)
[2019-06-24] MEDS: medroxyPROGESTERone 5 MG TABLET PO SCH (08:00)
[2019-06-24] MEDS: ASPIRIN 81 MG TAB.CHEW PO SCH (08:01)
[2019-06-24] MEDS: DOCUSATE SODIUM 100 MG CAPSULE PO SCH ×2 (08:01→19:47)
[2019-06-24] MEDS: metFORMIN XR 500 MG TAB.ER.24H PO SCH ×2 (08:01→17:08)
[2019-06-24] MEDS: PRAZOSIN 1 MG CAPSULE. PO SCH ×3 (08:01→19:46)
[2019-06-24] MEDS: FUROSEMIDE 40 MG TABLET PO SCH (08:02)
[2019-06-24] MEDS: LISINOPRIL 10 MG TABLET PO SCH (08:02)
[2019-06-24] MEDS: MULTIVITAMIN with MINERAL TABLET. PO SCH (08:02)
[2019-06-24] MEDS: ZIPRASIDONE 20 MG CAPSULE. PO SCH (08:02)
[2019-06-24] MEDS: ACETAMINOPHEN 500 MG TABLET PO SCH ×2 (08:02→19:47)
[2019-06-24 16:19] VITALS: BP 104/62
[2019-06-24] MEDS: FAMOTIDINE 20 MG TABLET PO SCH (19:47)
[2019-06-24] MEDS: ZIPRASIDONE 40 MG CAPSULE. PO SCH (19:47)
[2019-06-24] MEDS: ATORVASTATIN CALCIUM 10 MG TABLET. PO SCH (19:48)
[2019-06-24] MEDS: INSULIN GLARGINE SYRINGE. SQ SCH (19:51)
[2019-06-24 19:55] VITALS: BP 95/65
[2019-06-24] MEDS: hydrOXYzine HCL 25 MG TABLET PO PRN (21:30)
--- NOTE | 2019-06-24 21:31 | PDOC ---
Exam Note: Hamlet Note: Please also refer to the separate dictated note~for this date of service dictated separately.~Patient seen individually. Discussed the patient with Nursing staff reviewed the chart.~Reviewed interim history and current functioning. Reviewed vital signs,~Labs/ Radiology~and current medications noted below. Continue current treatment with the changes noted in the dictated addendum note Assessment: Vital Signs/I&O: Vital Signs Date Time Temp Pulse Resp B/P (MAP) Pulse Ox O2 Delivery O2 Flow Rate FiO2 06/24/19 19:55 97.8 108 17 95/65 (75) 98 Room Air I & O 06/23/19 06/23/19 06/24/19 15:00 23:00 07:00 Intake Total 480 ml 480 ml Balance 480 ml 480 ml Labs: Laboratory Tests Test 06/24/19 07:42 06/24/19 12:06 06/24/19 17:06 06/24/19 19:39 Glucose (Fingerstick) 85 mg/dL (70-99) 194 mg/dL (70-99) H 227 mg/dL (70-99) H 356 mg/dL (70-99) H Current Medications: I have reviewed the current psychotropics carefully including drug interactions. Risk benefit ratio favors no change other than as noted in my dictated progress note. Diagnosis: Problems: (1) Anxiety disorder (2) Dementia in Alzheimer's disease with delusions (3) Dementia in Alzheimer's disease with depression (4) Dementia, vascular, with delusions (5) Dementia, vascular, with depression (6) Impulse control disorder ABIGAIL HORNE MD Jun 24, 2019 21:31
[2019-06-25 06:31] VITALS: BP 159/78
[2019-06-25 07:04] LABS: BASO % 0 % (0-3); EOS # 0.2 x10^3/uL (0.0-0.7); EOS % 3 % (0-3); HEMATOCRIT 38.5 % (39.0-53.0); HEMOGLOBIN 12.3 g/dL (13.0-17.5); LYMPH # 2.2 x10^3/uL (1.0-4.8); LYMPH % 40 % (24-48); MEAN CORPUSCULAR HEMOGLOBIN 28 pg (25-35); MEAN CORPUSCULAR HGB CONC 32 g/dL (31-37); MEAN CORPUSCULAR VOLUME 88 fL (79-100); MONO # 0.7 x10^3/uL (0.0-1.1); MONO % 12 % (0-9); NEUT # 2.4 x10^3uL (1.8-7.7); NEUT % 44 % (31-73); PLATELET COUNT 171 x10^3/uL (140-400); RED BLOOD COUNT 4.38 x10^6/uL (4.30-5.70); RED CELL DISTRIBUTION WIDTH 15.1 % (11.5-14.5); WHITE BLOOD COUNT 5.4 x10^3/uL (4.0-11.0)
[2019-06-25 07:18] LABS: ALBUMIN 2.8 g/dL (3.4-5.0); ALBUMIN/GLOBULIN RATIO 0.7 (1.0-1.7); CALCIUM 8.4 mg/dL (8.5-10.1); CREATININE 1.4 mg/dL (0.7-1.3); GFR 60.1; MAGNESIUM 1.6 mg/dL (1.8-2.4); POTASSIUM 3.6 mmol/L (3.5-5.1); TOTAL BILIRUBIN 0.3 mg/dL (0.2-1.0); TOTAL PROTEIN 6.7 g/dL (6.4-8.2)
[2019-06-25] MEDS: INSULIN LISPRO 300 UNITS/3 ML VIAL. SQ SCH ×3 (08:00→17:00)
[2019-06-25] MEDS: SERTRALINE 100 MG TABLET. PO SCH (08:42)
[2019-06-25] MEDS: metFORMIN XR 500 MG TAB.ER.24H PO SCH ×2 (08:42→17:00)
[2019-06-25] MEDS: ASPIRIN 81 MG TAB.CHEW PO SCH (08:42)
[2019-06-25] MEDS: medroxyPROGESTERone 5 MG TABLET PO SCH (08:42)
[2019-06-25] MEDS: POTASSIUM CHLORIDE 20 MEQ TABLET.ER. PO SCH ×2 (08:43→21:00)
[2019-06-25] MEDS: LISINOPRIL 10 MG TABLET PO SCH (08:43)
[2019-06-25] MEDS: ZIPRASIDONE 20 MG CAPSULE. PO SCH (08:43)
[2019-06-25] MEDS: FUROSEMIDE 40 MG TABLET PO SCH (08:43)
[2019-06-25] MEDS: MULTIVITAMIN with MINERAL TABLET. PO SCH (08:43)
[2019-06-25] MEDS: ACETAMINOPHEN 500 MG TABLET PO SCH ×2 (08:43→21:00)
[2019-06-25] MEDS: DOCUSATE SODIUM 100 MG CAPSULE PO SCH ×2 (08:44→21:00)
[2019-06-25] MEDS: PRAZOSIN 1 MG CAPSULE. PO SCH ×3 (08:44→21:00)
[2019-06-25] MEDS: POLYETHYLENE GLYCOL 3350 17 GM PACKET. PO SCH (08:44)
[2019-06-25] MEDS: VALPROATE ACID 250 MG/5 ML ORAL SOLUTION PO SCH ×2 (08:44→21:00)
[2019-06-25 16:23] VITALS: BP 113/75
--- NOTE | 2019-06-25 20:39 | PN ---
DATE: 06/23/2019 PSYCHIATRIC PROGRESS NOTE This late entry 06/23/2019 covers elements not covered in my initial note. SUBJECTIVE: I met with the patient evening of 06/23/2019. Per GREGORY Torres, the patient slept 8 hours previous night. He has not been agitated, but somewhat sexually inappropriate at times blowing kisses towards a female nursing staff at night, slept until 10:30 a.m., flirtatious, but redirectable. MAN BarbaraHerman HORNE MD DR: MINOO/parul JOB#: [id number] / [id number]
[2019-06-25] MEDS: ZIPRASIDONE 40 MG CAPSULE. PO SCH (21:00)
[2019-06-25] MEDS: FAMOTIDINE 20 MG TABLET PO SCH (21:00)
[2019-06-25] MEDS: ATORVASTATIN CALCIUM 10 MG TABLET. PO SCH (21:00)
[2019-06-25] MEDS: INSULIN GLARGINE SYRINGE. SQ SCH (21:30)
--- NOTE | 2019-06-25 21:45 | PN ---
DATE: 06/23/2019 PSYCHIATRIC PROGRESS NOTE This late entry 06/23/2019 covers elements not covered in my initial note. SUBJECTIVE: I met with the patient evening of 06/23/2019. Per Brian RN, patient slept 8 hours previous night. He has not been agitated, but at times blows kisses to female staff, but then redirects. He is somewhat flirtatious at times, received Zyprexa and Atarax at 1530. REVIEW OF SYSTEMS: No CV, , pulmonary, eye, ENT system symptoms on review. Reliability poor. MENTAL STATUS EXAM: Oriented to himself. Insight, judgment, recent and remote memory, attention, concentration, fund of knowledge poor, consistent with his diagnosis. IMPRESSION: Major neurocognitive disorder, Alzheimer, vascular with delusion, depression, behavioral disturbance, post-traumatic stress disorder, anxiety disorder, unspecified; impulse control disorder, unspecified. PLAN: Continue psychotropics from initial note. He is on an adequate dosage of Provera and the Geodon is being adjusted. We will increase gradually to help improve impulse control. MAN Louie HORNE MD DR: MINOO/parul JOB#: [id number] / [id number]
--- NOTE | 2019-06-25 21:45 | PN ---
DATE: 06/24/2019 PSYCHIATRIC PROGRESS NOTE This late entry 06/24/2019 covers the elements not covered in my initial note. SUBJECTIVE: I met with the patient in the evening of 06/24/2019 and staffed at a treatment team meeting with the entire team in the morning. The patient slept 7 hours previous night. Appetite is 75%, irritable, wandering at times, resistive, but redirects. He is doing overall much better, more alert and engaged, was in recreational therapy with Mili and doing quite well. REVIEW OF SYSTEMS: No CV, , pulmonary, eye, ENT system symptoms on review. Reliability is poor. MENTAL STATUS EXAM: Oriented to himself. Insight, judgment, recent and remote memory, attention, concentration, fund of knowledge poor, consistent with his diagnosis. IMPRESSION: Major neurocognitive disorder, Alzheimer, vascular with delusion, depression, behavioral disturbance, PTSD; anxiety disorder, unspecified; impulse control disorder, unspecified. PLAN: Increase Geodon to 40 mg twice a day after he has been on 20 mg a.m., 40 mg at bedtime for 3 days, maintain Depakene, prazosin, Zoloft, Zyprexa p.r.n., hydroxyzine p.r.n. Provera 20 mg a day. Rest unchanged for now. ABIGAIL HORNE MD DR: MINOO/parul JOB#: [id number] / [id number]
--- NOTE | 2019-06-25 22:42 | PDOC ---
Exam Note: [place] Note: Please also refer to the separate dictated note~for this date of service dictated separately.~Patient seen individually. Discussed the patient with Nursing staff reviewed the chart.~Reviewed interim history and current functioning. Reviewed vital signs,~Labs/ Radiology~and current medications noted below. Continue current treatment with the changes noted in the dictated addendum note Assessment: Vital Signs/I&O: Vital Signs Date Time Temp Pulse Resp B/P (MAP) Pulse Ox O2 Delivery O2 Flow Rate FiO2 06/25/19 21:00 96 82/54 06/25/19 16:23 98.6 18 95 Room Air I & O 06/24/19 06/24/19 06/25/19 15:00 23:00 07:00 Intake Total 600 ml 200 ml 240 ml Balance 600 ml 200 ml 240 ml Labs: Laboratory Tests Test 06/25/19 06:50 06/25/19 07:09 06/25/19 11:45 06/25/19 16:53 White Blood Count 5.4 x10^3/uL (4.0-11.0) Red Blood Count 4.38 x10^6/uL (4.30-5.70) Hemoglobin 12.3 g/dL (13.0-17.5) L Hematocrit 38.5 % (39.0-53.0) L Mean Corpuscular Volume 88 fL (79-100) Mean Corpuscular Hemoglobin 28 pg (25-35) Mean Corpuscular Hemoglobin Concent 32 g/dL (31-37) Red Cell Distribution Width 15.1 % (11.5-14.5) H Platelet Count 171 x10^3/uL (140-400) Neutrophils (%) (Auto) 44 % (31-73) Lymphocytes (%) (Auto) 40 % (24-48) Monocytes (%) (Auto) 12 % (0-9) H Eosinophils (%) (Auto) 3 % (0-3) Basophils (%) (Auto) 0 % (0-3) Neutrophils # (Auto) 2.4 x10^3uL (1.8-7.7) Lymphocytes # (Auto) 2.2 x10^3/uL (1.0-4.8) Monocytes # (Auto) 0.7 x10^3/uL (0.0-1.1) Eosinophils # (Auto) 0.2 x10^3/uL (0.0-0.7) Basophils # (Auto) 0.0 x10^3/uL (0.0-0.2) Sodium Level 145 mmol/L (136-145) Potassium Level 3.6 mmol/L (3.5-5.1) Chloride Level 107 mmol/L (98-107) Carbon Dioxide Level 33 mmol/L (21-32) H Anion Gap 5 (6-14) L Blood Urea Nitrogen 27 mg/dL (8-26) H Creatinine 1.4 mg/dL (0.7-1.3) H Estimated GFR (Cockcroft-Gault) 60.1 BUN/Creatinine Ratio 19 (6-20) Glucose Level 62 mg/dL (70-99) L Calcium Level 8.4 mg/dL (8.5-10.1) L Magnesium Level 1.6 mg/dL (1.8-2.4) L Total Bilirubin 0.3 mg/dL (0.2-1.0) Aspartate Amino Transferase (AST) 12 U/L (15-37) L Alanine Aminotransferase (ALT) 16 U/L (16-63) Alkaline Phosphatase 42 U/L (46-116) L Ammonia 11 mcmol/L (11-34) Total Protein 6.7 g/dL (6.4-8.2) Albumin 2.8 g/dL (3.4-5.0) L Albumin/Globulin Ratio 0.7 (1.0-1.7) L Glucose (Fingerstick) 106 mg/dL (70-99) H 161 mg/dL (70-99) H 265 mg/dL (70-99) H Test 06/25/19 19:18 06/25/19 22:09 Glucose (Fingerstick) 250 mg/dL (70-99) H 203 mg/dL (70-99) H Current Medications: I have reviewed the current psychotropics carefully including drug interactions. Risk benefit ratio favors no change other than as noted in my dictated progress note. Diagnosis: Problems: (1) Anxiety disorder (2) Dementia in Alzheimer's disease with delusions (3) Dementia in Alzheimer's disease with depression (4) Dementia, vascular, with delusions (5) Dementia, vascular, with depression (6) Impulse control disorder ABIGAIL HORNE MD Jun 25, 2019:42
[2019-06-26 02:21] VITALS: BP 149/80
[2019-06-26 05:40] VITALS: BP 120/79
[2019-06-26] MEDS: POLYETHYLENE GLYCOL 3350 17 GM PACKET. PO SCH (08:24)
[2019-06-26] MEDS: DOCUSATE SODIUM 100 MG CAPSULE PO SCH ×2 (08:25→19:45)
[2019-06-26] MEDS: VALPROATE ACID 250 MG/5 ML ORAL SOLUTION PO SCH ×2 (08:25→19:44)
[2019-06-26] MEDS: ASPIRIN 81 MG TAB.CHEW PO SCH (08:26)
[2019-06-26] MEDS: metFORMIN XR 500 MG TAB.ER.24H PO SCH ×2 (08:26→17:00)
[2019-06-26] MEDS: SERTRALINE 100 MG TABLET. PO SCH (08:26)
[2019-06-26] MEDS: POTASSIUM CHLORIDE 20 MEQ TABLET.ER. PO SCH ×2 (08:26→19:44)
[2019-06-26] MEDS: ACETAMINOPHEN 500 MG TABLET PO SCH ×2 (08:26→19:45)
[2019-06-26] MEDS: ZIPRASIDONE 40 MG CAPSULE. PO SCH ×2 (08:26→19:45)
[2019-06-26] MEDS: medroxyPROGESTERone 5 MG TABLET PO SCH (08:26)
[2019-06-26] MEDS: FUROSEMIDE 40 MG TABLET PO SCH (08:27)
[2019-06-26] MEDS: LISINOPRIL 10 MG TABLET PO SCH (08:27)
[2019-06-26] MEDS: PRAZOSIN 1 MG CAPSULE. PO SCH ×3 (08:27→19:44)
[2019-06-26] MEDS: INSULIN LISPRO 300 UNITS/3 ML VIAL. SQ SCH ×3 (08:38→17:00)
[2019-06-26 15:49] VITALS: BP 107/70
[2019-06-26 17:18] LABS: BASO % 0 % (0-3); EOS # 0.1 x10^3/uL (0.0-0.7); EOS % 2 % (0-3); HEMATOCRIT 41.7 % (39.0-53.0); HEMOGLOBIN 13.2 g/dL (13.0-17.5); LYMPH # 2.2 x10^3/uL (1.0-4.8); LYMPH % 33 % (24-48); MEAN CORPUSCULAR HEMOGLOBIN 28 pg (25-35); MEAN CORPUSCULAR HGB CONC 32 g/dL (31-37); MEAN CORPUSCULAR VOLUME 89 fL (79-100); MONO # 0.6 x10^3/uL (0.0-1.1); MONO % 10 % (0-9); NEUT # 3.6 x10^3uL (1.8-7.7); NEUT % 55 % (31-73); PLATELET COUNT 189 x10^3/uL (140-400); RED BLOOD COUNT 4.68 x10^6/uL (4.30-5.70); RED CELL DISTRIBUTION WIDTH 15.3 % (11.5-14.5); WHITE BLOOD COUNT 6.7 x10^3/uL (4.0-11.0)
[2019-06-26 17:31] LABS: ALBUMIN 3.4 g/dL (3.4-5.0); ALBUMIN/GLOBULIN RATIO 0.7 (1.0-1.7); CALCIUM 8.9 mg/dL (8.5-10.1); CREATININE 1.4 mg/dL (0.7-1.3); GFR 60.1; POTASSIUM 4.3 mmol/L (3.5-5.1); TOTAL BILIRUBIN 0.2 mg/dL (0.2-1.0)
[2019-06-26 19:19] VITALS: BP 134/79
[2019-06-26] MEDS: FAMOTIDINE 20 MG TABLET PO SCH (19:45)
[2019-06-26] MEDS: ATORVASTATIN CALCIUM 10 MG TABLET. PO SCH (19:49)
[2019-06-26] MEDS: INSULIN GLARGINE SYRINGE. SQ SCH (19:50)
--- NOTE | 2019-06-26 21:25 | PDOC ---
Exam Note: [place] Note: Please also refer to the separate dictated note~for this date of service dictated separately.~Patient seen individually. Discussed the patient with Nursing staff reviewed the chart.~Reviewed interim history and current functioning. Reviewed vital signs,~Labs/ Radiology~and current medications noted below. Continue current treatment with the changes noted in the dictated addendum note Assessment: Vital Signs/I&O: Vital Signs Date Time Temp Pulse Resp B/P (MAP) Pulse Ox O2 Delivery O2 Flow Rate FiO2 06/26/19 19:44 79 134/79 06/26/19 19:19 97.0 20 99 06/26/19 02:21 Room Air I & O 06/25/19 06/25/19 06/26/19 15:00 23:00 07:00 Intake Total 600 ml 240 ml 420 ml Balance 600 ml 240 ml 420 ml Labs: Laboratory Tests Test 06/25/19 22:09 06/26/19 07:45 06/26/19 12:02 06/26/19 17:10 Glucose (Fingerstick) 203 mg/dL (70-99) H 154 mg/dL (70-99) H 144 mg/dL (70-99) H White Blood Count 6.7 x10^3/uL (4.0-11.0) Red Blood Count 4.68 x10^6/uL (4.30-5.70) Hemoglobin 13.2 g/dL (13.0-17.5) Hematocrit 41.7 % (39.0-53.0) Mean Corpuscular Volume 89 fL (79-100) Mean Corpuscular Hemoglobin 28 pg (25-35) Mean Corpuscular Hemoglobin Concent 32 g/dL (31-37) Red Cell Distribution Width 15.3 % (11.5-14.5) H Platelet Count 189 x10^3/uL (140-400) Neutrophils (%) (Auto) 55 % (31-73) Lymphocytes (%) (Auto) 33 % (24-48) Monocytes (%) (Auto) 10 % (0-9) H Eosinophils (%) (Auto) 2 % (0-3) Basophils (%) (Auto) 0 % (0-3) Neutrophils # (Auto) 3.6 x10^3uL (1.8-7.7) Lymphocytes # (Auto) 2.2 x10^3/uL (1.0-4.8) Monocytes # (Auto) 0.6 x10^3/uL (0.0-1.1) Eosinophils # (Auto) 0.1 x10^3/uL (0.0-0.7) Basophils # (Auto) 0.0 x10^3/uL (0.0-0.2) Sodium Level 142 mmol/L (136-145) Potassium Level 4.3 mmol/L (3.5-5.1) Chloride Level 102 mmol/L (98-107) Carbon Dioxide Level 32 mmol/L (21-32) Anion Gap 8 (6-14) Blood Urea Nitrogen 24 mg/dL (8-26) Creatinine 1.4 mg/dL (0.7-1.3) H Estimated GFR (Cockcroft-Gault) 60.1 BUN/Creatinine Ratio 17 (6-20) Glucose Level 189 mg/dL (70-99) H Calcium Level 8.9 mg/dL (8.5-10.1) Magnesium Level 1.6 mg/dL (1.8-2.4) L Total Bilirubin 0.2 mg/dL (0.2-1.0) Aspartate Amino Transferase (AST) 12 U/L (15-37) L Alanine Aminotransferase (ALT) 17 U/L (16-63) Alkaline Phosphatase 65 U/L (46-116) Total Protein 8.0 g/dL (6.4-8.2) Albumin 3.4 g/dL (3.4-5.0) Albumin/Globulin Ratio 0.7 (1.0-1.7) L Test 06/26/19 17:18 06/26/19 19:23 Glucose (Fingerstick) 192 mg/dL (70-99) H 244 mg/dL (70-99) H Current Medications: Meds: Current Medications Medications (Trade) Dose Ordered Sig/Samaria Route PRN Reason Start Time Stop Time Status Last Admin Dose Admin Ziprasidone (Geodon) 40 mg DAILY PO 06/26/19 09:00 06/26/19 08:26 I have reviewed the current psychotropics carefully including drug interactions. Risk benefit ratio favors no change other than as noted in my dictated progress note. Diagnosis: Problems: (1) Anxiety disorder (2) Dementia in Alzheimer's disease with delusions (3) Dementia in Alzheimer's disease with depression (4) Dementia, vascular, with delusions (5) Dementia, vascular, with depression (6) Impulse control disorder ABIGAIL HORNE MD Jun 26, 2019 21:25
[2019-06-27 05:47] VITALS: BP 157/85
[2019-06-27] MEDS: INSULIN LISPRO 300 UNITS/3 ML VIAL. SQ SCH ×3 (08:00→17:00)
[2019-06-27] MEDS: metFORMIN XR 500 MG TAB.ER.24H PO SCH ×2 (08:00→17:00)
[2019-06-27] MEDS: POLYETHYLENE GLYCOL 3350 17 GM PACKET. PO SCH (09:00)
[2019-06-27] MEDS: POTASSIUM CHLORIDE 20 MEQ TABLET.ER. PO SCH ×2 (09:00→19:54)
[2019-06-27] MEDS: VALPROATE ACID 250 MG/5 ML ORAL SOLUTION PO SCH ×2 (11:24→19:50)
[2019-06-27] MEDS: FUROSEMIDE 40 MG TABLET PO SCH (11:24)
[2019-06-27] MEDS: medroxyPROGESTERone 5 MG TABLET PO SCH (11:25)
[2019-06-27] MEDS: CHOLECALCIFEROL (VITAMIN D3) 50,000 UNIT CAPSULE PO SCH (11:25)
[2019-06-27] MEDS: ASPIRIN 81 MG TAB.CHEW PO SCH (11:25)
[2019-06-27] MEDS: SERTRALINE 100 MG TABLET. PO SCH (11:25)
[2019-06-27] MEDS: ACETAMINOPHEN 500 MG TABLET PO SCH ×2 (11:26→19:54)
[2019-06-27] MEDS: ZIPRASIDONE 40 MG CAPSULE. PO SCH ×2 (11:26→19:53)
[2019-06-27] MEDS: LISINOPRIL 10 MG TABLET PO SCH (11:26)
[2019-06-27] MEDS: DOCUSATE SODIUM 100 MG CAPSULE PO SCH ×2 (11:26→19:50)
[2019-06-27] MEDS: PRAZOSIN 1 MG CAPSULE. PO SCH ×2 (12:01→19:51)
[2019-06-27 15:30] VITALS: BP 93/65
[2019-06-27] MEDS: FAMOTIDINE 20 MG TABLET PO SCH (19:52)
[2019-06-27] MEDS: ATORVASTATIN CALCIUM 10 MG TABLET. PO SCH (19:53)
[2019-06-27] MEDS: INSULIN GLARGINE SYRINGE. SQ SCH (19:55)
--- NOTE | 2019-06-27 21:21 | PDOC ---
Exam Note: [place] Note: Please also refer to the separate dictated note~for this date of service dictated separately.~Patient seen individually. Discussed the patient with Nursing staff reviewed the chart.~Reviewed interim history and current functioning. Reviewed vital signs,~Labs/ Radiology~and current medications noted below. Continue current treatment with the changes noted in the dictated addendum note Assessment: Vital Signs/I&O: Vital Signs Date Time Temp Pulse Resp B/P (MAP) Pulse Ox O2 Delivery O2 Flow Rate FiO2 06/27/19 19:51 80 93/65 06/27/19 15:30 97.5 20 98 06/26/19 02:21 Room Air I & O 06/26/19 06/26/19 06/27/19 15:00 23:00 07:00 Intake Total 1020 ml 600 ml Balance 1020 ml 600 ml Labs: Laboratory Tests Test 06/27/19 07:32 06/27/19 12:08 06/27/19 17:06 06/27/19 19:12 Glucose (Fingerstick) 115 mg/dL (70-99) H 169 mg/dL (70-99) H 107 mg/dL (70-99) H 157 mg/dL (70-99) H Current Medications: Meds: Current Medications Medications (Trade) Dose Ordered Sig/Samaria Route PRN Reason Start Time Stop Time Status Last Admin Dose Admin Medroxyprogesterone Acetate (Provera) 25 mg DAILY PO 06/27/19 09:00 06/27/19 11:25 I have reviewed the current psychotropics carefully including drug interactions. Risk benefit ratio favors no change other than as noted in my dictated progress note. Diagnosis: Problems: (1) Anxiety disorder (2) Dementia in Alzheimer's disease with delusions (3) Dementia in Alzheimer's disease with depression (4) Dementia, vascular, with delusions (5) Dementia, vascular, with depression (6) Impulse control disorder ABIGAIL HORNE MD Jun 27, 2019 21:21
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
--- NOTE | 2019-06-27 22:35 | PN ---
DATE: 06/25/2019 PSYCHIATRIC PROGRESS NOTE This late entry 06/25/2019 covers elements not covered in my initial note. SUBJECTIVE: I met with the patient evening of 06/25/2019. Per GREGORY Bolden, the patient slept reasonably previous night. He has been somewhat flirtatious, blowing kisses to nursing staff, but not touching anyone inappropriately. Prazosin was held in the morning due to blood pressure being low. Slept 6 hours previous night, compliant with medications. REVIEW OF SYSTEMS: No CV, , pulmonary, eye, ENT system symptoms on review. Reliability poor. MENTAL STATUS EXAM: Oriented to himself. Insight, judgment, recent and remote memory, attention, concentration, fund of knowledge poor, consistent with his diagnosis mentioned in my initial note. IMPRESSION: Major neurocognitive disorder, Alzheimer vascular with delusion, depression, behavioral disturbance, PTSD; anxiety disorder, unspecified; impulse control disorder, unspecified. PLAN: No change from initial note. We may need to reduce prazosin if his blood pressure continues to be low and we have increased the Provera and adjusted the Depakote to a therapeutic level. MAN Louie HORNE MD DR: MINOO/parul JOB#: [id number] / [id number]
[2019-06-28 06:06] VITALS: BP 140/84
[2019-06-28] MEDS: POTASSIUM CHLORIDE 20 MEQ TABLET.ER. PO SCH ×2 (08:30→19:48)
[2019-06-28] MEDS: LISINOPRIL 10 MG TABLET PO SCH (08:30)
[2019-06-28] MEDS: ACETAMINOPHEN 500 MG TABLET PO SCH ×2 (08:31→19:47)
[2019-06-28] MEDS: metFORMIN XR 500 MG TAB.ER.24H PO SCH ×2 (08:31→17:03)
[2019-06-28] MEDS: VALPROATE ACID 250 MG/5 ML ORAL SOLUTION PO SCH ×2 (08:31→19:47)
[2019-06-28] MEDS: DOCUSATE SODIUM 100 MG CAPSULE PO SCH ×2 (08:32→19:48)
[2019-06-28] MEDS: medroxyPROGESTERone 5 MG TABLET PO SCH (08:32)
[2019-06-28] MEDS: SERTRALINE 100 MG TABLET. PO SCH (08:32)
[2019-06-28] MEDS: ASPIRIN 81 MG TAB.CHEW PO SCH (08:32)
[2019-06-28] MEDS: POLYETHYLENE GLYCOL 3350 17 GM PACKET. PO SCH (08:32)
[2019-06-28] MEDS: ZIPRASIDONE 40 MG CAPSULE. PO SCH ×2 (08:32→19:48)
[2019-06-28] MEDS: FUROSEMIDE 40 MG TABLET PO SCH (08:32)
[2019-06-28] MEDS: INSULIN LISPRO 300 UNITS/3 ML VIAL. SQ SCH ×3 (08:39→17:10)
[2019-06-28] MEDS: PRAZOSIN 1 MG CAPSULE. PO SCH ×2 (12:36→19:48)
[2019-06-28 16:17] VITALS: BP 127/78
[2019-06-28] MEDS: ATORVASTATIN CALCIUM 10 MG TABLET. PO SCH (19:48)
[2019-06-28] MEDS: FAMOTIDINE 20 MG TABLET PO SCH (19:48)
[2019-06-28] MEDS: INSULIN GLARGINE SYRINGE. SQ SCH (19:53)
--- NOTE | 2019-06-28 21:42 | PDOC ---
Exam Note: [place] Note: Please also refer to the separate dictated note~for this date of service dictated separately.~Patient seen individually. Discussed the patient with Nursing staff reviewed the chart.~Reviewed interim history and current functioning. Reviewed vital signs,~Labs/ Radiology~and current medications noted below. Continue current treatment with the changes noted in the dictated addendum note Assessment: Vital Signs/I&O: Vital Signs Date Time Temp Pulse Resp B/P (MAP) Pulse Ox O2 Delivery O2 Flow Rate FiO2 06/28/19 19:48 82 127/78 06/28/19 16:17 98.5 16 99 06/26/19 02:21 Room Air I & O 06/27/19 06/27/19 06/28/19 15:00 23:00 07:00 Intake Total 360 ml 240 ml 360 ml Balance 360 ml 240 ml 360 ml Labs: Laboratory Tests Test 06/28/19 07:27 06/28/19 12:08 06/28/19 16:40 06/28/19 19:20 Glucose (Fingerstick) 156 mg/dL (70-99) H 125 mg/dL (70-99) H 106 mg/dL (70-99) H 150 mg/dL (70-99) H Current Medications: I have reviewed the current psychotropics carefully including drug interactions. Risk benefit ratio favors no change other than as noted in my dictated progress note. Diagnosis: Problems: (1) Anxiety disorder (2) Dementia in Alzheimer's disease with delusions (3) Dementia in Alzheimer's disease with depression (4) Dementia, vascular, with delusions (5) Dementia, vascular, with depression (6) Impulse control disorder ABIGAIL HORNE MD Jun 28, 2019 21:42
--- NOTE | 2019-06-29 00:44 | PN ---
DATE: 06/27/2019 PSYCHIATRIC PROGRESS NOTE This late entry 06/27/2019 covers elements not covered in my initial note. SUBJECTIVE: I met with the patient evening of 06/27/2019. Overall, per nursing report, the patient had a "decent day." He was irritable in the morning. No PRNs use during the day. REVIEW OF SYSTEMS: No CV, , pulmonary, eye, ENT system symptoms on review. Reliability poor. MENTAL STATUS EXAM: Oriented to himself. Insight, judgment, recent and remote memory, attention, concentration, fund of knowledge poor, consistent with his diagnosis mentioned in my initial note. PLAN: Change the Provera 25 mg a day to Depo-Provera per pharmacy. Continue Geodon 40 mg b.i.d., prazosin 5 mg a day, Zoloft 100 mg a day, hydroxyzine and Zyprexa p.r.n. Depakene liquid 625 mg b.i.d. Valproic acid level therapeutic at 53. ABIGAIL HORNE MD DR: MINOO/parul JOB#: [id number] / [id number]
[2019-06-29 06:25] VITALS: BP 145/79
[2019-06-29] MEDS: INSULIN LISPRO 300 UNITS/3 ML VIAL. SQ SCH ×3 (08:00→17:27)
[2019-06-29] MEDS: VALPROATE ACID 250 MG/5 ML ORAL SOLUTION PO SCH ×2 (08:33→21:00)
[2019-06-29] MEDS: ACETAMINOPHEN 500 MG TABLET PO SCH ×2 (08:33→21:00)
[2019-06-29] MEDS: medroxyPROGESTERone 5 MG TABLET PO SCH (08:33)
[2019-06-29] MEDS: POTASSIUM CHLORIDE 20 MEQ TABLET.ER. PO SCH ×2 (08:34→21:00)
[2019-06-29] MEDS: metFORMIN XR 500 MG TAB.ER.24H PO SCH ×2 (08:34→17:24)
[2019-06-29] MEDS: FUROSEMIDE 40 MG TABLET PO SCH (08:34)
[2019-06-29] MEDS: LISINOPRIL 10 MG TABLET PO SCH (08:34)
[2019-06-29] MEDS: ASPIRIN 81 MG TAB.CHEW PO SCH (08:34)
[2019-06-29] MEDS: POLYETHYLENE GLYCOL 3350 17 GM PACKET. PO SCH (08:35)
[2019-06-29] MEDS: ZIPRASIDONE 60 MG CAPSULE. PO SCH ×2 (08:35→21:00)
[2019-06-29] MEDS: DOCUSATE SODIUM 100 MG CAPSULE PO SCH ×2 (08:35→21:00)
[2019-06-29] MEDS: SERTRALINE 100 MG TABLET. PO SCH (08:35)
[2019-06-29] MEDS: PRAZOSIN 1 MG CAPSULE. PO SCH ×2 (12:25→21:00)
--- NOTE | 2019-06-29 12:55 | EKG ---
[address] [address] Test Date: 2019-06-29 Test Time: 10:59:18 Pat Name: TOMÁS OSORIO Department: Room: [address] [place] [address] Gender: M Nurse Consultant: BRUNO : 1945 Requested By: ABIGAIL HORNE Order Number: [id number] Reading MD: Measurements Intervals [place] Rate: 84 P: 54 VA: 196 QRS: -23 QRSD: 68 T: -5 QT: 342 QTc: 407 Interpretive Statements SINUS RHYTHM LEFTWARD AXIS T ABNORMALITY IN HIGH LATERAL LEADS ABNORMAL ECG RI6.02 No previous ECG available for comparison
[2019-06-29] MEDS: hydrOXYzine HCL 25 MG TABLET PO PRN (14:30)
[2019-06-29 15:47] VITALS: BP 94/52
[2019-06-29 19:45] VITALS: BP 90/54
[2019-06-29 20:38] VITALS: BP 99/64
[2019-06-29] MEDS: INSULIN GLARGINE SYRINGE. SQ SCH (20:41)
[2019-06-29] MEDS: ATORVASTATIN CALCIUM 10 MG TABLET. PO SCH (21:00)
[2019-06-29] MEDS: FAMOTIDINE 20 MG TABLET PO SCH (21:00)
--- NOTE | 2019-06-29 21:24 | PDOC ---
Exam Note: [place] Note: Please also refer to the separate dictated note~for this date of service dictated separately.~Patient seen individually. Discussed the patient with Nursing staff reviewed the chart.~Reviewed interim history and current functioning. Reviewed vital signs,~Labs/ Radiology~and current medications noted below. Continue current treatment with the changes noted in the dictated addendum note Assessment: Vital Signs/I&O: Vital Signs Date Time Temp Pulse Resp B/P (MAP) Pulse Ox O2 Delivery O2 Flow Rate FiO2 06/29/19 20:38 92 99/64 (76) 06/29/19 15:47 98.0 20 94 06/26/19 02:21 Room Air I & O 06/28/19 06/28/19 06/29/19 15:00 23:00 07:00 Intake Total 800 ml 480 ml 360 ml Balance 800 ml 480 ml 360 ml Labs: Laboratory Tests Test 06/29/19 07:45 06/29/19 11:41 Glucose (Fingerstick) 61 mg/dL (70-99) L 228 mg/dL (70-99) H Current Medications: Meds: Current Medications Medications (Trade) Dose Ordered Sig/Samaria Route PRN Reason Start Time Stop Time Status Last Admin Dose Admin Ziprasidone (Geodon) 60 mg BID PO 06/29/19 09:00 06/29/19 08:35 I have reviewed the current psychotropics carefully including drug interactions. Risk benefit ratio favors no change other than as noted in my dictated progress note. Diagnosis: Problems: (1) Anxiety disorder (2) Dementia in Alzheimer's disease with delusions (3) Dementia in Alzheimer's disease with depression (4) Dementia, vascular, with delusions (5) Dementia, vascular, with depression (6) Impulse control disorder ABIGAIL HORNE MD Jun 29, 2019 21:24
[2019-06-29 21:30] VITALS: BP 95/63
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
[2019-06-30 06:08] VITALS: BP 119/75
[2019-06-30] MEDS: metFORMIN XR 500 MG TAB.ER.24H PO SCH ×2 (08:00→17:52)
[2019-06-30] MEDS: INSULIN LISPRO 300 UNITS/3 ML VIAL. SQ SCH ×3 (08:00→17:54)
[2019-06-30] MEDS: POLYETHYLENE GLYCOL 3350 17 GM PACKET. PO SCH (09:00)
[2019-06-30] MEDS: LISINOPRIL 10 MG TABLET PO SCH (09:00)
[2019-06-30] MEDS: ASPIRIN 81 MG TAB.CHEW PO SCH (09:00)
[2019-06-30] MEDS: ACETAMINOPHEN 500 MG TABLET PO SCH ×2 (09:00→19:37)
[2019-06-30] MEDS: POTASSIUM CHLORIDE 20 MEQ TABLET.ER. PO SCH ×2 (09:00→19:37)
[2019-06-30] MEDS: DOCUSATE SODIUM 100 MG CAPSULE PO SCH ×2 (09:00→19:36)
[2019-06-30] MEDS: VALPROATE ACID 250 MG/5 ML ORAL SOLUTION PO SCH ×2 (09:08→19:36)
[2019-06-30] MEDS: medroxyPROGESTERone 5 MG TABLET PO SCH (09:08)
[2019-06-30] MEDS: ZIPRASIDONE 60 MG CAPSULE. PO SCH ×2 (09:09→19:36)
[2019-06-30] MEDS: SERTRALINE 100 MG TABLET. PO SCH (09:09)
[2019-06-30] MEDS: FUROSEMIDE 40 MG TABLET PO SCH (09:10)
[2019-06-30] MEDS: hydrOXYzine HCL 25 MG TABLET PO PRN ×2 (09:10→17:52)
[2019-06-30] MEDS: PRAZOSIN 1 MG CAPSULE. PO SCH ×2 (12:38→19:37)
[2019-06-30 15:56] VITALS: BP 96/63
[2019-06-30 19:33] VITALS: BP 146/83
[2019-06-30] MEDS: FAMOTIDINE 20 MG TABLET PO SCH (19:37)
[2019-06-30] MEDS: ATORVASTATIN CALCIUM 10 MG TABLET. PO SCH (19:38)
[2019-06-30] MEDS: INSULIN GLARGINE SYRINGE. SQ SCH (19:46)
--- NOTE | 2019-06-30 21:51 | PDOC ---
Exam Note: [place] Note: Please also refer to the separate dictated note~for this date of service dictated separately.~Patient seen individually. Discussed the patient with Nursing staff reviewed the chart.~Reviewed interim history and current functioning. Reviewed vital signs,~Labs/ Radiology~and current medications noted below. Continue current treatment with the changes noted in the dictated addendum note Assessment: Vital Signs/I&O: Vital Signs Date Time Temp Pulse Resp B/P (MAP) Pulse Ox O2 Delivery O2 Flow Rate FiO2 06/30/19 19:37 67 146/83 06/30/19 19:33 17 98 Room Air 06/30/19 15:56 98.2 I & O 06/29/19 06/29/19 06/30/19 15:00 23:00 07:00 Intake Total 900 ml 240 ml 240 ml Balance 900 ml 240 ml 240 ml Current Medications: Meds: Current Medications Medications (Trade) Dose Ordered Sig/Samaria Route PRN Reason Start Time Stop Time Status Last Admin Dose Admin Ziprasidone (Geodon) 60 mg QHS PO 06/30/19 21:00 06/30/19 19:36 I have reviewed the current psychotropics carefully including drug interactions. Risk benefit ratio favors no change other than as noted in my dictated progress note. Diagnosis: Problems: (1) Anxiety disorder (2) Dementia in Alzheimer's disease with delusions (3) Dementia in Alzheimer's disease with depression (4) Dementia, vascular, with delusions (5) Dementia, vascular, with depression (6) Impulse control disorder ABIGAIL HORNE MD Jun 30, 2019 21:51
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
[2019-07-01 06:37] VITALS: BP 143/74
[2019-07-01] MEDS: INSULIN LISPRO 300 UNITS/3 ML VIAL. SQ SCH ×3 (08:00→17:19)
[2019-07-01] MEDS ORDERED: medroxyPROGESTERone IM 150 MG/ML VIAL. IM SCH (09:00)
[2019-07-01] MEDS: POLYETHYLENE GLYCOL 3350 17 GM PACKET. PO SCH (11:34)
[2019-07-01] MEDS: LISINOPRIL 5 MG TABLET. PO SCH (11:34)
[2019-07-01] MEDS: ZIPRASIDONE 80 MG CAPSULE. PO SCH (11:34)
[2019-07-01] MEDS: VALPROATE ACID 250 MG/5 ML ORAL SOLUTION PO SCH ×2 (11:34→21:43)
[2019-07-01] MEDS: ACETAMINOPHEN 500 MG TABLET PO SCH ×2 (11:35→21:44)
[2019-07-01] MEDS: POTASSIUM CHLORIDE 20 MEQ TABLET.ER. PO SCH ×2 (11:35→21:44)
[2019-07-01] MEDS: SERTRALINE 100 MG TABLET. PO SCH (11:35)
[2019-07-01] MEDS: FUROSEMIDE 40 MG TABLET PO SCH (11:35)
[2019-07-01] MEDS: metFORMIN XR 500 MG TAB.ER.24H PO SCH ×2 (11:36→16:51)
[2019-07-01] MEDS: DOCUSATE SODIUM 100 MG CAPSULE PO SCH ×2 (11:36→21:44)
[2019-07-01] MEDS: ASPIRIN 81 MG TAB.CHEW PO SCH (11:36)
[2019-07-01] MEDS: PRAZOSIN 1 MG CAPSULE. PO SCH ×2 (12:31→21:00)
[2019-07-01] MEDS ORDERED: CHOL500021 PO (16:02)
[2019-07-01] MEDS ORDERED: DEXT15LI PO (16:03)
[2019-07-01] MEDS ORDERED: DOCU100C28 PO (16:04)
[2019-07-01] MEDS ORDERED: INSU100I13 SQ (16:05)
[2019-07-01] MEDS ORDERED: FURO40TA4 PO (16:05)
[2019-07-01] MEDS ORDERED: INSU100V SQ (16:06)
[2019-07-01] MEDS ORDERED: MAG30ORA PO (16:07)
[2019-07-01] MEDS ORDERED: MAGN24003 PO (16:08)
[2019-07-01] MEDS ORDERED: METH57CR17 TP (16:09)
[2019-07-01] MEDS ORDERED: MEDR150D9 IM (16:10)
[2019-07-01] MEDS ORDERED: POLY17PO5 PO (16:11)
[2019-07-01] MEDS ORDERED: PRAZ1CAP PO (16:11)
[2019-07-01] MEDS ORDERED: PRAZ2CAP PO (16:12)
[2019-07-01] MEDS ORDERED: ZIPR40CA2 PO ×2 (16:13→16:14)
[2019-07-01] MEDS ORDERED: VALP250S3 PO (16:13)
[2019-07-01] MEDS ORDERED: GUAI237L83 PO (16:17)
[2019-07-01] MEDS ORDERED: HYDR25TA PO (16:18)
[2019-07-01 16:21] VITALS: BP 132/83
[2019-07-01 19:48] VITALS: BP 91/59
[2019-07-01] MEDS: INSULIN GLARGINE SYRINGE. SQ SCH (20:52)
--- NOTE | 2019-07-01 21:31 | PDOC ---
Exam Note: [place] Note: Please also refer to the separate dictated note~for this date of service dictated separately.~Patient seen individually. Discussed the patient with Nursing staff reviewed the chart.~Reviewed interim history and current functioning. Reviewed vital signs,~Labs/ Radiology~and current medications noted below. Continue current treatment with the changes noted in the dictated addendum note Assessment: Vital Signs/I&O: Vital Signs Date Time Temp Pulse Resp B/P (MAP) Pulse Ox O2 Delivery O2 Flow Rate FiO2 07/01/19 19:48 98.3 109 17 91/59 (70) 98 Room Air I & O 06/30/19 06/30/19 07/01/19 14:59 22:59 06:59 Intake Total 600 ml 120 ml 240 ml Balance 600 ml 120 ml 240 ml Current Medications: Meds: Current Medications Medications (Trade) Dose Ordered Sig/Samaria Route PRN Reason Start Time Stop Time Status Last Admin Dose Admin Ziprasidone (Geodon) 80 mg DAILY PO 07/01/19 09:00 07/01/19 11:34 Lisinopril (Prinivil) 5 mg DAILY PO 07/01/19 09:00 07/01/19 11:34 Medroxyprogesterone Acetate (Depo-Provera Im) 150 mg WEEKLY IM 07/01/19 09:00 07/01/19 11:36 I have reviewed the current psychotropics carefully including drug interactions. Risk benefit ratio favors no change other than as noted in my dictated progress note. Diagnosis: Problems: (1) Anxiety disorder (2) Dementia in Alzheimer's disease with delusions (3) Dementia in Alzheimer's disease with depression (4) Dementia, vascular, with delusions (5) Dementia, vascular, with depression (6) Impulse control disorder ABIGAIL HORNE MD Jul 01, 2019 21:31
[2019-07-01 21:37] VITALS: BP 104/66
[2019-07-01] MEDS: FAMOTIDINE 20 MG TABLET PO SCH (21:44)
[2019-07-01] MEDS: ZIPRASIDONE 60 MG CAPSULE. PO SCH (21:44)
[2019-07-01] MEDS: ATORVASTATIN CALCIUM 10 MG TABLET. PO SCH (21:45)
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
[2019-07-02 06:26] VITALS: BP 146/78
[2019-07-02] MEDS: INSULIN LISPRO 300 UNITS/3 ML VIAL. SQ SCH ×3 (08:00→17:00)
[2019-07-02] MEDS: POLYETHYLENE GLYCOL 3350 17 GM PACKET. PO SCH (08:23)
[2019-07-02] MEDS: ZIPRASIDONE 80 MG CAPSULE. PO SCH (08:24)
[2019-07-02] MEDS: metFORMIN XR 500 MG TAB.ER.24H PO SCH ×2 (08:24→17:00)
[2019-07-02] MEDS: ACETAMINOPHEN 500 MG TABLET PO SCH ×2 (08:24→20:47)
[2019-07-02] MEDS: ASPIRIN 81 MG TAB.CHEW PO SCH (08:24)
[2019-07-02] MEDS: VALPROATE ACID 250 MG/5 ML ORAL SOLUTION PO SCH ×2 (08:24→20:46)
[2019-07-02] MEDS: DOCUSATE SODIUM 100 MG CAPSULE PO SCH ×2 (08:24→20:46)
[2019-07-02] MEDS: SERTRALINE 100 MG TABLET. PO SCH (08:24)
[2019-07-02] MEDS: LISINOPRIL 5 MG TABLET. PO SCH (08:25)
[2019-07-02] MEDS: FUROSEMIDE 40 MG TABLET PO SCH (08:25)
[2019-07-02] MEDS: POTASSIUM CHLORIDE 20 MEQ TABLET.ER. PO SCH ×2 (08:25→20:46)
[2019-07-02] MEDS ORDERED: FAMO20TA5 PO (11:27)
[2019-07-02] MEDS: PRAZOSIN 1 MG CAPSULE. PO SCH ×2 (12:28→20:47)
[2019-07-02 15:57] VITALS: BP 148/76
--- NOTE | 2019-07-02 20:37 | PN ---
DATE: 07/01/2019 This late entry, 07/01, covers elements not covered in my initial note. SUBJECTIVE: I met with the patient evening of 07/01. Per GREGORY Torres, the patient slept 7 hours previous night. He takes his medications crushed and Gatorade. He has made some inappropriate comments previous night, slept until noon. Compliant with medications, does go to the day room. He has been started on Depo-Provera per pharmacy consult. REVIEW OF SYSTEMS: No CV, , pulmonary, eye, ENT system symptoms on review. Reliability poor. MENTAL STATUS EXAM: Oriented to himself. Insight, judgment, recent and remote memory, attention, concentration, fund of knowledge poor, consistent with his diagnosis mentioned in my initial note. PLAN: No change from initial note. MAN Louie HORNE MD DR: MINOO/parul JOB#: [id number] / [id number]
[2019-07-02] MEDS: INSULIN GLARGINE SYRINGE. SQ SCH (20:44)
[2019-07-02] MEDS: FAMOTIDINE 20 MG TABLET PO SCH (20:46)
[2019-07-02] MEDS: ZIPRASIDONE 60 MG CAPSULE. PO SCH (20:46)
[2019-07-02] MEDS: ATORVASTATIN CALCIUM 10 MG TABLET. PO SCH (20:47)
--- NOTE | 2019-07-02 21:28 | PDOC ---
Exam Note: [place] Note: Please also refer to the separate dictated note~for this date of service dictated separately.~Patient seen individually. Discussed the patient with Nursing staff reviewed the chart.~Reviewed interim history and current functioning. Reviewed vital signs,~Labs/ Radiology~and current medications noted below. Continue current treatment with the changes noted in the dictated addendum note Assessment: Vital Signs/I&O: Vital Signs Date Time Temp Pulse Resp B/P (MAP) Pulse Ox O2 Delivery O2 Flow Rate FiO2 07/02/19 20:47 89 104/63 07/02/19 15:57 98.2 20 99 07/01/19 21:37 Room Air I & O 07/01/19 07/01/19 07/02/19 15:00 23:00 07:00 Intake Total 600 ml 480 ml 240 ml Balance 600 ml 480 ml 240 ml Current Medications: I have reviewed the current psychotropics carefully including drug interactions. Risk benefit ratio favors no change other than as noted in my dictated progress note. Diagnosis: Problems: (1) Anxiety disorder (2) Dementia in Alzheimer's disease with delusions (3) Dementia in Alzheimer's disease with depression (4) Dementia, vascular, with delusions (5) Dementia, vascular, with depression (6) Impulse control disorder ABIGAIL HORNE MD Jul 02, 2019 21:28
[2019-07-03 06:18] VITALS: BP 154/89
[2019-07-03 06:53] LABS: BASO % 0 % (0-3); EOS # 0.1 x10^3/uL (0.0-0.7); EOS % 3 % (0-3); HEMATOCRIT 38.2 % (39.0-53.0); HEMOGLOBIN 12.1 g/dL (13.0-17.5); LYMPH # 1.9 x10^3/uL (1.0-4.8); LYMPH % 39 % (24-48); MEAN CORPUSCULAR HEMOGLOBIN 28 pg (25-35); MEAN CORPUSCULAR HGB CONC 32 g/dL (31-37); MEAN CORPUSCULAR VOLUME 89 fL (79-100); MONO # 0.6 x10^3/uL (0.0-1.1); MONO % 11 % (0-9); NEUT # 2.4 x10^3uL (1.8-7.7); NEUT % 47 % (31-73); PLATELET COUNT 155 x10^3/uL (140-400); RED BLOOD COUNT 4.31 x10^6/uL (4.30-5.70); RED CELL DISTRIBUTION WIDTH 15.2 % (11.5-14.5)
[2019-07-03 06:56] LABS: ALBUMIN 2.7 g/dL (3.4-5.0); ALBUMIN/GLOBULIN RATIO 0.7 (1.0-1.7); CALCIUM 8.5 mg/dL (8.5-10.1); CREATININE 1.4 mg/dL (0.7-1.3); GFR 60.1; POTASSIUM 3.9 mmol/L (3.5-5.1); TOTAL BILIRUBIN 0.3 mg/dL (0.2-1.0); TOTAL PROTEIN 6.5 g/dL (6.4-8.2)
[2019-07-03] MEDS: INSULIN LISPRO 300 UNITS/3 ML VIAL. SQ SCH ×3 (08:00→17:00)
[2019-07-03] MEDS: metFORMIN XR 500 MG TAB.ER.24H PO SCH ×2 (08:55→17:17)
[2019-07-03] MEDS: ASPIRIN 81 MG TAB.CHEW PO SCH (08:56)
[2019-07-03] MEDS: VALPROATE ACID 250 MG/5 ML ORAL SOLUTION PO SCH ×2 (08:56→20:31)
[2019-07-03] MEDS: POLYETHYLENE GLYCOL 3350 17 GM PACKET. PO SCH (08:57)
[2019-07-03] MEDS: LISINOPRIL 5 MG TABLET. PO SCH (08:57)
[2019-07-03] MEDS: DOCUSATE SODIUM 100 MG CAPSULE PO SCH ×2 (08:57→20:33)
[2019-07-03] MEDS: SERTRALINE 100 MG TABLET. PO SCH (08:57)
[2019-07-03] MEDS: ZIPRASIDONE 80 MG CAPSULE. PO SCH (08:57)
[2019-07-03] MEDS: ACETAMINOPHEN 500 MG TABLET PO SCH ×2 (08:57→20:33)
[2019-07-03] MEDS: POTASSIUM CHLORIDE 20 MEQ TABLET.ER. PO SCH ×2 (08:57→20:32)
[2019-07-03] MEDS: FUROSEMIDE 40 MG TABLET PO SCH (08:57)
[2019-07-03] MEDS: PRAZOSIN 1 MG CAPSULE. PO SCH ×2 (12:14→20:34)
[2019-07-03 16:00] VITALS: BP 94/52
[2019-07-03 16:11] VITALS: BP 60/43
[2019-07-03] MEDS: ATORVASTATIN CALCIUM 10 MG TABLET. PO SCH (20:32)
[2019-07-03] MEDS: ZIPRASIDONE 60 MG CAPSULE. PO SCH (20:32)
[2019-07-03] MEDS: FAMOTIDINE 20 MG TABLET PO SCH (20:33)
[2019-07-03] MEDS: INSULIN GLARGINE SYRINGE. SQ SCH (20:35)
--- NOTE | 2019-07-03 22:10 | PDOC ---
Exam Note: [place] Note: Please also refer to the separate dictated note~for this date of service dictated separately.~Patient seen individually. Discussed the patient with Nursing staff reviewed the chart.~Reviewed interim history and current functioning. Reviewed vital signs,~Labs/ Radiology~and current medications noted below. Continue current treatment with the changes noted in the dictated addendum note Assessment: Vital Signs/I&O: Vital Signs Date Time Temp Pulse Resp B/P (MAP) Pulse Ox O2 Delivery O2 Flow Rate FiO2 07/03/19 20:34 83 90/62 07/03/19 16:11 97.3 16 96 07/01/19 21:37 Room Air I & O 07/02/19 07/02/19 07/03/19 15:00 23:00 07:00 Intake Total 720 ml 420 ml Balance 720 ml 420 ml Labs: Laboratory Tests Test 07/03/19 06:17 White Blood Count 5.0 x10^3/uL (4.0-11.0) Red Blood Count 4.31 x10^6/uL (4.30-5.70) Hemoglobin 12.1 g/dL (13.0-17.5) L Hematocrit 38.2 % (39.0-53.0) L Mean Corpuscular Volume 89 fL (79-100) Mean Corpuscular Hemoglobin 28 pg (25-35) Mean Corpuscular Hemoglobin Concent 32 g/dL (31-37) Red Cell Distribution Width 15.2 % (11.5-14.5) H Platelet Count 155 x10^3/uL (140-400) Neutrophils (%) (Auto) 47 % (31-73) Lymphocytes (%) (Auto) 39 % (24-48) Monocytes (%) (Auto) 11 % (0-9) H Eosinophils (%) (Auto) 3 % (0-3) Basophils (%) (Auto) 0 % (0-3) Neutrophils # (Auto) 2.4 x10^3uL (1.8-7.7) Lymphocytes # (Auto) 1.9 x10^3/uL (1.0-4.8) Monocytes # (Auto) 0.6 x10^3/uL (0.0-1.1) Eosinophils # (Auto) 0.1 x10^3/uL (0.0-0.7) Basophils # (Auto) 0.0 x10^3/uL (0.0-0.2) Sodium Level 145 mmol/L (136-145) Potassium Level 3.9 mmol/L (3.5-5.1) Chloride Level 106 mmol/L (98-107) Carbon Dioxide Level 36 mmol/L (21-32) H Anion Gap 3 (6-14) L Blood Urea Nitrogen 22 mg/dL (8-26) Creatinine 1.4 mg/dL (0.7-1.3) H Estimated GFR (Cockcroft-Gault) 60.1 BUN/Creatinine Ratio 16 (6-20) Glucose Level 64 mg/dL (70-99) L Calcium Level 8.5 mg/dL (8.5-10.1) Total Bilirubin 0.3 mg/dL (0.2-1.0) Aspartate Amino Transferase (AST) 10 U/L (15-37) L Alanine Aminotransferase (ALT) 13 U/L (16-63) L Alkaline Phosphatase 47 U/L (46-116) Total Protein 6.5 g/dL (6.4-8.2) Albumin 2.7 g/dL (3.4-5.0) L Albumin/Globulin Ratio 0.7 (1.0-1.7) L Current Medications: I have reviewed the current psychotropics carefully including drug interactions. Risk benefit ratio favors no change other than as noted in my dictated progress note. Diagnosis: Problems: (1) Anxiety disorder (2) Dementia in Alzheimer's disease with delusions (3) Dementia in Alzheimer's disease with depression (4) Dementia, vascular, with delusions (5) Dementia, vascular, with depression (6) Impulse control disorder ABIGAIL HORNE MD Jul 03, 2019 22:10
[2019-07-04 06:35] VITALS: BP 152/77
[2019-07-04] MEDS: VALPROATE ACID 250 MG/5 ML ORAL SOLUTION PO SCH ×2 (07:55→20:12)
[2019-07-04] MEDS: ASPIRIN 81 MG TAB.CHEW PO SCH (07:55)
[2019-07-04] MEDS: LISINOPRIL 5 MG TABLET. PO SCH (07:55)
[2019-07-04] MEDS: SERTRALINE 100 MG TABLET. PO SCH (07:55)
[2019-07-04] MEDS: metFORMIN XR 500 MG TAB.ER.24H PO SCH ×2 (07:55→17:04)
[2019-07-04] MEDS: CHOLECALCIFEROL (VITAMIN D3) 50,000 UNIT CAPSULE PO SCH (07:55)
[2019-07-04] MEDS: ZIPRASIDONE 80 MG CAPSULE. PO SCH (07:55)
[2019-07-04] MEDS: POTASSIUM CHLORIDE 20 MEQ TABLET.ER. PO SCH ×2 (07:56→20:10)
[2019-07-04] MEDS: ACETAMINOPHEN 500 MG TABLET PO SCH ×2 (07:56→20:11)
[2019-07-04] MEDS: DOCUSATE SODIUM 100 MG CAPSULE PO SCH ×2 (07:56→20:12)
[2019-07-04] MEDS: FUROSEMIDE 40 MG TABLET PO SCH (07:56)
[2019-07-04] MEDS: POLYETHYLENE GLYCOL 3350 17 GM PACKET. PO SCH (07:57)
[2019-07-04] MEDS: INSULIN LISPRO 300 UNITS/3 ML VIAL. SQ SCH ×3 (08:05→17:10)
[2019-07-04 11:48] VITALS: BP 123/77
[2019-07-04] MEDS: PRAZOSIN 1 MG CAPSULE. PO SCH ×2 (12:20→20:13)
[2019-07-04 16:05] VITALS: BP 105/63
[2019-07-04] MEDS: ZIPRASIDONE 40 MG CAPSULE. PO SCH (20:09)
[2019-07-04] MEDS: FAMOTIDINE 20 MG TABLET PO SCH (20:10)
[2019-07-04] MEDS: ATORVASTATIN CALCIUM 10 MG TABLET. PO SCH (20:10)
[2019-07-04] MEDS: INSULIN GLARGINE SYRINGE. SQ SCH (20:11)
--- NOTE | 2019-07-04 21:40 | PN ---
DATE: 07/02/2019 PSYCHIATRIC PROGRESS NOTE This late entry 07/02/2019 covers elements not covered in my initial note. SUBJECTIVE: I met with the patient evening of 07/02/2019 and staffed at a treatment team meeting with the entire team in the afternoon. Overall, the patient remains confused, generally redirectable, doing better in many aspects with becomes impulsive at times, strikes out. REVIEW OF SYSTEMS: No CV, , pulmonary, eye, ENT system symptoms on review. MENTAL STATUS EXAM: Oriented to himself. Insight, judgment, recent and remote memory, attention, concentration, fund of knowledge poor, consistent with his diagnosis mentioned in my initial note. PLAN: No change from initial note. He is being transitioned to [facility], hopefully. ABIGAIL HORNE MD DR: MINOO/parul JOB#: [id number] / [id number]
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
--- NOTE | 2019-07-04 21:47 | PDOC ---
Exam Note: [place] Note: Please also refer to the separate dictated note~for this date of service dictated separately.~Patient seen individually. Discussed the patient with Nursing staff reviewed the chart.~Reviewed interim history and current functioning. Reviewed vital signs,~Labs/ Radiology~and current medications noted below. Continue current treatment with the changes noted in the dictated addendum note Assessment: Vital Signs/I&O: Vital Signs Date Time Temp Pulse Resp B/P (MAP) Pulse Ox O2 Delivery O2 Flow Rate FiO2 07/04/19 20:13 88 97/79 07/04/19 16:05 97.2 20 99 07/01/19 21:37 Room Air I & O 07/03/19 07/03/19 07/04/19 15:00 23:00 07:00 Intake Total 240 ml 600 ml Balance 240 ml 600 ml Current Medications: Meds: Current Medications Medications (Trade) Dose Ordered Sig/Samaria Route PRN Reason Start Time Stop Time Status Last Admin Dose Admin Ziprasidone (Geodon) 80 mg QHS PO 07/04/19 21:00 07/04/19 20:09 I have reviewed the current psychotropics carefully including drug interactions. Risk benefit ratio favors no change other than as noted in my dictated progress note. Diagnosis: Problems: (1) Anxiety disorder (2) Dementia in Alzheimer's disease with delusions (3) Dementia in Alzheimer's disease with depression (4) Dementia, vascular, with delusions (5) Dementia, vascular, with depression (6) Impulse control disorder ABIGAIL HORNE MD Jul 04, 2019 21:47
[2019-07-05 05:54] VITALS: BP 153/84
[2019-07-05] MEDS: INSULIN LISPRO 300 UNITS/3 ML VIAL. SQ SCH ×4 (08:00→17:38)
[2019-07-05] MEDS: ASPIRIN 81 MG TAB.CHEW PO SCH (08:48)
[2019-07-05] MEDS: ZIPRASIDONE 80 MG CAPSULE. PO SCH (08:48)
[2019-07-05] MEDS: metFORMIN XR 500 MG TAB.ER.24H PO SCH ×2 (08:48→17:37)
[2019-07-05] MEDS: VALPROATE ACID 250 MG/5 ML ORAL SOLUTION PO SCH ×2 (08:48→19:55)
[2019-07-05] MEDS: SERTRALINE 100 MG TABLET. PO SCH (08:49)
[2019-07-05] MEDS: LISINOPRIL 5 MG TABLET. PO SCH (08:49)
[2019-07-05] MEDS: ACETAMINOPHEN 500 MG TABLET PO SCH ×2 (08:49→19:56)
[2019-07-05] MEDS: DOCUSATE SODIUM 100 MG CAPSULE PO SCH ×2 (08:49→19:56)
[2019-07-05] MEDS: POTASSIUM CHLORIDE 20 MEQ TABLET.ER. PO SCH ×2 (08:49→19:56)
[2019-07-05] MEDS: FUROSEMIDE 40 MG TABLET PO SCH (08:49)
[2019-07-05] MEDS: POLYETHYLENE GLYCOL 3350 17 GM PACKET. PO SCH (09:00)
[2019-07-05] MEDS: PRAZOSIN 1 MG CAPSULE. PO SCH ×2 (13:36→19:56)
[2019-07-05 16:14] VITALS: BP 177/93
[2019-07-05] MEDS: ZIPRASIDONE 40 MG CAPSULE. PO SCH (19:55)
[2019-07-05] MEDS: FAMOTIDINE 20 MG TABLET PO SCH (19:56)
[2019-07-05] MEDS: ATORVASTATIN CALCIUM 10 MG TABLET. PO SCH (19:57)
[2019-07-05] MEDS: INSULIN GLARGINE SYRINGE. SQ SCH (20:43)
--- NOTE | 2019-07-05 21:31 | PDOC ---
Exam Note: [place] Note: Please also refer to the separate dictated note~for this date of service dictated separately.~Patient seen individually. Discussed the patient with Nursing staff reviewed the chart.~Reviewed interim history and current functioning. Reviewed vital signs,~Labs/ Radiology~and current medications noted below. Continue current treatment with the changes noted in the dictated addendum note Assessment: Vital Signs/I&O: Vital Signs Date Time Temp Pulse Resp B/P (MAP) Pulse Ox O2 Delivery O2 Flow Rate FiO2 07/05/19 19:56 104 131/84 07/05/19 16:14 96.8 16 95 07/01/19 21:37 Room Air I & O 07/04/19 07/04/19 07/05/19 15:00 23:00 07:00 Intake Total 600 ml 480 ml 240 ml Balance 600 ml 480 ml 240 ml Labs: Laboratory Tests Test 07/05/19 07:33 07/05/19 12:08 07/05/19 16:58 07/05/19 19:19 Glucose (Fingerstick) 82 mg/dL (70-99) 137 mg/dL (70-99) H 158 mg/dL (70-99) H 250 mg/dL (70-99) H Current Medications: I have reviewed the current psychotropics carefully including drug interactions. Risk benefit ratio favors no change other than as noted in my dictated progress note. Diagnosis: Problems: (1) Anxiety disorder (2) Dementia in Alzheimer's disease with delusions (3) Dementia in Alzheimer's disease with depression (4) Dementia, vascular, with delusions (5) Dementia, vascular, with depression (6) Impulse control disorder ABIGAIL HORNE MD Jul 05, 2019 21:31
--- NOTE | 2019-07-06 | PN ---
DATE: 07/04/2019 PSYCHIATRIC PROGRESS NOTE This late entry 07/04/2019 covers elements not covered in my initial note. Per GREGORY Crow, the patient slept 7 hours previous night. SUBJECTIVE: He was agitated at dinnertime, received Zyprexa, then did better, blood pressure was somewhat low. Prazosin was held. BP was 97 x 79. No sexually inappropriate behaviors, though he has been blowing some kisses, but much less abrasive and aggressive. REVIEW OF SYSTEMS: No CV, , pulmonary, eye, ENT system symptoms on review. Reliability poor. MENTAL STATUS EXAM: Oriented to himself. Insight, judgment, recent and remote memory, attention, concentration, fund of knowledge poor, consistent with his diagnosis. IMPRESSION: Major neurocognitive disorder, Alzheimer, vascular with delusion, depression, behavioral disturbance, PTSD; anxiety disorder, unspecified; impulse control disorder, unspecified. PLAN: Hold the prazosin if BP lower. Continue rest unchanged. Transition to a lower level of care, whenever this can be arranged. MAN Louie HORNE MD DR: MINOO/parul JOB#: [id number] / [id number]
[2019-07-06] MEDS ORDERED: ZIPR80CA3 PO (01:00)
[2019-07-06] MEDS ORDERED: PRAZ2CAP2 PO (01:01)
[2019-07-06 05:58] VITALS: BP 149/80
[2019-07-06] MEDS: INSULIN LISPRO 300 UNITS/3 ML VIAL. SQ SCH ×3 (08:00→17:22)
[2019-07-06] MEDS: VALPROATE ACID 250 MG/5 ML ORAL SOLUTION PO SCH ×2 (11:51→20:16)
[2019-07-06] MEDS: SERTRALINE 100 MG TABLET. PO SCH (11:52)
[2019-07-06] MEDS: metFORMIN XR 500 MG TAB.ER.24H PO SCH ×2 (11:52→17:21)
[2019-07-06] MEDS: DOCUSATE SODIUM 100 MG CAPSULE PO SCH ×2 (11:52→20:19)
[2019-07-06] MEDS: ZIPRASIDONE 80 MG CAPSULE. PO SCH (11:52)
[2019-07-06] MEDS: POLYETHYLENE GLYCOL 3350 17 GM PACKET. PO SCH (11:52)
[2019-07-06] MEDS: FUROSEMIDE 40 MG TABLET PO SCH (11:53)
[2019-07-06] MEDS: LISINOPRIL 5 MG TABLET. PO SCH (11:53)
[2019-07-06] MEDS: POTASSIUM CHLORIDE 20 MEQ TABLET.ER. PO SCH ×2 (11:53→20:17)
[2019-07-06] MEDS: ASPIRIN 81 MG TAB.CHEW PO SCH (11:53)
[2019-07-06] MEDS: ACETAMINOPHEN 500 MG TABLET PO SCH ×2 (11:53→20:18)
[2019-07-06] MEDS: PRAZOSIN 1 MG CAPSULE. PO SCH ×2 (12:36→20:21)
[2019-07-06 16:33] VITALS: BP 119/72
[2019-07-06] MEDS: ZIPRASIDONE 40 MG CAPSULE. PO SCH (20:17)
[2019-07-06] MEDS: FAMOTIDINE 20 MG TABLET PO SCH (20:17)
[2019-07-06] MEDS: ATORVASTATIN CALCIUM 10 MG TABLET. PO SCH (20:18)
[2019-07-06] MEDS: INSULIN GLARGINE SYRINGE. SQ SCH (20:42)
--- NOTE | 2019-07-06 20:50 | PN ---
DATE: 07/05/2019 PSYCHIATRIC PROGRESS NOTE. This late entry of 07/05/2019 covers the elements not covered in my initial note. SUBJECTIVE: I met with the patient in the evening of 07/05/2019. Per GREGORY Torres, the patient slept 7-1/2 hours previous night. He remains confused, not sexually inappropriate or aggressive, which is an improvement. I have received an email from Emily, [employer] [facility] staff that Dr. Esquivel, patient's [facility] psychiatrist wanted to consult with me on the patient prior to the patient transitioning to their facility. I have reviewed the patient's records and as of the time of this dictation in 07/06/2019, I have left a very detailed message for Dr. Esquivel on her voicemail. REVIEW OF SYSTEMS: No CV, , pulmonary, eye, ENT system symptoms on review. Reliability poor. MENTAL STATUS EXAM: Oriented to himself. Insight, judgment, recent and remote memory, attention, concentration, fund of knowledge poor, consistent with his diagnosis. Speech moderate latency, often responses monosyllabic. LABORATORY DATA: Reviewed. IMPRESSION: Major neurocognitive disorder, Alzheimer, vascular with delusion, depression, behavioral disturbance; anxiety disorder, unspecified; impulse control disorder, unspecified; posttraumatic stress disorder. Rest unchanged. PLAN: Continue psychotropics from initial note including prazosin, which has been reduced due to his PTSD symptoms. Maintain Zoloft; Zyprexa as p.r.n.; Depakene liquid, level is therapeutic at 53; hydroxyzine p.r.n.; Depo-Provera for sexually aggressive behaviors and Geodon 80 mg b.i.d. as a mood stabilizer, atypical antipsychotic. We will adjust further as clinically indicated. MAN Louie HORNE MD DR: MINOO/parul JOB#: [id number] / [id number]
--- NOTE | 2019-07-06 21:28 | PDOC ---
Exam Note: [place] Note: Please also refer to the separate dictated note~for this date of service dictated separately.~Patient seen individually. Discussed the patient with Nursing staff reviewed the chart.~Reviewed interim history and current functioning. Reviewed vital signs,~Labs/ Radiology~and current medications noted below. Continue current treatment with the changes noted in the dictated addendum note Assessment: Vital Signs/I&O: Vital Signs Date Time Temp Pulse Resp B/P (MAP) Pulse Ox O2 Delivery O2 Flow Rate FiO2 07/06/19 20:21 82 117/71 07/06/19 16:33 97.4 16 100 07/01/19 21:37 Room Air I & O 07/05/19 07/05/19 07/06/19 15:00 23:00 07:00 Intake Total 600 ml 360 ml 120 ml Balance 600 ml 360 ml 120 ml Labs: Laboratory Tests Test 07/06/19 07:57 07/06/19 11:56 07/06/19 16:33 07/06/19 20:16 Glucose (Fingerstick) 75 mg/dL (70-99) 127 mg/dL (70-99) H 168 mg/dL (70-99) H 94 mg/dL (70-99) Current Medications: I have reviewed the current psychotropics carefully including drug interactions. Risk benefit ratio favors no change other than as noted in my dictated progress note. Diagnosis: Problems: (1) Anxiety disorder (2) Dementia in Alzheimer's disease with delusions (3) Dementia in Alzheimer's disease with depression (4) Dementia, vascular, with delusions (5) Dementia, vascular, with depression (6) Impulse control disorder ABIGAIL HORNE MD Jul 06, 2019 21:28
[2019-07-07 05:58] VITALS: BP 149/83
[2019-07-07] MEDS: INSULIN LISPRO 300 UNITS/3 ML VIAL. SQ SCH ×3 (08:00→17:31)
[2019-07-07] MEDS ORDERED: METHYLPREDNISOLONE ACETATE IM SCH (09:00)
[2019-07-07] MEDS: DOCUSATE SODIUM 100 MG CAPSULE PO SCH (09:00)
[2019-07-07] MEDS: POLYETHYLENE GLYCOL 3350 17 GM PACKET. PO SCH (09:00)
[2019-07-07] MEDS: VALPROATE ACID 250 MG/5 ML ORAL SOLUTION PO SCH ×2 (11:56→20:32)
[2019-07-07] MEDS: LISINOPRIL 5 MG TABLET. PO SCH (11:57)
[2019-07-07] MEDS: POTASSIUM CHLORIDE 20 MEQ TABLET.ER. PO SCH ×2 (11:57→20:30)
[2019-07-07] MEDS: metFORMIN XR 500 MG TAB.ER.24H PO SCH ×2 (11:57→17:28)
[2019-07-07] MEDS: SERTRALINE 100 MG TABLET. PO SCH (11:58)
[2019-07-07] MEDS: FUROSEMIDE 40 MG TABLET PO SCH (11:58)
[2019-07-07] MEDS: ACETAMINOPHEN 500 MG TABLET PO SCH ×2 (11:58→20:30)
[2019-07-07] MEDS: ASPIRIN 81 MG TAB.CHEW PO SCH (11:58)
[2019-07-07] MEDS: ZIPRASIDONE 80 MG CAPSULE. PO SCH (11:58)
[2019-07-07] MEDS: PRAZOSIN 1 MG CAPSULE. PO SCH ×2 (12:57→20:31)
[2019-07-07 16:19] VITALS: BP 102/69
[2019-07-07] MEDS ORDERED: DOCUSATE SODIUM 100 MG CAPSULE PO PRN (18:45)
[2019-07-07] MEDS ORDERED: POLYETHYLENE GLYCOL 3350 17 GM PACKET. PO PRN (18:45)
[2019-07-07] MEDS: ZIPRASIDONE 40 MG CAPSULE. PO SCH (20:30)
[2019-07-07] MEDS: FAMOTIDINE 20 MG TABLET PO SCH (20:31)
[2019-07-07] MEDS: ATORVASTATIN CALCIUM 10 MG TABLET. PO SCH (20:32)
[2019-07-07] MEDS: INSULIN GLARGINE SYRINGE. SQ SCH (20:33)
--- NOTE | 2019-07-07 21:26 | PDOC ---
Exam Note: [place] Note: Please also refer to the separate dictated note~for this date of service dictated separately.~Patient seen individually. Discussed the patient with Nursing staff reviewed the chart.~Reviewed interim history and current functioning. Reviewed vital signs,~Labs/ Radiology~and current medications noted below. Continue current treatment with the changes noted in the dictated addendum note Assessment: Vital Signs/I&O: Vital Signs Date Time Temp Pulse Resp B/P (MAP) Pulse Ox O2 Delivery O2 Flow Rate FiO2 07/07/19 20:31 80 111/68 07/07/19 16:19 97.3 18 100 07/01/19 21:37 Room Air I & O 07/06/19 07/06/19 07/07/19 15:00 23:00 07:00 Intake Total 360 ml 600 ml 240 ml Balance 360 ml 600 ml 240 ml Labs: Laboratory Tests Test 07/07/19 07:25 07/07/19 12:01 07/07/19 16:48 07/07/19 19:15 Glucose (Fingerstick) 124 mg/dL (70-99) H 119 mg/dL (70-99) H 192 mg/dL (70-99) H 212 mg/dL (70-99) H Current Medications: I have reviewed the current psychotropics carefully including drug interactions. Risk benefit ratio favors no change other than as noted in my dictated progress note. Diagnosis: Problems: (1) Anxiety disorder (2) Dementia in Alzheimer's disease with delusions (3) Dementia in Alzheimer's disease with depression (4) Dementia, vascular, with delusions (5) Dementia, vascular, with depression (6) Impulse control disorder ABIGAIL HORNE MD Jul 07, 2019 21:26
--- NOTE | 2019-07-07 22:02 | PN ---
DATE: 07/06/2019 PSYCHIATRIC PROGRESS NOTE This late entry 07/06/2019 covers the elements not covered in my initial note. SUBJECTIVE: I met with the patient in the evening of 07/06/2019. Per GREGORY Torres, the patient slept 6-3/4 hours previous night. He has had a good day, slept until 11 a.m. No sexually inappropriate behaviors, not aggressive. REVIEW OF SYSTEMS: No CV, , pulmonary, eye, ENT system symptoms on review. Reliability poor. MENTAL STATUS EXAM: Oriented to himself. Insight, judgment, recent and remote memory, attention, concentration, fund of knowledge poor, consistent with his diagnosis. Speech moderate latency, often responses monosyllabic. LABORATORY DATA: Reviewed. IMPRESSION: Major neurocognitive disorder, probably vascular with delusion, depression, behavioral disturbance, PTSD; anxiety disorder, unspecified; impulse control disorder, unspecified. PLAN: Continue current psychotropics including Depo-Provera, prazosin for PTSD, Depakene for his mood stabilization, Geodon 80 mg twice a day, Zyprexa p.r.n., hydroxyzine p.r.n. MAN Louie HORNE MD DR: MINOO/parul JOB#: [id number] / [id number]
[2019-07-08 05:28] VITALS: BP 135/78
[2019-07-08] MEDS: VALPROATE ACID 250 MG/5 ML ORAL SOLUTION PO SCH (08:03)
[2019-07-08] MEDS: ASPIRIN 81 MG TAB.CHEW PO SCH (08:04)
[2019-07-08] MEDS: ACETAMINOPHEN 500 MG TABLET PO SCH (08:04)
[2019-07-08] MEDS: SERTRALINE 100 MG TABLET. PO SCH (08:04)
[2019-07-08] MEDS: metFORMIN XR 500 MG TAB.ER.24H PO SCH (08:05)
[2019-07-08] MEDS: POTASSIUM CHLORIDE 20 MEQ TABLET.ER. PO SCH (08:05)
[2019-07-08] MEDS: ZIPRASIDONE 80 MG CAPSULE. PO SCH (08:05)
[2019-07-08] MEDS: FUROSEMIDE 40 MG TABLET PO SCH (08:05)
[2019-07-08 08:06] VITALS: BP 135/78
[2019-07-08] MEDS: LISINOPRIL 5 MG TABLET. PO SCH (08:06)
[2019-07-08] MEDS: INSULIN LISPRO 300 UNITS/3 ML VIAL. SQ SCH (08:16)
[2019-07-08] MEDS ORDERED: medroxyPROGESTERone IM 150 MG/ML VIAL. IM SCH (09:00)
--- NOTE | 2019-07-08 21:18 | PDOC ---
Exam Note: [place] Note: Please also refer to the separate dictated note~for this date of service dictated separately.~Patient seen individually. Discussed the patient with Nursing staff reviewed the chart.~Reviewed interim history and current functioning. Reviewed vital signs,~Labs/ Radiology~and current medications noted below. Continue current treatment with the changes noted in the dictated addendum note Assessment: Vital Signs/I&O: Vital Signs Date Time Temp Pulse Resp B/P (MAP) Pulse Ox O2 Delivery O2 Flow Rate FiO2 07/08/19 08:06 72 135/78 07/08/19 05:28 97.5 20 98 Room Air I & O 07/07/19 07/07/19 07/08/19 15:00 23:00 07:00 Intake Total 240 ml 240 ml 240 ml Balance 240 ml 240 ml 240 ml Labs: Laboratory Tests Test 07/08/19 07:29 Glucose (Fingerstick) 123 mg/dL (70-99) H Current Medications: Meds: Current Medications Medications (Trade) Dose Ordered Sig/Samaria Route PRN Reason Start Time Stop Time Status Last Admin Dose Admin Medroxyprogesterone Acetate (Depo-Provera Im) 150 mg Q2WKS IM 07/08/19 09:00 07/08/19 09:06 DC 07/08/19 08:05 I have reviewed the current psychotropics carefully including drug interactions. Risk benefit ratio favors no change other than as noted in my dictated progress note. Diagnosis: Problems: (1) Anxiety disorder (2) Dementia in Alzheimer's disease with delusions (3) Dementia in Alzheimer's disease with depression (4) Dementia, vascular, with delusions (5) Dementia, vascular, with depression (6) Impulse control disorder ABIGAIL HORNE MD Jul 08, 2019 21:18
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
--- NOTE | 2019-07-10 00:02 | PN ---
DATE: 07/07/2019 PSYCHIATRIC PROGRESS NOTE This late entry of 07/07/2019 covers elements not covered in my initial note. SUBJECTIVE: I met with the patient in the evening of 07/07/2019. I returned a call from Dr. Brandon, psychiatrist inpatient service at the [facility] and had a lengthy discussion with her about the patient's history, diagnosis, and current psychotropics medication response. IA is planning to transition the patient directly to the inpatient facility before looking at a lower level of care. Overall, the patient has done reasonably well, somewhat irritable at times, got up at 11:00 a.m., slept 7 hours previous night. REVIEW OF SYSTEMS: No CV, , pulmonary, eye, ENT system symptoms on review. Reliability poor. MENTAL STATUS EXAM: Oriented to himself. Insight, judgment, recent and remote memory, attention, concentration, fund of knowledge poor, consistent with his diagnosis. IMPRESSION: Major neurocognitive disorder, Alzheimer, vascular with delusion, depression, behavioral disturbance, posttraumatic stress disorder; anxiety disorder, unspecified. Rest unchanged. PLAN: Continue psychotropics from initial note, possible transition to [facility] on 07/08/2019. MAN Louie HORNE MD DR: MINOO/parul JOB#: [id number] / [id number]
== END 2019-07-08 08:55 | disposition short-term general hospital (02) | DRG 57 ==
LOC: GEROPSY 17:47
PROVIDERS: ADMIT Psychiatry & Neurology Psychiatry; ATTEND Psychiatry & Neurology Psychiatry
DX: G30.9 Alzheimer's disease, unspecified (principal); I13.0 Hypertensive heart and chronic kidney disease with heart failure and stage 1 through stage 4 chronic kidney disease, or unspecified chronic kidney disease; F01.51 Vascular dementia, unspecified severity, with behavioral disturbance; F02.81 Dementia in other diseases classified elsewhere, unspecified severity, with behavioral disturbance; F43.10 Post-traumatic stress disorder, unspecified; I50.9 Heart failure, unspecified; Z66 Do not resuscitate; F32.9 Major depressive disorder, single episode, unspecified; F41.1 Generalized anxiety disorder; F63.9 Impulse disorder, unspecified; E11.42 Type 2 diabetes mellitus with diabetic polyneuropathy; E11.21 Type 2 diabetes mellitus with diabetic nephropathy; N18.9 Chronic kidney disease, unspecified; E11.22 Type 2 diabetes mellitus with diabetic chronic kidney disease; N40.0 Benign prostatic hyperplasia without lower urinary tract symptoms; G47.33 Obstructive sleep apnea (adult) (pediatric); K21.9 Gastro-esophageal reflux disease without esophagitis; M19.90 Unspecified osteoarthritis, unspecified site; N52.9 Male erectile dysfunction, unspecified; Z88.8 Allergy status to other drugs, medicaments and biological substances; Z79.899 Other long term (current) drug therapy; E83.42 Hypomagnesemia; E11.319 Type 2 diabetes mellitus with unspecified diabetic retinopathy without macular edema; E78.5 Hyperlipidemia, unspecified
CPT/HCPCS: 36415; 70450; 71045; 72125; 73521; 80053; 80061; 80164; 81001; 82140; 82306; 82607; 82947; 83036; 83540; 83550; 83605; 83735; 84436; 84443; 84480; 85007; 85025; 86592; 90471; 90686; 93005; J1050; J1815; 92610; 97110; 97116; 97530